=== PATIENT | male | born 1935 | race Caucasian/White ===

== ENCOUNTER 2017-04-09 21:26 | Inpatient (IN) | payer MEDICARE ==
[~2017-04-09] VITALS: Ht 185.4 cm; Wt 90.0 kg
--- NOTE | ~2017-04-09 | HEMODYNAMI ---
PATIENT:SALENA MCKEON MEDICAL RECORD: [id number] : 31 [facility] [id number] ADMISSION DATE: 04/09/17 Generatedon:04/10/201715:27 Patient name: SALENA MCKEON Patient #: [id number] : 1935 Date of study: 04/10/2017 Page: Of Hemodynamic Procedure Report Patient Data Patient Demographics Procedure consent was obtained First Name: SALENA Gender: Male Last Name: LINDA : 1935 [facility] Initial: TAMIR Age: 81 year(s) Patient #: [id number] Race: Unknown SSN: [id number] Additional ID: [id number] Contact details Address: [place] [address] State: [place] City: [place] Zip code: [address] Past Medical History Allergies: No known allergies Admission Admission Data Admission Date: 04/09/2017 Admission Time: 23:16 Arrival Date: 04/09/2017 Arrival Time: 23:16 Admit Source: Other Insurance Payor: Medicare Room #: D.2204 Height (in.): 72 BSA: 2.08 (m2) Height (cm.): 182.88 BMI: 25.63 (kg/m2) Weight (lbs.): 189 Weight (kg.): 85.73 Lab Results Lab Result Date: 04/10/2017 Lab Result Time: 0:00 Biochemistry Name Units Result Min Max BUN mg/dl 36 --(----)-* 7 18 Creatinine mg/dl 1.8 --(----)-* 0.6 1.3 CBC Name Units Result Min Max Hemoglobin g/dl 12.5 *-(----)-- 13.5 17.5 Procedure Procedure Types Cath Procedure Diagnostic Procedure LHC LHC w/Coronaries PCI Procedure Coronary Stent Initial Miscellaneous Procedures Moderate Sedation up to 30 minutes Procedure Description Procedure Date Procedure Date: 04/10/2017 Procedure Start Time: 14:59 Procedure End Time: 15:24 Procedure Staff Name Function Anuj Avalos MD Performing Physician Ally Hernandez RT Scrub Aury Watson RN Nurse Val Ram RT Monitor Procedure Data Cath Procedure Fluoroscopy Diagnostic fluoroscopy Total fluoroscopy Time: 3.6 time: 3.6 min min Diagnostic fluoroscopy Total fluoroscopy dose: 797 dose: 797 mGy mGy Contrast Material Contrast Material Type Amount (ml) Isovue 370 77 Entry Location Entry Primary Successful Side Size Upsize Upsize Entry Closure [place]dwell ccessful Closure Location (Fr) 1 (Fr) 2 (Fr) Remarks Device Remarks Radial Right 6 Fr Mechanical artery Short Compression Estimated blood loss: 5 ml Diagnostic catheters Device Type Used For End Catheter Placement TerumWami Optitorque 5Fr Multi-vessel [place] 4.5 catheter Angiography Procedure Complications No complications Procedure Medications Medication Administration Route Dosage Oxygen NC 2 l/min Lidocaine 2% added to field 20 Heparin Flush Bag added to field 2 bags (1000units/500ml NS) 0.9% NaCl I.V. 100 ml/hr Benadryl I.V. 50 mg Versed I.V. 1 mg Fentanyl I.V. 50 mcg Radial Cocktail I.A. 1 syringe (Verapomil 2mg/Nitro 400mcg/Heparin 1500units) Heparin Bolus I.V. 4000 units Integrilin (Bolus I.V. 7.9 ml 2mg/ml) Plavix P.O. 300 mg Versed I.V. 1 mg Fentanyl I.V. 50 mcg Aspirin P.O. 325 mg Hemodynamics Rest BSA: 2.08 (m2) HGB: 12.5 (g/dl) O2 Consumption: Estimated: 247.14 (ml/min) O2 Co nsumption indexed: Estimated:118.82 (ml/min/m) Heart Rate: 83 (bpm) Pressure Samples Time Site Value (mmHg) Purpose Heart Use Rate(bpm) 15:04 LV 108/8,9 Snapshot 96 Snapshots Pre Cath Intra NCS Post Cath Vital Signs Time Heart Resp SPO2 etCO2 OO5xerh NIBP (mmHg) Rhythm Pain Sedation Rate (ipm) (%) (mmHg) (mmHg) Status Level (bpm) 14:45:03 83 28 95 0 0 128/76(95) NSR 0 (11) 10(A) , No pain 14:49:15 81 16 96 0 0 120/75(97) NSR 0 (11) 10(A) , No pain 14:53:25 81 25 95 0 0 129/80(106) NSR 0 (11) 10(A) , No pain 14:58:24 80 15 95 0 0 129/83(109) NSR 0 (11) 10(A) , No pain 15:02:36 77 17 94 0 0 117/75(97) NSR 0 (11) 9(A) , No pain 15:06:46 82 18 95 0 0 96/62(80) NSR 0 (11) 9(A) , No pain 15:10:52 83 19 95 0 0 101/59(84) NSR 0 (11) 9(A) , No pain 15:14:57 81 19 94 0 0 103/64(82) NSR 0 (11) 9(A) , No pain 15:19:01 84 23 94 0 0 112/71(90) NSR 0 (11) 10(A) , No pain Medications Time Medication Route Dose Verified Delivered Reason Note s Effectiveness by by 14:53:28 Oxygen NC 2 l/min Anuj Buffie used for Robbie Watson RN procedure 14:53:36 Lidocaine 2% added 20ml Anuj Anuj for local to vial Robbie Avalos MD anesthetic field 14:53:45 Heparin Flush added 2 bags Anuj Anuj used for Bag to Robbie Avalos MD procedure (1000units/500ml field NS) 14:53:58 0.9% NaCl I.V. 100 Anujfariba Schneiderie used for ml/hr Robbie Watson strategic communications specialist 14:54:07 Benadryl I.V. 50 mg Anuj Buffie used for Robbie Watson RN procedure 15:00:32 Versed I.V. 1 mg Anuj Buffie for sedation Robbie Watson RN 15:00:38 Fentanyl I.V. 50 mcg Anuj Buffie for sedation Robbie Watson RN 15:02:51 Radial Cocktail I.A. 1 Anuj Anuj for (Verapomil syringe Robbie Avalos MD vasodilation 2mg/Nitro 400mcg/Heparin 1500units) 15:05:02 Versed I.V. 1 mg Anuj Schneiderie for sedation Robbie Watson RN 15:05:06 Fentanyl I.V. 50 mcg Anuj Jeffers for sedation Robbie Watson RN 15:10:48 Heparin Bolus I.V. 4000 Anuj Jeffers for veri fied units Robbie Watson RN anticoagulation with dr avalos 15:13:10 Integrilin I.V. 7.9 ml Anuj Jeffers for wast ed (Bolus 2mg/ml) Robbie Watson RN antiplatelet 2.1 ml therapy of vial 15:19:56 Plavix P.O. 300 mg Anuj Watson RN antiplatelet therapy 15:21:12 Aspirin P.O. 325 mg Anuj Jeffers for Robbie Watson RN antiplatelet therapy Procedure Log Time Note 14:37:18 Diagnostic Cath Status : Elective 14:37:47 Aury Watson RN sent for patient. Start room use. 14:37:48 Time tracking: Regular hours 14:37:55 Plan of Care:Hemodynamics will remain stable., Cardiac rhythm will remain stable., Comfort level will be maintained., Respiratory function will remain adequate., Patient/ family verbilizes understanding of procedure., Procedure tolerated without complication., Recovers from procedure without complications.. 14:38:08 Patient received from Med/Surg to CCL 1 Alert and oriented. Tansferred to table in Supine position. 14:40:10 Warm blankets applied, and miranda hugger turned on for patient comfort. 14:40:11 Correct patient and procedure confirmed by team. 14:40:13 Signed procedure consent form obtained from patient. 14:40:22 H&P Date Dictated: 04/09/2017 Within 30 days and on chart., H&P Addendum completed by physician on day of procedure. (MUST COMPLETE FOR ALL OUTPATIENTS). 14:40:23 Pre-procedure instructions explained to patient. 14:40:27 Family in waiting room. 14:40:29 Patient NPO since Midnight. 14:41:07 Patient allergic to No known allergies 14:41:15 Is the patient allergic to Iodine/contrast media? No. 14:42:07 Snore? Yes 14:42:28 Sleep apnea? No 14:42:31 Patient diabetic? Yes. 14:42:59 Airway obstruction? Yes Asthma 14:43:12 If diabetic: On Metformin? No 14:43:50 ECG and BP/O2 sat monitors applied to patient. 14:43:57 Vital chart was started 14:44:01 Baseline sample Acquired. 14:44:05 Rhythm: sinus rhythm 14:44:08 Full Disclosure recording started 14:44:28 Is patient on blood thinner?Yes 14:44:38 ACC The patient was administered the following blood thiners within the last 24 hours: ACCPlavix 14:44:43 Patient pain scale 0/10 ?. 14:44:55 IV patent on arrival in left forearm with 0.9% NaCl at [facility]. 14:45:03 Lab results completed and on chart. 14:45:08 Right Radial & Right Groin area was prepped with chlora-prep and draped in sterile fashion 14:45:09 Alarms reviewed by R. N. 14:45:10 Sharps counted by scrub and verified by R.N. 14:45:11 Physician paged 14:45:20 Use device set Radial Dx 14:45:22 Acist Syringe opened to sterile field. 14:45:22 Medline Cath Pack opened to sterile field. 14:45:23 Bag Decanter opened to sterile field. 14:45:23 Terumo 6Fr Slender Glidesheath opened to sterile field. 14:45:23 St Tino 260cm J .035 wire opened to sterile field. 14:45:24 Acist Hand Control opened to sterile field. 14:45:24 Acist Manifold opened to sterile field. 14:45:25 Tegaderm 4 x 4 opened to sterile field. 14:45:25 MBrace Wrist Support opened to sterile field. 14:51:30 Previous problem with sedation/anesthesia? No ? 14:51:33 Deviated septum? No 14:51:33 Opens mouth fully? Yes 14:51:34 Sticks out tongue? Yes 14:51:38 Dentures? No ? 14:53:28 Oxygen 2 l/min NC was administered by Aury Watson RN; used for procedure; 14:53:36 Lidocaine 2% 20ml vial added to field was administered by Anuj Avalos MD; for local anesthetic; 14:53:45 Heparin Flush Bag (1000units/500ml NS) 2 bags added to field was administered by Anuj Avalos MD; used for procedure; 14:53:58 0.9% NaCl 100 ml/hr I.V. was administered by Buffie Watson RN; used for procedure; 14:54:07 Benadryl 50 mg I.V. was administered by Aury Watson RN; used for procedure; 14:54:55 Pre procedure: right dorsailis pedis pulse 1+ Palpable, but thready & weak; easily obliterated 14:55:08 Physician arrived 14:55:09 --------ALL STOP TIME OUT------ 14:55:09 Final Timeout: patient, procedure, and site verified with staff and physician. All members of the team are in agreement. 14:55:13 Right Radial & Right Groin site verified by team. 14:55:18 Physical assessment completed. ASA score P 2 - A patient with mild systemic disease as per Anuj Avalos MD. 14:55:22 Sedation plan: IV Moderate Sedation Versed, Fentanyl 14:55:34 Use device set Radial Dx 14:55:35 Acist Syringe opened to sterile field. 14:55:35 Medline Cath Pack opened to sterile field. 14:55:36 Bag Decanter opened to sterile field. 14:55:36 Terumo 6Fr Slender Glidesheath opened to sterile field. 14:55:37 St Tino 260cm J .035 wire opened to sterile field. 14:55:38 Acist Hand Control opened to sterile field. 14:55:38 Acist Manifold opened to sterile field. 14:55:38 Tegaderm 4 x 4 opened to sterile field. 14:55:39 MBrace Wrist Support opened to sterile field. 14:59:46 Procedure started. 14:59:53 Local anesthetic to right radial artery with Lidocaine 2% by Anuj Avalos MD.INITIAL ACCESS ONLY 15:00:03 A 6 Fr Short sheath was inserted into the Right Radial artery 15:00:32 Versed 1 mg I.V. was administered by Aury Watson RN; for sedation; 15:00:38 Fentanyl 50 mcg I.V. was administered by Aury Watson RN; for sedation; 15:02:51 Radial Cocktail (Verapomil 2mg/Nitro 400mcg/Heparin 1500units) 1 syringe I.A. was administered by Anuj Avalos MD; for vasodilation; 15:02:54 A Terumo Optitorque 5Fr [place] 4.5 catheter was advanced over the wire and used for Multi-vessel Angiography. 15:04:05 LV hemodynamics recorded. 15:04:06 LV gram done using BAUM 15:04:15 EF : 55 % 15:05:02 Versed 1 mg I.V. was administered by Aury Watson RN; for sedation; 15:05:06 Fentanyl 50 mcg I.V. was administered by Aury Watson RN; for sedation; 15:06:00 RCA angiography performed. 15:06:03 Injector settings: Ml/sec: 3, Volume: 6, 15:06:06 Catheter removed. 15:06:31 Cordis 6FR XBLAD 3.5 guide catheter opened to sterile field. 15:08:36 LCA angiography performed. 15:08:39 Injector settings: Ml/sec: 3, Volume: 6, 15:10:48 Heparin Bolus 4000 units I.V. was administered by Aury Watson RN; for anticoagulation; verified with dr avalos 15:11:04 Catheter removed. 15:11:15 Proceeding to intervention. 15:11:40 Novogen BasixCompak Inflation Kit opened to sterile field. 15:11:41 Guillaume Whisper J 300cm 0.014 guide wire opened to sterile field. 15:12:14 Medtronic Launcher 6Fr AR 1.0 guide catheter opened to sterile field. 15:12:46 6 Fr ar 1 guide catheter was inserted over the wire 15:12:54 Achieve3000isper wire advanced. 15:13:10 Integrilin (Bolus 2mg/ml) 7.9 ml I.V. was administered by Aury Watson RN; for antiplatelet therapy; wasted 2.1 ml of vial 15:15:12 Inflation Number: 1 A Biofreedom 3.5 x 11 stent (No Cost Implant) was prepped and advanced across the Mid RCA. The stent was deployed at 11 LILA for 0:10 (min:sec). 15:16:36 Stent catheter was removed intact over wire. 15:16:36 Wire removed. 15:16:37 Guide catheter removed. 15:16:54 Terumo TR Band Standard opened to sterile field. 15:17:06 Sheath removed intact; hemostasis achieved with Mechanical Compression to the Right Radial artery. 15:17:08 Procedure ended.(Physican Out) 15:17:28 Fluoroscopy time 03.60 minutes. 15:17:37 Fluoroscopy dose: 797 mGy 15:17:37 Flurop Dose total: 797 15:17:48 Contrast amount:Isovue 370 77ml. 15:17:50 Sharps counted by scrub and verified by R.N. 15:17:51 Insertion/operative site no bleeding no hematoma. 15:17:55 Post right radial artery:stable 15:17:57 Post Procedure Pulses reassessed and unchanged 15:17:59 Post procedure rhythm: unchanged. 15:18:02 Estimated blood loss: 5 ml 15:18:03 Post procedure instruction explained to patient.Patient verbalizes understanding. 15:18:04 Patient needs reinforcement of post procedure teaching. 15:18:25 Procedure type changed to Cath procedure, Diagnostic procedure, LHC, LHC w/Coronaries, PCI procedure, Coronary Stent Initial, Miscellaneous Procedures, Moderate Sedation up to 30 minutes 15:18:26 Procedure and supply charges have been captured, reviewed, submitted and are correct. 15:18:31 Procedure Complication : No complications 15:18:34 Vital chart was stopped 15:18:34 See physician's report for complete and final results. 15:19:53 Patient Weight : 189 kg 15:19:55 Patient Height : 72 cm 15:19:56 Plavix 300 mg P.O. was administered by Aury Watson RN; for antiplatelet therapy; 15:19:56 Admit Source: Other 15:20:09 Arrival Date: 04/09/2017 11:16:00 PM 15:20:16 Insurance Payor : Medicare 15:21:12 Aspirin 325 mg P.O. was administered by Aury Watosn RN; for antiplatelet therapy; 15:23:38 Lab Result : Hemoglobin 12.5 g/dl 15:23:38 Lab Result : Creatinine 1.8 mg/dl 15:23:38 Lab Result : BUN 36 mg/dl 15:24:21 Patient transfered to [facility] with Stretcher. 15:24:23 Procedure ended. 15:24:23 Full Disclosure recording stopped 15:24:30 ACC-PCI Only Patient was given prescriptions, or instructed by Anuj Avalos MD to start/continue the following medications upon discharge: Plavix 15:24:32 End room use (Document Last) Intervention Summary Intervention Notes Time ActionType Lesion and Equipment Action# Pressure Duration Attributes Used 15:15:12 Place stent Mid RCA Biofreedom 1 11 00:10 3.5 x 11 stent (No Cost Implant) Device Usage Item Name Manufacture Quantity Catalog Hospital Part Current Minimal Lot# / Number Charge Number Stock Stock Serial# Code Acist Acist 2 06932 999934 125418 013192 20 Syringe Medical Systems Inc Medline Cardinal 2 [id number] 214226 30783 267657 5 Cath Pack Health Bag Microtek 2 2002S 579385 92584 355911 5 DecSpecialtyCare Medical Inc. Terumo 6Fr Terumo 2 [id number] 068239 220955 670290 [address] Tino St Tino 2 938038 559028 360701 779802 30 260cm J .035 wire Acist Hand Acist 2 54115 859844 493517 354369 5 Control Medical Systems Inc Acist Acist 2 16866 700972 525052 848141 5 Manifold Medical Systems Inc Tegaderm 4 3M 2 1626W 803439 072551 606906 5 x 4 MBrace Advanced 2 140-0250-00 422865 53662 674503 5 Wrist Vascular Support Dynamics Terumo Terumo 1 405012 711947 620304 386990 5 Optitorque 5Fr [place] 4.5 catheter Cordis 6FR Cardinal 1 [id number] 828605 253814 602598 10 XBLAD 3.5 Health guide catheter Merit Merit 1 [id number] 304991 186355 127000 15 BasixCompak Medical Inflation Kit Guillaume Guillaume 1 [id number] 272173 198685 270744 5 Whisper J Vascular 300cm 0.014 guide wire Medtronic Medtronic 1 [id number] 840169 80864 978002 1 Launcher 6Fr AR 1.0 guide catheter Biofreedom Biosensors 1 [facility]2-9397 430840 975498 5 [id number] 3.5 x 11 [place] SA stent (No Cost Implant) Terumo TR Terumo 1 [id number] 198649 874097 391881 40 Band Standard Signature Audit Early Stage Time Signature Unsigned Intra-Procedure 04/10/2017 Val Ram 3:27:10 PM RT(R) Signatures Monitor : Val Ram RT Signature : Date : Time : [place] [address] [place] [address]
[~2017-04-09 21:26] MED LIST: ADVAIR 250/501 DISK INH; CATAPRES0.1 MG PO; COMBIVENT RESPIM4 GM INH; COREG 3.1253.125 MG PO; ELIQUIS5 MG PO; FISH OIL 1,2001 CA1 PO; FLOMAX0.4 MG PO; GLUCOTROL XL 1010 MG PO; HEMOCYTE PLUS C1 CAP PO; HYDROCODONE-APA1 TAB PO; JANUMET 50-1,001 TAB PO; JANUVIA50 MG PO; LANOXIN125 MCG PO; LASIX20 MG PO; LEVAQUIN500 MG PO; LIPITOR20 MG PO; MUCINEX600 MG PO; PLAVIX75 MG PO; PRADAXA150 MG PO; PRAVACHOL20 MG PO; PROVENTIL/2.5 MG/3 M INH; PROVENTIL/2.5 MG/3 M NEB; RYTHMOL150 MG GT; SAW PALMETTO450 MG PO; SINGULAIR10 MG PO; SYNTHROID125 MCG PO; VITAMIN C1000 MG PO; VITAMIN D31000 UNIT PO; ZESTRIL10 MG PO
[2017-04-09 22:27] LABS: BASOPHILS 0.1 % (0-2); HEMATOCRIT 38.1 % (42.0-54.0); HEMOGLOBIN 12.4 g/dL (13.5-17.5); IMMATURE GRANULOCYTES 0.2 % (0-5); LYMPHOCYTES 4.4 % (15-50); MCH 30.5 pg (26.0-34.0); MCHC 32.5 g/dL (31.0-37.0); MCV 93.6 fL (80.0-100.0); MEAN PLATELET VOLUME 10.6 fL (7.4-10.4); MONOCYTES 8.1 % (2-11); NEUTROPHILS 86.2 % (40-80); PLATELET COUNT 164 10x3/uL (130-400); RBC 4.07 10x6/uL (4.20-6.10); RDW 15.3 % (11.5-14.5); WBC 10.3 10x3/uL (4.8-10.8)
[2017-04-09 22:32] LABS: ALBUMIN 3.6 g/dL (3.4-5.0); ANION GAP 13.3 mmol/L (8-16); BILIRUBIN - TOTAL 1.36 mg/dL (0.2-1.3); CALCIUM 9.5 mg/dL (8.5-10.1); CARBON DIOXIDE 27.3 mmol/L (21.0-32.0); CREATININE - SERUM 1.8 mg/dL (0.6-1.3); POTASSIUM - SERUM 4.6 mmol/L (3.5-5.1); PROTEIN - SERUM 7.9 g/dL (6.4-8.2)
[2017-04-09 22:53] LABS: TROPONIN-I 0.225 ng/mL (0.000-0.060)
--- NOTE | 2017-04-10 00:30 | NUR ---
PT ARRIVED TO FLOOR FROM ER VIA WHEELCHAIR ESCORTED BY HOSPITAL STAFF. PT UP AD HARVINDER. ALERT AND ORIENTED X4. ANSWERS QUESTIONS APPROPRIATELY. PT DENIES PAIN OR NEEDS AT THIS TIME. CALL LIGHT AND H2O IN PT REACH. BED IN LOW POSITION. SIDE RAILS UP X2.
[2017-04-10 00:31] VITALS: BP 106/67; BMI 24.9
[2017-04-10 04:00] VITALS: BP 121/68; BP 127/71
--- NOTE | 2017-04-10 07:15 | NUR ---
PATIENT RECEIVED IN LOW MOYA POSITION RESTING WITH EYES CLOSED. RESPIRATIONS EVEN AND UNLABORED. BED IN LOW POSITION. CALL LIGHT IN REACH.
[2017-04-10 07:51] VITALS: BP 125/74
--- NOTE | 2017-04-10 07:55 | NUR ---
PATIENT PLACED ON TELEMETRY PER ORDERS. ELECTRONICS PROCESSOR REPORTS 83 SINUS RHYTHM WITH 1ST DEGREE AV BLOCK. PATIENT REFUSES SCDS STATES HE WOULD RATHER JUST GET UP A WALK.
[2017-04-10 09:18] LABS: CKMB 1.9 U/L (0.0-3.6); CREATINE KINASE 52 UL (21-232)
[2017-04-10 10:28] LABS: BASOPHILS 0 % (0-2); EOSINOPHILS 0 % (0-7); HEMATOCRIT 38.8 % (42.0-54.0); HEMOGLOBIN 12.5 g/dL (13.5-17.5); IMMATURE GRANULOCYTES 0.2 % (0-5); LYMPHOCYTES 5.7 % (15-50); MCH 30.3 pg (26.0-34.0); MCHC 32.2 g/dL (31.0-37.0); MCV 93.9 fL (80.0-100.0); MEAN PLATELET VOLUME 10.6 fL (7.4-10.4); MONOCYTES 2.5 % (2-11); NEUTROPHILS 91.6 % (40-80); PLATELET COUNT 143 10x3/uL (130-400); RBC 4.13 10x6/uL (4.20-6.10); RDW 15.4 % (11.5-14.5)
[2017-04-10 10:29] LABS: WBC 5.6 10x3/uL (4.8-10.8)
[2017-04-10 10:52] VITALS: Ht 185.4 cm; Wt 90.0 kg
[2017-04-10 12:00] VITALS: BP 114/62
[2017-04-10] MEDS ORDERED: GLIMEPIRIDE2 MG PO (12:00)
--- NOTE | 2017-04-10 12:00 | NUR ---
SITTING UP IN CHAIR AT BEDSIDE. NO SIGNS OF DISTRESS NOTED. DENIES NEEDS. CALL LIGHT IN REACH.
[2017-04-10] MEDS ORDERED: FUROSEMIDE20 MG PO (12:01)
[2017-04-10] MEDS ORDERED: CELEXA10 MG PO (12:01)
--- NOTE | 2017-04-10 14:34 | NUR ---
PATIENT OFF FLOOR TO STUDIO DESIGNER VIA BED
--- NOTE | 2017-04-10 15:56 | NUR ---
RECIEVED FROM STOPPERER ASSEMBLER BY MATTHEW. BOOM WNL. RIGHT WRIST STABLE WITH TR BAND INTACT. WILL MONITOR.
[2017-04-10 19:00] VITALS: BP 125/70
--- NOTE | 2017-04-10 23:33 | NUR ---
INITIAL ROUNDS COMPELTED AT 1900 HRS. PT RESTING WITH EYES CLOSED. RESP EVEN AND REGULAR. REMOVED 5CC OF AIR FROM TR BAND AT 1910 HRS WITH BLEEDING NOTED. 5CC OF AIR REPLACED IN TR BAND. 5CC REMOVED FROM TR BAND AT 1950 HRS. NO BLEEDING NOTED. ASSESSMENT COMPLETED AT 2009 HRS. VSS. SR WITH FIRST DEGRESS AV BLOCK HR 70. O2 2LNC. LUNGS DIMINISHED IN BASES BILAT. AGUILAR. GOOD PALPABLE PEDAL PULSES. IV TO LFA WITH NS AT 100CC/HR. IV PATNENT. REMAINDER OF AIR REMOVED FROM TR BAND WITH SLIGHT OOZING NOTED. 5CC OF AIR REPLACED AND BLEEDING STOPPED. AT 2054 H RS TR BAND REMOVED AND PRESSURE APPLIED FOR 10 MINUTES. NO BLEEDING NOTED. SMALL BRUISE TO SITE NOTED. DRESSING APPLIED. INFORMED PT TO CALL ALYSE IF ANY BLEEDING OCCURS. GOOD RADIAL PULSE. RECHECKED SITE AT 2119 WITH NO BLEEDING NOTED. PM MEDS GIVEN. SITE RECHECKED A 2229 HRS WITH SITE CLEAN, DRY AND INTACT. GOOD R RADIAL PULSE. PT CURRENTLY RESTING WITH EYES CLOSED. RESP EVEN AND REGULAR. SR UP X2,CALL LIGHT WITHIN REACH.
[2017-04-11] VITALS: BP 123/81
--- NOTE | 2017-04-11 00:01 | NUR ---
NO CHANGES TO R WRIST NOTED. DRESSING CLEAN, DRYA ND INTACT. PALPABLE RADIAL PULSE. PT RESTING WITH EYES CLOSED. RESP EVEN AND REGULAR. SR UP X2, CALL LIGHT WITHIN REACH.
--- NOTE | 2017-04-11 02:33 | NUR ---
PT RESTING WITH EYES CLOSED. RESP EVEN AND REGULAR. SR UP X2,CALL LIGHT WITHIN REACH.
[2017-04-11 04:00] VITALS: BP 129/83
--- NOTE | 2017-04-11 04:13 | NUR ---
NO CHANGES TO R WRIST NOTED. GOOD PALPABLE RADIAL PULSE. R WRIST DRESSING CLEAN, DRY AND INTACT. WILL CONTINUE TO MONITOR.
--- NOTE | 2017-04-11 06:22 | NUR ---
VSS THROUGHOUT NIGHT. SR PER CM. PT DENIED ANY DISCOMFORT. NEEDS MET; WILL CONTINUE TO MONITOR.
--- NOTE | 2017-04-11 07:30 | NUR ---
RECEIVED PT IN BED EYES CLOSED RESP UNLABORED NAD NOTED
[2017-04-11 08:01] VITALS: BP 128/873
[2017-04-11 11:34] VITALS: BP 117/68
[2017-04-11 15:42] VITALS: BP 123/72
[2017-04-11 20:20] VITALS: BP 131/75
[2017-04-12] VITALS (7 sets, daily range): BP systolic 113–137; BP diastolic 71–84
[2017-04-12 05:09] LABS: BASOPHILS 0 % (0-2); EOSINOPHILS 0.2 % (0-7); HEMATOCRIT 37.3 % (42.0-54.0); HEMOGLOBIN 11.9 g/dL (13.5-17.5); IMMATURE GRANULOCYTES 0.3 % (0-5); MCH 29.8 pg (26.0-34.0); MCHC 31.9 g/dL (31.0-37.0); MCV 93.3 fL (80.0-100.0); MEAN PLATELET VOLUME 10.9 fL (7.4-10.4); MONOCYTES 8.1 % (2-11); NEUTROPHILS 87.4 % (40-80); PLATELET COUNT 149 10x3/uL (130-400); RDW 15.5 % (11.5-14.5); WBC 9.5 10x3/uL (4.8-10.8)
[2017-04-12 05:25] LABS: ANION GAP 14.9 mmol/L (8-16); CALCIUM 8.7 mg/dL (8.5-10.1); CARBON DIOXIDE 24.3 mmol/L (21.0-32.0); CREATININE - SERUM 1.7 mg/dL (0.6-1.3); POTASSIUM - SERUM 4.2 mmol/L (3.5-5.1)
[2017-04-13] VITALS: BP 133/86
[2017-04-13 04:00] VITALS: BP 126/79
[2017-04-13 06:06] LABS: CALCIUM 9.2 mg/dL (8.5-10.1); CARBON DIOXIDE 24.2 mmol/L (21.0-32.0); CREATININE - SERUM 1.5 mg/dL (0.6-1.3); POTASSIUM - SERUM 4.2 mmol/L (3.5-5.1)
--- NOTE | 2017-04-13 07:37 | NUR ---
ASSESSMENT DONE. DENIES NEEDS.
--- NOTE | 2017-04-13 07:54 | NUR ---
TO X-RAY BY W/C. WILL CONT. PLAN OF CARE.
--- NOTE | 2017-04-13 11:31 | NUR ---
* Is the patient Alert and Oriented? Yes 0 * How many steps to enter\exit or inside your home? 0 0 * PCP Dr. Myers 0 * Pharmacy [facility] 0 * Preadmission Environment Home Alone 0 * ADLs Independent 0 * Equipment Nebulizer 0 * List name and contact numbers for known caregivers / representatives who currently or will assist patient after discharge: Fara Najera [phone] 0 * Additional services required to return to the preadmission environment? Yes 0 * Can the patient safely return to the preadmission environment? Yes 0 * Has this patient been hospitalized within the prior 30 days at any hospital? No 04/13/2017 11:33 DCP: Discharge Planning Patient Name: SALENA MCKEON Admission Status: ER Accout number: [id number] Admission Date: 04-09-2017 : 1935 Admission Diagnosis:UNSPECIFIED BACTERIAL PNEUMONIA Attending: ALEX Current LOS: 4 Anticipated DC Date: 04-14-2017 Planned Disposition: Home Primary Insurance: [employer] MEDICARE PPO or HMO Discharge Planning Comments: CM met with patient to assess dc plans/needs. Patient states he lives alone & is independent with all ADL's & IADL's. 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 He reports he has a nebulizer at home. At dc, he will return home. He states he has good support from family & friends & does not want home health. Anticipate dc in next day or two. CM will follow. Prime Minister: Katy Stack
[2017-04-13 12:05] VITALS: BP 135/83
[2017-04-13 16:00] VITALS: BP 134/85
--- NOTE | 2017-04-13 18:13 | NUR ---
WITHOUT CHANGES OR DISTRESS NOTED AT THIS TIME. DENIES NEEDS
--- NOTE | 2017-04-13 19:00 | NUR ---
INITIAL ROUNDS MADE. PT AMBULATING HALLS, NO NEEDS OR C/O VOICED. WILL CONT TO MONITOR.
[2017-04-13 21:27] VITALS: BP 132/76
--- NOTE | 2017-04-14 00:38 | NUR ---
TERRITORY SALES MANAGER AT BEDSIDE FOR VS. NEEDS ADDRESSED AT THIS TIME. CALL LIGHT IN REACH. WILL CONT TO MONITOR.
[2017-04-14 01:46] VITALS: BP 124/68
--- NOTE | 2017-04-14 05:25 | NUR ---
RESTING WELL WITH EYES CLOSED, CONT TO MONITOR.
[2017-04-14 06:23] LABS: ANION GAP 15.5 mmol/L (8-16); CALCIUM 9.1 mg/dL (8.5-10.1); CARBON DIOXIDE 22.8 mmol/L (21.0-32.0); CREATININE - SERUM 1.3 mg/dL (0.6-1.3); POTASSIUM - SERUM 4.3 mmol/L (3.5-5.1)
[2017-04-14 06:24] VITALS: BP 137/80
--- NOTE | 2017-04-14 07:31 | NUR ---
ASSESSMENT DONE. DENIES NEEDS.
[2017-04-14 08:26] VITALS: BP 137/88
--- NOTE | 2017-04-14 09:30 | NUR ---
UP TO SHOWER WITH SPECIAL SERVICE REPRESENTATIVE ASSIST.
[2017-04-14 11:15] VITALS: BP 134/88
[2017-04-14 15:44] VITALS: BP 130/78
--- NOTE | 2017-04-14 16:55 | NUR ---
WITHOUT CHANGES OR DISTRESS NOTED AT THIS TIME.
[2017-04-14 17:18] LABS: BASOPHILS 0.1 % (0-2); HEMATOCRIT 39.7 % (42.0-54.0); HEMOGLOBIN 12.7 g/dL (13.5-17.5); IMMATURE GRANULOCYTES 0.6 % (0-5); LYMPHOCYTES 5.6 % (15-50); MCH 30.2 pg (26.0-34.0); MCV 94.5 fL (80.0-100.0); MEAN PLATELET VOLUME 10.1 fL (7.4-10.4); MONOCYTES 7.6 % (2-11); NEUTROPHILS 84.1 % (40-80); PLATELET COUNT 143 10x3/uL (130-400); RDW 15.5 % (11.5-14.5); WBC 8.4 10x3/uL (4.8-10.8)
[2017-04-14 17:33] LABS: APTT 35.2 SECONDS (22.8-39.4); INR 1.32 (0.85-1.17); PROTIME 16.2 SECONDS (11.6-15.0)
--- NOTE | 2017-04-14 18:07 | CN ---
PATIENT NAME:SALENA MCKEON MEDICAL RECORD: [id number] : 31 LOCATION:D. D.2121 ADMIT DATE: 04/09/17 ACCOUNT: [id number] CONSULTING PHYSICIAN: PEACE VALENZUELA MD REFERRING PHYSICIAN: OLY GALLEGOS DO DATE OF CONSULTATION: 04/10/2017 Cardiology Consultation DIAGNOSES: 1. Non-Q-wave myocardial infarction. 2. Coronary artery disease. 3. Previous percutaneous transluminal coronary angioplasty stent. 4. Paroxysmal atrial fibrillation. 5. Pneumonia. 6. Chronic obstructive pulmonary disease. 7. Past smoking history. 8. Hypertension. 9. Igd-ulcpgbb-hqcafzilw diabetes. HISTORY OF PRESENT ILLNESS: Mr. Mckeon presents with shortness of breath and chest tightness. He has been treated for pneumonia; however, troponin is positive for a non-Q-wave myocardial infarction. He does have history of coronary artery disease and cardiac intervention, but none for the past few years. His chest tightness has been worsening over the past 2 weeks, just like that of his previous angina. His EKG is with no acute ST-T abnormalities. He continues to have the episodes of chest tightness. PHYSICAL EXAMINATION: GENERAL APPEARANCE: Well-nourished, well-developed, appears stated age. Level of distress, comfortable. PSYCHIATRIC: Mental status, alert, normal affect. Orientation, oriented to time, place and person. EYES: Lids and conjunctiva, noninjected. No discharge, no pallor. ENT: Lips, teeth, gums, normal dentition. Oropharynx, no cyanosis, no pallor. NECK: Carotid arteries, bilateral normal upstroke, no bruits, no thrills. JUGULAR VEINS: No jugular venous pressure or distention. CERVICAL LYMPH NODES: Nontender, nonenlarged. THYROID: Not enlarged. Nontender. No nodules. LUNGS: Respiratory effort, unlabored. CHEST: Normal curvature. No thoracic deformity. No chest wall tenderness. Percussion, resonant. Auscultation, clear. No wheezes, no rales, no rhonchi. CARDIOVASCULAR: Precordial exam, nondisplaced. No heaves or pericardial thrills. Rate and rhythm, regular. Heart sounds, normal S1, normal S2. No S3, no gallop, no rub. Systolic murmur, not heard. Diastolic murmur, not heard. EXTREMITIES: No cyanosis, no edema. Peripheral pulses, full and equal in all extremities, except as noted. No bruits appreciated. ABDOMEN: Soft, nondistended. Normal aorta. No bruit. Nontender. No masses. Liver, nontender, no hepatomegaly. Spleen, nontender, no splenomegaly. MUSCULOSKELETAL: No joint tenderness. No joint swelling. No erythema. NEUROLOGICAL: Normal gait, normal strength, normal tone. SKIN: Warm and dry. REVIEW OF SYSTEMS: The patient reports easy bruising but reports no swollen glands. The patient reports no fever, no night sweats, no significant weight CONSULT REPORT [id number] SALENA MCKEON gain, no significant weight loss. No significant exercise tolerance. The patient reports no dry eyes, no irritation, no vision change. Patient reports no difficulty hearing and no ear pain. Patient reports no frequent nose bleeds or nose and sinus problems. Patient reports on arm pain on exertion. No shortness of breath while lying down. No history of heart murmur. Patient reports no cough, no wheezing or coughing up blood. Patient reports no abdominal pain, no vomiting. Normal appetite. No diarrhea and not vomiting blood. No nausea and no constipation. Patient reports no incontinence. No difficulty urinating. No hematuria. No increased frequency. Patient reports no muscle aches. No weakness, no arthralgias, no back pain. No swelling of the extremities. Patient reports no abnormal mole, no jaundice, no rashes. Reports no loss of consciousness. No weakness and no numbness. No seizures, dizziness, or headaches. The patient reports no depression, no sleep disturbance, feeling safe in a relationship and no alcohol abuse. Patient reports on fatigue. Reports no runny nose or sinus pressure. No itching, no hives, and no frequent sneezing. OVERALL IMPRESSION: Non-Q-wave myocardial infarction. At this time, we will load him with Plavix. Plan for cardiac catheterization. Further care depends upon the findings of the catheterization. TRANSINT:[id number] Voice Confirmation ID: [id number] DOCUMENT ID: [id number] PEACE VALENZUELA MD at 1807 CC: [id number] DICTATION DATE: 04/10/17 1003 LEAN SIX SIGMA SENIOR SPECIALIST: 04/10/17 1330 [place] [id number]
--- NOTE | 2017-04-14 18:08 | OP ---
PATIENT NAME: SALENA MCKEON MEDICAL RECORD: [id number] :31 LOCATION:D.M2 D.2121 ADMISSION DATE:04/09/17 SURGEON: PEACE VALENZUELA MD DATE OF OPERATION: 04/10/2017 PROCEDURES: 1. PTCA stent RCA. 2. Left heart catheterization. 3. Selective coronary angiography. 4. Left ventriculogram. INDICATION: Unstable angina, non-Q-wave myocardial infarction, coronary artery disease. PROCEDURE IN DETAIL: Informed consent was obtained and after detailed explanation of risks, benefits as well as alternative therapies, the patient elected to proceed with angiogram and angioplasty. The right radial area was prepped and draped in normal sterile fashion. The right radial artery was cannulated via modified Seldinger technique with placement of 6-Tamazight sheath. All catheters exchanged through this sheath. FINDINGS: Left ventriculogram was performed in the standard 30-degree BAUM view, reveals good cardiac wall motion throughout all segments. Overall ejection fraction estimated 60%. SELECTIVE CORONARY ANGIOGRAPHY: 1. Left main showed no significant angiographic disease. 2. Left anterior descending has foja-pd-ryvevwrf irregularities, but no flow-limiting stenosis. 3. Left circumflex with exik-jm-gxuqkjvk irregularities, but no flow-limiting stenosis. 4. The right coronary has previously placed stent. This is widely patent; however, just proximal to this, there is a greater than 70% stenosis throughout. PTCA STENT OF THE RIGHT CORONARY: The stent used were 3.5 x 11 mm BioFreedom. Result was 0% residual stenosis. There is CHRISTIANO 3 flow before and after this intervention. The lesion length was approximately 8 mm in a 3.5 vessel. OVERALL IMPRESSION: Successful percutaneous transluminal coronary angioplasty stent of the right coronary going from greater than 70% initial stenosis to 0% residual. TRANSINT:[id number] Voice Confirmation ID: [id number] DOCUMENT ID: [id number] PEACE VALENZUELA MD at 1808 CC: [id number] DICTATION DATE: 04/10/17 1525 SALES SPECIALIST: 04/10/17 2224 ADM [id number] [place] [address]
--- NOTE | 2017-04-14 19:00 | NUR ---
INITIAL ROUNDS MADE. PT SITTING UP IN BED WATCHING TV. NO NEEDS OR C/O AT THIS TIME. CALL LIGHT IN REACH. WILL CONT TO MONITOR.
[2017-04-14 20:19] VITALS: BP 144/100
[2017-04-15 00:41] VITALS: BP 137/96
[2017-04-15 04:23] VITALS: BP 131/88
--- NOTE | 2017-04-15 06:45 | NUR ---
SITTING UP ON SIDE OF BED. C/O SOB AND 'DIFF CATCHING BREATH' WHILE LYING DOWN.
[2017-04-15 08:00] VITALS: BP 154/95
[2017-04-15 15:52] VITALS: BP 122/73
[2017-04-15 16:34] VITALS: BP 127/78
--- NOTE | 2017-04-15 17:10 | NUR ---
THIS SHIFT: PT WENT FOR BRONCHOSCOPY. GINGER WELL. HAS BEEN VERY SLEEPY SINCE BUT IS AROUSABLE. CAN SWALLOW WELL. ENCOURAGED TO DEEP BREATHE. MONITOR SHOWS SR WITH 1 DEGREE BLOCK.@ 71. WILL CONTINUE TO MONITOR.
[2017-04-15 19:00] VITALS: BP 127/83
--- NOTE | 2017-04-15 21:45 | NUR ---
AWAITING CALL BACK FROM MICHELE GOMEZ, WANTING TO RESTART SOME OF HIS HOME MEDS. DIFFICULTY URINATING.
[2017-04-16 04:00] VITALS: BP 139/83
[2017-04-16 05:38] LABS: BASOPHILS 0.3 % (0-2); EOSINOPHILS 1.5 % (0-7); HEMATOCRIT 37.3 % (42.0-54.0); IMMATURE GRANULOCYTES 0.6 % (0-5); LYMPHOCYTES 6.3 % (15-50); MCH 30.3 pg (26.0-34.0); MCHC 32.2 g/dL (31.0-37.0); MCV 94.2 fL (80.0-100.0); MEAN PLATELET VOLUME 10.1 fL (7.4-10.4); MONOCYTES 8.9 % (2-11); NEUTROPHILS 82.4 % (40-80); RBC 3.96 10x6/uL (4.20-6.10); RDW 15.3 % (11.5-14.5); WBC 9.6 10x3/uL (4.8-10.8)
[2017-04-16 06:11] LABS: ANION GAP 14.8 mmol/L (8-16); CALCIUM 8.7 mg/dL (8.5-10.1); CARBON DIOXIDE 23.2 mmol/L (21.0-32.0); CREATININE - SERUM 1.5 mg/dL (0.6-1.3)
[2017-04-16 06:17] LABS: PLATELET COUNT 178 10x3/uL (130-400)
--- NOTE | 2017-04-16 07:30 | NUR ---
RECEIVED PT IN BED EYES CLOSED RESP UNLABORED NAD NOTED
[2017-04-16 08:41] VITALS: BP 132/85
[2017-04-16 12:54] VITALS: BP 132/87
[2017-04-16 16:20] VITALS: BP 119/78
[2017-04-16 19:00] VITALS: BP 139/87
[2017-04-16 19:12] LABS: ACID FAST SMEAR Negative (()); AFB SPECIMEN PROCESSING Concentration (())
--- NOTE | 2017-04-16 19:17 | NUR ---
PT RECEIVED SITTING UP IN BED READING BOOK AT THIS TIME. AAOX3. ASSESSMENT COMPLETED PER FLOWSHEET AT THIS TIME. SOLU-MEDROL GIVEN IVP PER ORDERS. PT REQUESTS CUP OF ICE AT THIS TIME. DENIES OTHER NEEDS. BED LOW. PHONE AND CALL LIGHT IN REACH. SRX2.
--- NOTE | 2017-04-16 20:44 | NUR ---
PM MEDS GIVEN AT THIS TIME. PT RECEIVING BREATHING TX. FLUSHED S/L. PATENT. PT DENIES NEEDS. BED LOW. PHONE AND CALL LIGHT IN REACH. SRX2.
--- NOTE | 2017-04-16 22:00 | NUR ---
ROCEPHIN IVPB INITIATED AT THIS TIME. PT DENIES NEEDS. BED LOW. PHONE AND CALL LIGHT IN REACH. SRX2.
[2017-04-17] VITALS: BP 140/92
--- NOTE | 2017-04-17 00:32 | NUR ---
PT SITTING UP IN BED READING AT THIS TIME. NO NEEDS NOTED.
--- NOTE | 2017-04-17 02:34 | NUR ---
PT UP TO USE RESTROOM AT THIS TIME. NO NEEDS NOTED.
--- NOTE | 2017-04-17 03:50 | NUR ---
PT SITTING UP ON SIDE OF BED READING BOOK AT THIS TIME. DENIES NEEDS. BED LOW. PHONE AND CALL LIGHT IN REACH. SRX2.
[2017-04-17 04:00] VITALS: BP 107/76
--- NOTE | 2017-04-17 05:37 | NUR ---
SOLU-MEDROL IVP AND PROTONIX PO GIVEN AT THIS TIME. PT DENIES NEEDS. BED LOW. PHONE AND CALL LIGHT IN REACH. SRX2.
--- NOTE | 2017-04-17 07:30 | NUR ---
RECEIVED PT IN BED EYES CLOSED RESP UNLABORED NAD NOTED
[2017-04-17 08:12] VITALS: BP 123/70
[2017-04-17 12:14] VITALS: BP 130/70
[2017-04-17 14:24] LABS: FUNGUS STAIN Final report (())
[2017-04-17 15:43] VITALS: BP 117/69
--- NOTE | 2017-04-17 15:55 | NUR ---
Nutrition Follow Up: Pt is eating 63% meal avg on an AHA diet. +BM 04/16/17. Wt stable. Labs reviewed - Glucose trending down. Meds noted including Solu-Medrol. Rec continue current diet. RD following.
[2017-04-17] MEDS ORDERED: Levaquin PO (16:39)
[2017-04-17] MEDS ORDERED: BENZONATATE200 MG PO (16:43)
[2017-04-17] MEDS ORDERED: FLORAJEN3 CAPS460 MG PO (16:44)
[2017-04-17] MEDS ORDERED: PREDNISONE10 MG PO (16:45)
--- NOTE | 2017-04-17 19:00 | NUR ---
RECIEVED REPORT FROM DAY SHIFT WITH DISCHARGE ORDERS IN PROGRESS. PATIENT INFORMED WITH FAMILY AT SIDE WAITING. 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 PIV REMOVED FROM LEFT ARM WITH DRESSING APPLIED. TELEMETRY REMOVED.
[2017-04-17] MEDS ORDERED: LEVAQUIN500 MG PO (19:05)
--- NOTE | 2017-04-17 20:04 | NUR ---
VERBAL AND WRITTEN DISCHARGE GONE OVER WITH PATIENT AND FAMILY BOTH VERBALIZED UNDERSTANDING. TRANSPORTED VIA TO PARKING FOR TRANSPORT HOME
== END 2017-04-17 20:05 | disposition home or self-care (01) | DRG 246 ==
LOC: D.ER 21:26 → D.MS 23:16 → D.M2 23:16
PROVIDERS: Emergency Medicine; Family Medicine; Internal Medicine Interventional Cardiology; Internal Medicine Pulmonary Disease; ADMIT Family Medicine
PROC: B2111ZZ Fluoroscopy of Multiple Coronary Arteries using Low Osmolar Contrast (ICD-10-PCS; 2017-04-10)
PROC: B2151ZZ Fluoroscopy of Left Heart using Low Osmolar Contrast (ICD-10-PCS; 2017-04-10)
PROC: 027034Z Dilation of Coronary Artery, One Artery with Drug-eluting Intraluminal Device, Percutaneous Approach (ICD-10-PCS; principal; 2017-04-10 15:00)
PROC: 4A023N7 Measurement of Cardiac Sampling and Pressure, Left Heart, Percutaneous Approach (ICD-10-PCS; 2017-04-10 15:00)
PROC: 0BB78ZX Excision of Left Main Bronchus, Via Natural or Artificial Opening Endoscopic, Diagnostic (ICD-10-PCS; 2017-04-15)
PROC: 0BB38ZX Excision of Right Main Bronchus, Via Natural or Artificial Opening Endoscopic, Diagnostic (ICD-10-PCS; 2017-04-15)
DX: I21.4 Non-ST elevation (NSTEMI) myocardial infarction (principal); J15.6 Pneumonia due to other Gram-negative bacteria; J13 Pneumonia due to Streptococcus pneumoniae; J98.11 Atelectasis; J44.0 Chronic obstructive pulmonary disease with (acute) lower respiratory infection; J44.1 Chronic obstructive pulmonary disease with (acute) exacerbation; E87.1 Hypo-osmolality and hyponatremia; I50.32 Chronic diastolic (congestive) heart failure; Z79.84 Long term (current) use of oral hypoglycemic drugs; Z00.6 Encounter for examination for normal comparison and control in clinical research program; E03.9 Hypothyroidism, unspecified; I25.10 Atherosclerotic heart disease of native coronary artery without angina pectoris; I48.0 Paroxysmal atrial fibrillation; N40.0 Benign prostatic hyperplasia without lower urinary tract symptoms; I11.0 Hypertensive heart disease with heart failure; E11.65 Type 2 diabetes mellitus with hyperglycemia; D64.9 Anemia, unspecified; Z95.5 Presence of coronary angioplasty implant and graft; Z87.891 Personal history of nicotine dependence

== ENCOUNTER 2017-05-11 20:06 | Inpatient (IN) | payer MEDICARE ==
[~2017-05-11] VITALS: Ht 185.4 cm; Wt 79.5 kg
--- NOTE | ~2017-05-11 | HEMODYNAMI ---
PATIENT:SALENA MCKEON MEDICAL RECORD: [id number] : 31 LOCATION:[facility] D.2308 ADMISSION DATE: 05/11/17 Generatedon:05/12/201712:38 Patient name: SALENA MCKEON Patient #: [id number] : 1935 Date of study: 05/12/2017 Page: Of Hemodynamic Procedure Report Patient Data Patient Demographics Procedure consent was obtained First Name: SALENA Gender: Male Last Name: LINDA : 1935 [facility] Initial: TAMIR Age: 81 year(s) Patient #: [id number] Race: Unknown SSN: [id number] Additional ID: [id number] Contact details Address: [place] [place] [address] State: [place] City: [place] Zip code: [address] Past Medical History Allergies: No known allergies Admission Admission Data Admission Date: 05/11/2017 Admission Time: 20:06 Room #: 1214 Procedure Procedure Types Cath Procedure Peripheral Cath Diagnostic Procedure Cath Peripheral Abd/Extremity Extremities Bilat Lower Extremity Procedure Description Procedure Date Procedure Date: 05/12/2017 Procedure Start Time: 11:16 Procedure Staff Name Function Wily Quinonez MD Performing Physician Deirdre Schultz RT Scrub June Lee RN Nurse Ev Guillen RT Monitor Ev Guillen RT Retaining Room Cutter Procedure Data Cath Procedure Fluoroscopy Diagnostic fluoroscopy Total fluoroscopy Time: 7.6 time: 7.6 min min Diagnostic fluoroscopy Total fluoroscopy dose: 72 dose: 72 mGy mGy Contrast Material Contrast Material Type Amount (ml) Isovue 300 40 Entry Location Entry Primary Successful Side Size Upsize Upsize Entry Closure Succes sful Closure Location (Fr) 1 (Fr) 2 (Fr) Remarks Device Remarks Femoral Right 5 Fr artery Diagnostic catheters Device Type Used For End Catheter Placement Merit ULTRA BOLUS FLUSH 5Fr 65CM catheter Procedure Medications Medication Administration Route Dosage Fentanyl I.V. 50 mcg TPA 2 mg Heparin Bolus 5000 units Hemodynamics Rest Heart Rate: 68 (bpm) Snapshots Pre Cath Intra NCS Post Cath Vital Signs Time Heart Resp SPO2 NIBP (mmHg) Rhythm Pain Sedation Rate (ipm) (%) Status Level (bpm) 11:03:17 62 24 98 95/50(76) NSR 0 (11) 10(A) , No pain 11:07:19 63 16 100 102/65(80) NSR 0 (11) 10(A) , No pain 11:11:25 58 15 100 103/60(80) NSR 0 (11) 10(A) , No pain 11:15:27 60 24 100 103/76(96) NSR 0 (11) 10(A) , No pain 11:19:37 70 15 100 98/55(72) NSR 0 (11) 10(A) , No pain 11:23:42 63 19 99 87/59(77) NSR 0 (11) 10(A) , No pain 11:27:40 67 14 98 104/66(81) NSR 0 (11) 10(A) , No pain 11:31:48 60 15 97 112/61(88) NSR 0 (11) 10(A) , No pain 11:36:00 73 15 95 113/55(108) NSR 0 (11) 10(A) , No pain 11:40:10 70 16 96 103/59(81) NSR 0 (11) 10(A) , No pain 11:44:17 68 17 97 101/61(83) NSR 0 (11) 10(A) , No pain 11:48:23 65 16 96 101/59(86) NSR 0 (11) 10(A) , No pain 11:52:31 64 20 96 107/56(80) NSR 0 (11) 10(A) , No pain 11:56:39 58 19 96 104/59(80) NSR 0 (11) 10(A) , No pain 12:00:47 60 21 97 102/59(83) NSR 0 (11) 10(A) , No pain 12:04:56 65 18 96 100/53(82) NSR 0 (11) 10(A) , No pain 12:09:04 61 14 97 105/57(86) NSR 0 (11) 10(A) , No pain 12:13:08 64 26 97 96/72(83) NSR 0 (11) 10(A) , No pain 12:17:10 75 17 98 110/66(83) NSR 0 (11) 10(A) , No pain 12:21:18 67 15 96 109/63(82) NSR 0 (11) 10(A) , No pain 12:25:23 55 18 97 113/67(94) NSR 0 (11) 10(A) , No pain 12:29:23 98 No Cuff NSR 0 (11) 10(A) , No pain 12:33:23 No Cuff NSR 0 (11) 10(A) , No pain 12:37:22 No Cuff NSR 0 (11) 10(A) , No pain Medications Time Medication Route Dose Verified Delivered Reason Notes Effectiven ess by by 11:25:04 Fentanyl I.V. 50 Juen June for mcg Rosa Lee sedation CAT SHELTON 11:38:52 TPA IA 2 mg June Wily Per Rosa Quinonez protocol; CAT BERRY added to field 11:45:34 Heparin ia 5000 June Wily Bolus units Rosa Quinonez RN, MD Procedure Log Time Note 10:49:47 Ev Guillen RT(R) sent for patient. Start room use. 10:49:49 Time tracking: Regular hours 10:49:55 Plan of Care:Hemodynamics will remain stable., Cardiac rhythm will remain stable., Comfort level will be maintained., Respiratory function will remain adequate., Patient/ family verbilizes understanding of procedure., Procedure tolerated without complication., Recovers from procedure without complications.. 10:58:16 Patient received from Other to IR Alert and oriented. Tansferred to table in Supine position. 10:58:19 Warm blankets applied, and miranda hugger turned on for patient comfort. 10:58:20 Correct patient and procedure confirmed by team. 10:58:23 Signed procedure consent form obtained from patient. 10:58:25 ECG and BP/O2 sat monitors applied to patient. 11:02:10 Vital chart was started 11:02:16 Baseline sample Acquired. 11:02:19 Full Disclosure recording started 11:02:19 - 11::27 H&P Date Dictated: 05/12/2017 Within 30 days and on chart.. 11:02:28 Pre-procedure instructions explained to patient. 11:02:29 Pre-op teaching completed and patient verbalized understanding. 11:02:31 Family unavailable. 11:02:35 Patient NPO since Midnight. 11:02:44 Is the patient allergic to Iodine/contrast media? No. 11:02:48 Is patient on blood thinner?Yes 11:03:01 Patient diabetic? Yes. 11:03:12 - 11:03:33 ----Pre-sedation anethsthesia assessment.---- 11:03:37 Previous problem with sedation/anesthesia? No ? 11:03:42 Snore? Yes 11:03:49 Sleep apnea? No 11:03:50 Deviated septum? No 11:03:52 Opens mouth fully? Yes 11:03:55 Sticks out tongue? Yes 11:04:09 Airway obstruction? Yes asthma,copd 11:04:15 Dentures? No ? 11:04:17 - 11:11:01 Use device set IR Diagnostic 11:11:03 Sterile Angiographic Pack opened to sterile field. 11:11:04 Bag Decanter opened to sterile field. 11:11:04 Acist Manifold opened to sterile field. 11:11:07 Acist Hand Control opened to sterile field. 11:11:08 Acist Syringe opened to sterile field. 11:11:25 Terumo 5Fr [place] Sheath opened to sterile field. 11:11:27 Cook DOC .035 guide wire opened to sterile field. 11:11:28 PERCUTANEOUS ENTRY 19GA needle opened to sterile field. 11:11:39 A [employer] ULTRA BOLUS FLUSH 5Fr 65CM catheter was advanced over the wire and used for . 11:12:39 IV patent on arrival in left forearm with 0.9% NaCl at [facility]. 11:13:00 Right groin area was prepped with chlora-prep and draped in sterile fashion 11:13:03 Left groin area was prepped with chlora-prep and draped in sterile fashion 11:13:09 Pre procedure: right dorsailis pedis pulse 0-Absent 11:13:13 Pre procedure: right posterior tibial pulse 0-Absent 11:13:20 Pre procedure: left dorsailis pedis pulse 1+ Palpable, but thready & weak; easily obliterated 11:13:32 Pre procedure: left posterior tibial pulse Doppler 11:13:40 Alarms reviewed by RThierry NThierry 11:13:41 Sharps counted by scrub and verified by R.N. 11:13:41 - 11:13:44 Physician arrived 11:14:04 Final Timeout: patient, procedure, and site verified with staff and physician. All members of the team are in agreement. 11:15:18 Sedation plan: IV Moderate Sedation Versed, Fentanyl 11:15:58 Physical assessment completed. ASA score P 3 - A patient with severe systemic disease as per Wily Quinonez MD. 11:16:11 Procedure started. 11:16:29 Local anesthetic to right femoral artery with Lidocaine 1% by Wily Quinonez MD.INITIAL ACCESS ONLY 11:20:39 Arterial access obtained using ultrasound guidance. 11::58 A 5 Fr sheath was inserted into the Right Femoral artery 11:25:04 Fentanyl 50 mcg I.V. was administered by June Lee RN; for sedation; 11:31:27 Terumo ANGLE 180L glide wire opened to sterile field. 11:31:28 Terumo 4FR Straight 65CM glide catheter opened to sterile field. 11:31:29 Terumo 4FR Straight 65CM glide catheter opened to sterile field. 11:31:30 Micropuncture VSI 4FR kit opened to sterile field. 11:31:43 TUBING, CONTRAST INJCTN HI PRES opened to sterile field. 11:31:44 Terumo TORQUE DEVICE PLASTIC .038 opened to sterile field. 11:38:52 TPA 2 mg IA was administered by Wily Quinonez MD; Per protocol; added to field; 11:44:12 VIPER .014 335 CM guide wire opened to sterile field. 11:44:24 [place] Sci TRANSEND STEERABLE guide wire opened to sterile field. 11:45:34 Heparin Bolus 5000 units ia was administered by Wily Quinonez MD; ; 11:46:28 CRAGG-AVELINO 10cm infusion catheter opened to sterile field. 11:55:54 Cook SALMERON 260 guide wire opened to sterile field. 12:14:13 Procedure ended.(Physican Out) 12:14:28 Fluoroscopy time 07.60 minutes. 12:14:51 Fluoroscopy dose: 72 mGy 12:14:51 Flurop Dose total: 72 12:14:56 Contrast amount:Isovue 300 40ml. 12:14:58 Sharps counted by scrub and verified by R.N. 12:14:59 Procedure and supply charges have been captured, reviewed, submitted an d are correct. 12:38:17 Vital chart was stopped Device Usage Item Name Manufacture Quantity Catalog Number Hospital Part Current Minimal Lot# / Charge Number Stock Stock Serial# Code Sterile Cardinal 1 [id number] 5 Angiographic Health Pack Bag Decanter Microtek 1 [id number] 70435 212623 5 Medical Inc. Acist Manifold Acist Medical 1 84857 671849 431925 848228 5 Systems Inc Acist Hand Acist Medical 1 63023 284572 155630 582967 5 Control Systems Inc Acist Syringe Acist Medical 1 76786 941505 170492 330988 20 Systems Inc Terumo 5Fr Terumo 1 QEQ518 335168 346729 077296 40 [place] Sheath Cook DOC .035 Cook Medical 1 O85254 360608 773593 5 [id number] guide wire PERCUTANEOUS Cook Medical 1 B09048 512292 991138 5 ENTRY 19GA needle Merit ULTRA [facility] Medical 1 [id number] 186546 226156 5 BOLUS FLUSH 5Fr 65CM catheter Terumo ANGLE Terumo 1 [id number] 622618 849033 645878 5 180L glide wire Terumo 4FR Terumo 2 CG412 432461 682387 5 Straight 65CM glide catheter Micropuncture VSI VASCULAR 1 7266V 283644 949916 5 VSI 4FR kit SOLUTIONS TUBING, [facility] Medical 1 [id number] 201416 634460 639084 5 CONTRAST INJCTN HI PRES Terumo TORQUE [place] 1 TD01 103344 387379 567878 5 DEVICE PLASTIC Scientific .038 VIPER .014 335 Cardiovascular 1 [facility]--FT14 776518 174965 5 CM guide wire systems [place] [employer] [place] 1 [id number] 533246 542967 5 TRANSCima [employer] STEERABLE guide wire REYANLDOGG-AVELINO Ev3 1 22148-36 800495 771799 5 10cm infusion catheter Cook SALMERON 260 [facility] 1 [id number] 901372 156698 5 [id number] guide wire Signature Audit [place] Stage Time Signature Unsigned Intra-Procedure 05/12/2017 Ev Guillen 12:38:14 PM RT(R) Signatures Monitor : Ev Guillen RT Signature : Date : Time : [facility] [address] [place] [address]
--- NOTE | ~2017-05-11 | HEMODYNAMI ---
PATIENT:SALENA MCKEON MEDICAL RECORD: [id number] : 31 LOCATION:[facility] D.2308 ADMISSION DATE: 05/11/17 Generatedon:05/13/201716:34 Patient name: SALENA MCKEON Patient #: [id number] : 1935 Date of study: 05/13/2017 Page: Of Hemodynamic Procedure Report Patient Data Patient Demographics Procedure consent was obtained First Name: SALENA Gender: Male Last Name: LINDA : 1935 [facility] Initial: TAMIR Age: 81 year(s) Patient #: [id number] Race: Unknown SSN: [id number] Additional ID: [id number] Contact details Address: [address] [address] State: [place] City: [place] Zip code: [address] Past Medical History Allergies: No known allergies Admission Admission Data Admission Date: 05/11/2017 Admission Time: 20:06 Room #: D.2308 Weight (lbs.): 166 Weight (kg.): 75.3 Procedure Procedure Types Cath Procedure Peripheral Cath Diagnostic Procedure Cath Peripheral Abd/Extremity Extremities Right Lower Ext Arterio Procedure Description Procedure Date Procedure Date: 05/13/2017 Procedure Start Time: 15:29 Procedure Staff Name Function Edil Carreno MD Performing Physician Deirdre Schultz RT Scrub June Lee RN Nurse Ev Guillen RT Hot Press Operator Ev Guillen RT Monitor Procedure Data Cath Procedure Fluoroscopy Diagnostic fluoroscopy Total fluoroscopy Time: 3.6 time: 3.6 min min Diagnostic fluoroscopy Total fluoroscopy dose: 134 dose: 134 mGy mGy Contrast Material Contrast Material Type Amount (ml) Isovue 300 40 Procedure Medications Medication Administration Route Dosage Fentanyl I.V. 50 mcg Versed I.V. 1 mg TPA 12.5 mg Heparin Drip 500 units/hr ([id number]/250 D5W) Hemodynamics Rest Heart Rate: 0 (bpm) Snapshots Pre Cath Intra NCS Post Cath Vital Signs Time Heart Resp SPO2 NIBP (mmHg) Rhythm Pain Sedation Rate (ipm) (%) Status Level (bpm) 15:09:22 66 22 97 129/80(116) NSR 0 (11) 10(A) , No pain 15:13:37 70 26 96 130/71(107) NSR 0 (11) 10(A) , No pain 15:17:45 66 35 96 143/96(114) NSR 0 (11) 10(A) , No pain 15:22:01 72 28 96 131/81(110) NSR 0 (11) 10(A) , No pain 15:27:00 64 25 97 Measuring NSR 0 (11) 10(A) , No pain 15:27:13 66 25 96 138/83(132) NSR 0 (11) 10(A) , No pain 15:31:24 76 20 96 140/92(109) NSR 0 (11) 10(A) , No pain 15:35:38 61 23 90 143/86(120) NSR 0 (11) 10(A) , No pain 15:39:52 69 19 94 138/95(120) NSR 0 (11) 10(A) , No pain 15:44:06 73 16 82 116/84(99) NSR 0 (11) 10(A) , No pain 15:48:16 81 21 94 111/73(103) NSR 0 (11) 10(A) , No pain 15:52:22 78 22 95 119/77(108) NSR 0 (11) 10(A) , No pain 15:56:30 83 35 95 121/77(103) NSR 0 (11) 10(A) , No pain 16:00:40 85 25 96 114/73(95) NSR 0 (11) 10(A) , No pain 16:04:48 78 27 96 122/75(105) NSR 0 (11) 10(A) , No pain 16:09:00 75 22 94 120/73(105) NSR 0 (11) 10(A) , No pain 16:13:05 79 29 94 120/85(106) NSR 0 (11) 10(A) , No pain 16:17:09 77 18 94 122/92(107) NSR 0 (11) 10(A) , No pain 16:21:17 82 17 94 131/83(126) NSR 0 (11) 10(A) , No pain 16:25:29 87 20 94 145/82(110) NSR 0 (11) 10(A) , No pain 16:29:43 93 21 90 135/88(104) NSR 0 (11) 10(A) , No pain 16:33:53 87 21 95 138/91(124) NSR 0 (11) 10(A) , No pain Medications Time Medication Route Dose Verified Delivered Reason Notes Ef fectiveness by by 15:30:03 Fentanyl I.V. 50 mcg June June for Rosa Rosa sedation RN RN 15:30:17 Versed I.V. 1 mg June June for Rosa Rosa sedation RN RN 16:32:11 TPA IA 12.5 mg June Edil infusion Rosa Carreno MD catheter RN 16:33:30 Heparin Drip IA 500 June Edil (16472mowmr/250 sheath units/hr Rosa Carreno MD D5W) professor of religious studies Log Time Note 15:07:18 Patient Weight : 166 kg 15:07:46 Time tracking: Regular hours 15:07:53 Plan of Care:Hemodynamics will remain stable., Cardiac rhythm will remain stable., Comfort level will be maintained., Respiratory function will remain adequate., Patient/ family verbilizes understanding of procedure., Procedure tolerated without complication., Recovers from procedure without complications.. 15:08:09 Patient received from ICU to IR Alert and oriented. Tansferred to table in Supine position. 15:08:12 Correct patient and procedure confirmed by team. 15:08:14 Signed procedure consent form obtained from patient. 15:08:15 ECG and BP/O2 sat monitors applied to patient. 15:08:16 Vital chart was started 15:08:18 Baseline sample Acquired. 15:08:19 Full Disclosure recording started 15:08:20 - 15:08:25 H&P Date Dictated: 05/13/2017 Within 30 days and on chart.. 15:08:27 Pre-procedure instructions explained to patient. 15:08:30 Family in waiting room. 15:08:32 Patient NPO since Midnight. 15:08:37 Is the patient allergic to Iodine/contrast media? No. 15:08:41 Is patient on blood thinner?Yes 15:08:48 ----Pre-sedation anethsthesia assessment.---- 15:08:51 Previous problem with sedation/anesthesia? No ? 15:08:56 Snore? No 15:08:58 Sleep apnea? No 15:09:00 Deviated septum? No 15:09:02 Opens mouth fully? Yes 15:09:04 Sticks out tongue? Yes 15:09:10 Airway obstruction? Yes asthma 15:09:16 Dentures? No ? 15:09:19 - 15:09:47 Pre procedure: left dorsailis pedis pulse Doppler 15:09:51 Pre procedure: right posterior tibial pulse Doppler 15:09:56 Pre procedure: left posterior tibial pulse Doppler 15:10:11 IV patent on arrival in left forearm with 0.9% NaCl at KVO. 15:10:19 Right groin area was prepped with betadine and draped in sterile aminatahio n 15:10:22 Alarms reviewed by Rohit Leos 15:10:23 Sharps counted by scrub and verified by Angela 15:10:23 - 15:12:25 Use device set IR Diagnostic 15:12:27 Sterile Angiographic Pack opened to sterile field. 15:12:28 Bag Decanter opened to sterile field. 15:16:11 Pre procedure: right dorsailis pedis pulse 2+ Palpable, but thready & weak; easily obliterated 15:17:18 Pre procedure: right posterior tibial pulse 2+ Normal; easily identifiable; not easily obliterated 15::25 Physician arrived :: --------ALL STOP TIME OUT------ 15::48 Final Timeout: patient, procedure, and site verified with staff and physician. All members of the team are in agreement. 15:: Physical assessment completed. ASA score P 3 - A patient with severe systemic disease as per Edil Carreno MD. 15:: Sedation plan: IV Moderate Sedation Versed, Fentanyl 15:29:03 Procedure started. 15::07 Local anesthetic to right femoral artery with Lidocaine 1% by Edil Carreno MD.INITIAL ACCESS ONLY 15:30:03 Fentanyl 50 mcg I.V. was administered by June Lee RN; for sedation; 15::17 Versed 1 mg I.V. was administered by June Lee RN; for sedation; 15:37:30 Cook SALMERON 260 guide wire opened to sterile field. 15:38:37 BasixTOUCH Inflation Syringe opened to sterile field. 15:42:09 Inflation number: 1 A Cordis Powerflex Pro 4.0 x 40 x 135cm balloon was prepped and advanced across the Undefined1, then inflated to 18 LILA for 0:12 (min:sec). 15::47 Inflation number: 2 A IN.PACT Admiral 5.0 x 80 x 135 DCB Balloon was prepped and advanced across the Undefined1, then inflated to 12 LILA for 2:57 (min:sec). 15:57:10 Terumo 5FR ANGLED 65CM glide catheter opened to sterile field. 16:19:28 CRAGG-AVELINO 30cm infusion catheter opened to sterile field. 16:19:38 Terumo ANGLE 260cm glide wire opened to sterile field. 16:26:22 Procedure ended.(Physican Out) ::57 Fluoroscopy time 03.60 minutes. 16:27:06 Fluoroscopy dose: 134 mGy 16:27:06 Flurop Dose total: 134 16:27:25 Contrast amount:Isovue 300 40ml. 16:27:30 Procedure and supply charges have been captured, reviewed, submitted an d are correct. 16:32:11 TPA 12.5 mg IA infusion catheter was administered by Edil Carreno MD; ; 16:33:30 Heparin Drip ([id number]/250 D5W) 500 units/hr IA sheath was administered by Edil Carreno MD; ; 16:34:21 Vital chart was stopped Intervention Summary Intervention Notes Time ActionType Lesion and Equipment Action# Pressure Duration Attributes Used 15:42:09 Inflate Undefined1 Cordis 1 18 00:12 balloon Powerflex Pro 4.0 x 40 x 135cm balloon 15:52:47 Inflate Undefined1 IN.PACT 2 12 02:57 balloon Admiral 5.0 x 80 x 135 DCB Balloon Device Usage Item Name Manufacture Quantity Catalog Hospital Part Current Min imal Lot# / Number Charge Number Stock Stock Serial# Code Sterile Cardinal 1 [id number] [id number] 5 Angiographic Health Pack Bag Decanter Microtek 1 [id number] 46169 117216 5 Medical Inc. Cook SALMERON 260 [place] [employer] 1 [id number] 905493 923612 5 [id number] guide wire Cordis Cardinal 1 [id number] 592785 095410 5 Powerflex Pro Health 4.0 x 40 x 135cm balloon IN.PACT Medtronic 1 [id number] 383994 106391 5 [id number] Admiral 5.0 x 80 x 135 DCB Balloon Terumo 5FR Terumo 1 [id number] 724590 845940 5 ANGLED 65CM glide catheter [facility] 1 [id number] 280643 634772 366854 5 Inflation Medical Syringe PARAMJIT-AVELINO Ev3 1 66938-54 367862 714190 5 30cm infusion catheter Terumo ANGLE Terumo 1 [id number] 859686 532855 568827 5 260cm glide wire Signature Audit [place] Stage Time Signature Unsigned Intra-Procedure 05/13/2017 Ev Guillen 4:34:19 PM RT(R) Signatures Monitor : Ev Guillen RT Signature : Date : Time : [facility] [address] [facility] [place] [address]
--- NOTE | ~2017-05-11 | HEMODYNAMI ---
PATIENT:SALENA MCKEON MEDICAL RECORD: [id number] : 31 LOCATION:[facility] D.2308 ADMISSION DATE: 05/11/17 Generatedon:05/14/201713:42 Patient name: SALENA MCKEON Patient #: [id number] : 1935 Date of study: 05/14/2017 Page: Of Hemodynamic Procedure Report Patient Data Patient Demographics Procedure consent was obtained First Name: SALENA Gender: Male Last Name: LINDA : 1935 [facility] Initial: TAMIR Age: 81 year(s) Patient #: [id number] Race: Unknown SSN: [id number] Additional ID: [id number] Contact details Address: [place] [address] [address] State: [place] City: [place] Zip code: [address] Past Medical History Allergies: No known allergies Admission Admission Data Admission Date: 05/11/2017 Admission Time: 20:06 Room #: D.2308 Weight (lbs.): 174 Weight (kg.): 78.93 Procedure Procedure Types Cath Procedure Peripheral Cath Diagnostic Procedure Cath Peripheral Abd/Extremity Extremities Right Lower Ext Arterio Procedure Description Procedure Date Procedure Date: 05/14/2017 Procedure Start Time: 13:20 Procedure Staff Name Function Pankaj Beltre MD Performing Physician Deirdre Schultz RT Scrub June Lee RN Nurse Ev Guillen RT Application Support Manager Ev Guillen RT Monitor Procedure Data Cath Procedure Entry Location Entry Primary Successful Side Size Upsize Upsize Entry Closure Succes sful Closure Location (Fr) 1 (Fr) 2 (Fr) Remarks Device Remarks Femoral Right Exoseal artery Hemodynamics Rest Heart Rate: 69 (bpm) Snapshots Pre Cath Intra NCS Post Cath Vital Signs Time Heart Resp SPO2 NIBP (mmHg) Rhythm Pain Sedation Rate (ipm) (%) Status Level (bpm) 13:03:18 74 21 96 121/76(97) NSR 0 (11) 10(A) , No pain 13:07:33 74 30 97 130/76(110) NSR 0 (11) 10(A) , No pain 13:11:52 74 19 97 116/74(102) NSR 0 (11) 10(A) , No pain 13:16:08 82 21 97 123/67(108) NSR 0 (11) 10(A) , No pain 13:20:26 76 26 94 124/67(96) NSR 0 (11) 10(A) , No pain 13:24:34 73 19 97 121/88(100) NSR 0 (11) 10(A) , No pain 13:28:41 69 23 96 117/76(94) NSR 0 (11) 10(A) , No pain 13:32:55 72 22 97 123/64(104) NSR 0 (11) 10(A) , No pain 13:37:11 68 24 96 118/68(99) NSR 0 (11) 10(A) , No pain 13:41:19 68 24 97 112/72(94) NSR 0 (11) 10(A) , No pain Procedure Log Time Note 12:20:35 Patient Weight : 174 kg 13:01:41 Time tracking: Regular hours 13:01:53 Plan of Care:Hemodynamics will remain stable., Cardiac rhythm will remain stable., Comfort level will be maintained., Respiratory function will remain adequate., Patient/ family verbilizes understanding of procedure., Procedure tolerated without complication., Recovers from procedure without complications.. 13:02:00 Patient received from ICU to IR Alert and oriented. Tansferred to table in Supine position. 13:02:02 Correct patient and procedure confirmed by team. 13:02:05 Signed procedure consent form obtained from patient. 13:02:06 ECG and BP/O2 sat monitors applied to patient. 13:02:07 Vital chart was started 13:02:09 Baseline sample Acquired. 13:02:10 Full Disclosure recording started 13:02:11 - 13:02:18 H&P Date Dictated: 05/14/2017 Within 30 days and on chart.. 13:02:20 Pre-procedure instructions explained to patient. 13:02:21 Pre-op teaching completed and patient verbalized understanding. 13:02:23 Family in waiting room. 13:02:27 Patient NPO since Midnight. 13:02:40 Is the patient allergic to Iodine/contrast media? No. 13:02:43 Is the patient allergic to Iodine/contrast media? No. 13:02:46 Is patient on blood thinner?Yes 13:02:49 Patient diabetic? No. 13:02:52 - 13:02:53 ----Pre-sedation anethsthesia assessment.---- 13:02:57 Previous problem with sedation/anesthesia? No ? 13:03:01 Snore? Yes 13:03:03 Sleep apnea? No 13:03:05 Deviated septum? No 13:03:08 Opens mouth fully? Yes 13:03:10 Sticks out tongue? Yes 13:03:16 Airway obstruction? Yes asthma 13:03:20 Dentures? No ? 13:03:22 - 13:03:54 Pre procedure: right dorsailis pedis pulse 1+ Palpable, but thready & weak; easily obliterated 13:04:00 Pre procedure: right posterior tibial pulse 2+ Normal; easily identifiable; not easily obliterated 13:04:12 IV patent on arrival in left forearm with 0.9% NaCl at O. 13:04:20 Right groin area was prepped with betadine and draped in sterile brina n 13:04:21 Alarms reviewed by Rohit Leos 13:04:22 Sharps counted by scrub and verified by Angela 13:04:23 - 13:04:32 Use device set IR Diagnostic 13:04:33 Sterile Angiographic Pack opened to sterile field. 13:04:35 Bag Decanter opened to sterile field. 13:18:45 Physician arrived 13:19:25 --------ALL STOP TIME OUT------ 13:19:26 Final Timeout: patient, procedure, and site verified with staff and physician. All members of the team are in agreement. 13:19:54 Physical assessment completed. ASA score P 3 - A patient with severe systemic disease as per Pankaj Beltre MD. 13:20:52 Procedure started. 13:24:38 Cook Bentson 260cm 0.035 guide wire opened to sterile field. 13:26:05 Angiography was performed. 13:36:37 St Tino 6Fr sheath opened to sterile field. 13:36:38 Cordis 6Fr Exoseal opened to sterile field. 13:38:50 A sheath was inserted into the Right Femoral artery 13:38:50 Sheath removed intact; hemostasis achieved with Exoseal to the Right Femoral artery. 13:38:56 Procedure and supply charges have been captured, reviewed, submitted an d are correct. 13:40:55 Procedure ended.(Physican Out) 13:42:56 Vital chart was stopped Device Usage Item Name Manufacture Quantity Catalog Hospital Part Current Minimal Lot# / Number Charge Number Stock Stock Serial# Code Sterile Cardinal 1 [id number] [id number] 5 Angiographic Health Pack Bag Decanter Microtek 1 [id number] 12999 995554 5 In[employer] Inc. Cook Bliipsson etechies.in Medical 1 [id number] 776073 [id number] 4 [id number] 260cm 0.[address] Tino [address] St Tino 1 [id number] 253611 587249 5 [id number] sheath Cordis 6Fr Cardinal 1 [id number] [id number] 093655 10 Exoseal Health Signature Audit [place] Stage Time Signature Unsigned Intra-Procedure 05/14/2017 vE Guillen 1:42:53 PM RT(R) Signatures Monitor : Ev Guillen RT Signature : Date : Time : [address] [address] [place] [address]
[~2017-05-11 20:06] MED LIST changes: +BENZONATATE200 MG PO; +CELEXA10 MG PO; +FLORAJEN3 CAPS460 MG PO; +FUROSEMIDE20 MG PO; +GLIMEPIRIDE2 MG PO; +Levaquin PO; +PREDNISONE10 MG PO
--- NOTE | 2017-05-11 20:30 | NUR ---
RECEIVED PT VIA FROM ADMISSIONS, PT TO ROOM 1219, PT TRANSFERS SELF TO BED WITH NO DIFFICULTY, FAMILY IN ROOM TO HELP PT CHANGE INTO OWN PAJAMAS, PT ORIENTED TO ROOM, BED IN LOW POSITION, SIDE RAILS X 2, CALL LIGHT IN REACH
--- NOTE | 2017-05-11 20:41 | NUR ---
ADMITTIONS HISTORY AND ASSESSMENT STARTED
[2017-05-11] MEDS ORDERED: VITAMIN D3400 UNI1 PO (20:51)
[2017-05-11 21:04] VITALS: BP 116/64; BMI 23.1
--- NOTE | 2017-05-11 21:30 | NUR ---
ADMISSION HISTORY AND ASSESSMENT COMPLETED, IV STARTED IN LEFT WRIST, FIRST ATTEMPT, FLUSHED WITH 10 MLS OF NS WITH NO DIFFICULTY, SALINE LOCKED, PT INFORMED THAT X-RAY WILL BE DOWN TO TAKE PT UP TO RADIOLOGY, PT VERBALIZES UNDERSTANDING
--- NOTE | 2017-05-11 21:45 | NUR ---
LAB TO ROOM FOR BLOOD DRAW
--- NOTE | 2017-05-11 21:49 | NUR ---
PT TO RADIOLOGY FOR CTA VIA WC
[2017-05-11 22:01] LABS: BASOPHILS 0.1 % (0-2); EOSINOPHILS 1.3 % (0-7); HEMATOCRIT 40.7 % (42.0-54.0); HEMOGLOBIN 13.4 g/dL (13.5-17.5); IMMATURE GRANULOCYTES 0.2 % (0-5); LYMPHOCYTES 7.5 % (15-50); MCH 30.8 pg (26.0-34.0); MCHC 32.9 g/dL (31.0-37.0); MCV 93.6 fL (80.0-100.0); MEAN PLATELET VOLUME 11.4 fL (7.4-10.4); MONOCYTES 7.2 % (2-11); NEUTROPHILS 83.7 % (40-80); RBC 4.35 10x6/uL (4.20-6.10); RDW 15.1 % (11.5-14.5); WBC 9.2 10x3/uL (4.8-10.8)
[2017-05-11 22:02] LABS: PLATELET COUNT 135 10x3/uL (130-400)
[2017-05-11 22:15] LABS: ALBUMIN 3.1 g/dL (3.4-5.0); BILIRUBIN - TOTAL 0.71 mg/dL (0.2-1.3); CALCIUM 9.2 mg/dL (8.5-10.1); CARBON DIOXIDE 25.4 mmol/L (21.0-32.0); CREATININE - SERUM 1.3 mg/dL (0.6-1.3); POTASSIUM - SERUM 4.4 mmol/L (3.5-5.1)
--- NOTE | 2017-05-11 22:15 | NUR ---
PT BACK TO ROOM PER RADIOLOGY
[2017-05-11 22:17] LABS: DIGOXIN 0.95 ng/mL (0.90-2.00)
--- NOTE | 2017-05-11 22:18 | NUR ---
PT SITTING ON SIDE OF BED, REQUESTED AND SERVED SANDWICH TRAY AND 2% MILK, DENIES FURTHER NEEDS
--- NOTE | 2017-05-11 22:38 | NUR ---
SALINE LOCK CONVERTED TO IV, ROSENDO YA INFUSING VIA PUMP AT 100 ML/HR, KYAW GRACE RN, THERMAL CUTTING TRACER MACHINE OPERATOR, WILL COME TO UNIT TO ASSIST WITH HEPARIN DRIP
[2017-05-12] VITALS (24 sets, daily range): BP systolic 89–142; BP diastolic 7–93; Ht 185.4 cm; Wt 79.5 kg
--- NOTE | 2017-05-12 00:02 | NUR ---
THIS RN AND KYAW GRACE, TIMEKEEPER INITIATED HEPARIN BOLUS AND HEPARIN DRIP, SEE EMAR, VS OBTAINED, PT INST ON NPO AND USING URINAL FOR URINE COLLECTION FOR LAB, PT VERBALIZES UNDERSTANDING, DENIES NEEDS OR QUESTIONS AT THIS TIME
--- NOTE | 2017-05-12 02:23 | NUR ---
PT RESTING WITH EYES CLOSED, RESP QUIET, NO DISTRESS NOTED, LEFT UNDISTURBED AT THIS TIME
--- NOTE | 2017-05-12 04:50 | NUR ---
PT RESTING WITH EYES CLOSED, AROUSES TO SOFT VERBAL STIMULATION, VS OBTAINED, I&O'S COLLECTED, PT REPORTS VOIDING 2 MORE TIMES AND HAVING ANOTHER BM, PT REPORTS USING URINAL ABOUT 2-3 HOURS AGO, INST PT TO CALL WHEN VOIDS AT THAT TIME, PT VERBALIZES UNDERSTANDING, RIGHT PEDAL AND POPLITEAL PULSE NOTED TO BE WEAK, PT REQUESTED AND PROVIDED BLUE SKID SOCKS, PT DENIES FURTHER NEEDS
--- NOTE | 2017-05-12 05:59 | NUR ---
ORDER FAXED TO IR PER REQUEST
--- NOTE | 2017-05-12 06:25 | NUR ---
PT RESTING WITH EYES CLOSED, RESP QUIET, NO DISTRESS NOTED, LEFT UNDISTURBED AT THIS TIME
--- NOTE | 2017-05-12 07:15 | NUR ---
SHIFT REPORT TO HEMAL YANES RN
[2017-05-12 07:23] LABS: ANION GAP 11.2 mmol/L (8-16); CALCIUM 8.6 mg/dL (8.5-10.1); CARBON DIOXIDE 27.2 mmol/L (21.0-32.0); CREATININE - SERUM 1.4 mg/dL (0.6-1.3); POTASSIUM - SERUM 4.4 mmol/L (3.5-5.1)
--- NOTE | 2017-05-12 08:30 | HP ---
PATIENT: SALENA ERVIN MEDICAL RECORD: [id number] ACCOUNT: [id number] [facility] [birth year] ADMISSION DATE: 05/11/17 HISTORY AND PHYSICAL EXAMINATION HISTORY OF PRESENT ILLNESS: Mr. Ervin is a pleasant 81-year-old white male that presents to the office today with a cold foot, has been going on for a couple of days. No pain at rest, but he has pain any time he walks. The pain is localized to the lower calf. He has got some mottling of the foot. He has nonpalpable DP and posterior tibial pulses in the right leg. He does have palpable pulses on the left. He has a known history of vascular disease, had a stent a few weeks ago by the manager zone. He does have some chronic renal insufficiency, as he discussed earlier today with Dr. Carreno. He is being admitted. We will get a CTA and start him on a heparin drip. PAST MEDICAL HISTORY: Significant for atrial fibrillation, DVT, hyperlipidemia, hypertension, chronic bronchitis with chronic right pleural effusion, type 2 diabetes, hypothyroidism, migraines, lupus, chronic renal insufficiency. PREVIOUS SURGERIES: Include appendectomy, right hip replacement, skin cancer removal, PTCA most recent 2016, knee surgery, SITS rotator cuff, EVIE in March 2013 with subsequent ablation. ALLERGIES OR INTOLERANCES: INCLUDE AMIODARONE, VYTORIN ____. HOME MEDICATIONS: At this time, include glimepiride 2 mg q. daily, Flomax 0.4 q. daily, day, citalopram 10 mg a day, DuoNeb updrafts, levothyroxine 0.125 q. daily, Januvia 50 mg a day, furosemide 20 mg p.r.n., digoxin 1.25 mcg daily, Advair Diskus 250/50 one puff b.i.d. FAMILY HISTORY: Noncontributory. 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 His last year. He does not smoke. He does not drink. REVIEW OF SYSTEMS: He has had some slow gradual weight loss with some illnesses, recently has not gained much back. He has had some recent chest pain. He has chronic shortness of breath, which has been stable. He denies any abdominal symptoms at this time, complains of right cold foot with pain with ambulation. No pain at rest. PHYSICAL EXAMINATION: GENERAL: He is in no distress at this time, well kept. HEENT: Sclerae nonicteric. Mucous membranes are moist. HEART: Regular. LUNGS: Clear. ABDOMEN: Soft. EXTREMITIES: Right foot is mottled, unable to palpate DP or posterior tib pulses. Left foot color is better, both are cool, but cooler on the right. He does have palpable pulses on the left. IMPRESSION: 1. Cool right foot with nonpalpable pulses and color changes, rather abrupt onset. 2. Vascular disease with known coronary artery disease with recent PTCA, HISTORY AND PHYSICAL [id number] SALENA ERVIN intermittent atrial fibrillation, diabetes, chronic renal insufficiency stage III, chronic bronchitis, benign prostatic hypertrophy, history of deep venous thrombosis, hypertension, hyperlipidemia, hypothyroidism. PLAN: Admit, start IV fluids with hydration, get a CTA tonight, recheck BMP in a.m. Discussed with Dr. Carreno. Start heparin drip. We will need a sliding scale to manage sugars. See orders for rest of plan. TRANSINT:[id number] Voice Confirmation ID: [id number] DOCUMENT ID: [id number] OLY GALLEGOS DO at 0830 CC: [id number] DICTATION DATE: 05/11/171916 CASH GRAIN GROWER: 05/11/172112 ADM IN [facility] [address] [place] [address]
[2017-05-12 08:43] LABS: INR 1.13 (0.85-1.17); PROTIME 14.3 SECONDS (11.6-15.0)
--- NOTE | 2017-05-12 10:55 | NUR ---
PATIENT OFF THE UNIT WITH X-RAY SPECIALS. HE WENT IN HIS BED WITH IV MEDICATIONS/PUMP.
[2017-05-12 12:26] LABS: APPEARANCE CLEAR (CLEAR); BILIRUBIN NEGATIVE (NEGATIVE); COLOR YELLOW (YELLOW); GLUCOSE NEGATIVE (NEGATIVE); KETONE NEGATIVE (NEGATIVE); LEUKOCYTE ESTERASE NEGATIVE (NEGATIVE); NITRITE NEGATIVE (NEGATIVE); PROTEIN NEGATIVE (NEGATIVE); UROBILINOGEN NORMAL (NORMAL)
--- NOTE | 2017-05-12 12:45 | NUR ---
ID NURSE MAGGI HARE RN HERE TO ASSESS THE PATIENT'S RASH. SHE CONFIRMS THAT THE BLISTERS ARE DRY. SHE DELIVERED A SHINGLES ISOLATION FLOWSHEET THAT CONFIRMS THE NURSE NEEDS TO USE SANDARD PRECAUTIONS WHEN PROVIDING HIS CARE. REMOVED THE AIRBORNE ISOLATION PRECAUTION
--- NOTE | 2017-05-12 12:51 | NUR ---
PT ARRIVED TO UNIT ALERT AND ORIENTED, RESPIRAITONS EVEN AND UJNLABORED, PIV TO LEFT ARM, DRESSING TO RIGHT GROIN INTACT, HEPARIN AND TPA INFUSING TO RIGHT GROIN, NO SIGNS OF BLEEDING, FLAT IN BED, RIGHT PEDAL PULSE FOUND WITH DOPPLER, DENIES PAIN, WILL CONTIUE TO MONITOR
[2017-05-12 13:51] LABS: BASOPHILS 0.1 % (0-2); EOSINOPHILS 1.4 % (0-7); HEMATOCRIT 37.6 % (42.0-54.0); HEMOGLOBIN 12.4 g/dL (13.5-17.5); IMMATURE GRANULOCYTES 0.4 % (0-5); LYMPHOCYTES 8.8 % (15-50); MCH 30.8 pg (26.0-34.0); MCV 93.3 fL (80.0-100.0); MEAN PLATELET VOLUME 10.8 fL (7.4-10.4); NEUTROPHILS 82.3 % (40-80); PLATELET COUNT 117 10x3/uL (130-400); RBC 4.03 10x6/uL (4.20-6.10); RDW 15.4 % (11.5-14.5); WBC 7.1 10x3/uL (4.8-10.8)
--- NOTE | 2017-05-12 15:00 | NUR ---
PT DENIES PAIN, LEGS REMAIN STRAIGHT AND FLAT, DRESSING TO RIGHT FEMORAL CDI, VSS, WILL CONTINUE TO MONITOR
[2017-05-12 15:31] LABS: INR 1.19 (0.85-1.17)
[2017-05-12 15:32] LABS: APTT 106.9 SECONDS (22.8-39.4)
--- NOTE | 2017-05-12 17:02 | NUR ---
PT ALERT, RESPIRATIONS EVEN AND UNLABORED, DRESSING TO RIGHT FEMEROL CDI, DENIES PAIN, NO SIGNS OF BLEEDING, VSS, WILL CONTIUE TO MONITOR
[2017-05-12 18:28] LABS: BASOPHILS 0.3 % (0-2); EOSINOPHILS 1.1 % (0-7); HEMATOCRIT 40.5 % (42.0-54.0); HEMOGLOBIN 13.2 g/dL (13.5-17.5); IMMATURE GRANULOCYTES 0.3 % (0-5); LYMPHOCYTES 10.2 % (15-50); MCH 30.8 pg (26.0-34.0); MCHC 32.6 g/dL (31.0-37.0); MCV 94.6 fL (80.0-100.0); MEAN PLATELET VOLUME 11.5 fL (7.4-10.4); NEUTROPHILS 81.1 % (40-80); PLATELET COUNT 126 10x3/uL (130-400); RBC 4.28 10x6/uL (4.20-6.10); RDW 15.6 % (11.5-14.5); WBC 6.2 10x3/uL (4.8-10.8)
--- NOTE | 2017-05-12 19:30 | NUR ---
ASSESSMENT COMPLETE. S1S2. RR UNLABORED. WHEEZE ON NOTED BILATERALLY IN UPPER LOBES; DIMINISHED BILATERALLY IN LOWER LOBES. SHEATH TO RT FEMORAL. CONTROLLED AFIB SHOWING ON MONITOR. ON ROOM AIR. URINAL AT BEDSIDE. BLOODY DRESSING TO RT WRIST. SCABS/SORES TO CHEST. AAO. PERRLA.
[2017-05-12 19:34] LABS: INR 1.08 (0.85-1.17); PROTIME 13.9 SECONDS (11.6-15.0)
[2017-05-12 19:36] LABS: APTT 48.5 SECONDS (22.8-39.4)
--- NOTE | 2017-05-12 20:30 | NUR ---
ASSISTED PT TO BEDPAN; NO BM; JUST FLATULANCE.
--- NOTE | 2017-05-12 21:00 | NUR ---
NO FAMILY DURING VISITATION.
--- NOTE | 2017-05-12 22:12 | NUR ---
PT WRIST ABRASION BLEEDING; DRESSING REINFORCED.
--- NOTE | 2017-05-12 23:00 | NUR ---
REASSESSMENT COMPLETE. NO CHANGES FROM PREVIOUS ASSESSMENT. WILL CONTINUE TO MONITOR. DENIES ANY NEEDS AT THIS TIME.
[2017-05-13] VITALS (22 sets, daily range): BP systolic 98–149; BP diastolic 56–107
[2017-05-13 00:36] LABS: HEMATOCRIT 36.3 % (42.0-54.0); HEMOGLOBIN 11.9 g/dL (13.5-17.5); LYMPHOCYTES 10.9 % (15-50); MCHC 32.8 g/dL (31.0-37.0); MEAN PLATELET VOLUME 10.2 fL (7.4-10.4); NEUTROPHILS 84.2 % (40-80); PLATELET COUNT 114 10x3/uL (130-400); RBC 3.97 10x6/uL (4.20-6.10); RDW 15.8 % (11.5-14.5); WBC 6.6 10x3/uL (4.8-10.8)
[2017-05-13 00:37] LABS: MCV 91.4 fL (80.0-100.0)
[2017-05-13 00:52] LABS: INR 1.09 (0.85-1.17)
[2017-05-13 00:55] LABS: APTT 37.6 SECONDS (22.8-39.4)
--- NOTE | 2017-05-13 01:25 | NUR ---
PT REPOSITIONED FOR COMFORT. DENIES ANY FURTHER NEEDS AT THIS TIME.
--- NOTE | 2017-05-13 03:15 | NUR ---
REASSESSMENT COMPLETE. NO CHANGES FROM PREVIOUS ASSESSMENT. VSS. NO DISTRESS NOTED. DENIES ANY FURTHER NEEDS AT THIS TIME. REPOSITIONED FOR COMFORT.
--- NOTE | 2017-05-13 04:00 | NUR ---
I/O COLLECTED. IV PUMPS CLEARED. URINAL EMPTIED.
[2017-05-13 06:45] LABS: BASOPHILS 0.2 % (0-2); HEMATOCRIT 39.2 % (42.0-54.0); HEMOGLOBIN 12.8 g/dL (13.5-17.5); IMMATURE GRANULOCYTES 0.3 % (0-5); LYMPHOCYTES 10.4 % (15-50); MCH 30.7 pg (26.0-34.0); MCHC 32.7 g/dL (31.0-37.0); MEAN PLATELET VOLUME 10.6 fL (7.4-10.4); NEUTROPHILS 82.1 % (40-80); PLATELET COUNT 120 10x3/uL (130-400); RBC 4.17 10x6/uL (4.20-6.10); RDW 15.7 % (11.5-14.5); WBC 6.2 10x3/uL (4.8-10.8)
[2017-05-13 06:53] LABS: APTT 35.2 SECONDS (22.8-39.4); INR 1.11 (0.85-1.17); PROTIME 14.2 SECONDS (11.6-15.0)
[2017-05-13 07:05] LABS: ANION GAP 12.3 mmol/L (8-16); CALCIUM 8.4 mg/dL (8.5-10.1); CARBON DIOXIDE 25.2 mmol/L (21.0-32.0); CREATININE - SERUM 1.3 mg/dL (0.6-1.3); POTASSIUM - SERUM 4.5 mmol/L (3.5-5.1)
--- NOTE | 2017-05-13 07:15 | NUR ---
REPORT RECIEVED FROM EPIC ANALYST NURSE. PT RESTING IN BED QUIETLY. NO S/SX OF ACUTE DISTRESS NOTED AT THIS TIME. FULL ASSESSMENT COMPLETE PER FLOWSHEET. SHEATH TO R GROIN. DRESSING INTACT. DOPPLERABLE PULSES FOUND EASILY. CALL LIGHT IN REACH. BED IN LOW POSITION. WILL CONT TO ASSESS FOR CHANGES.
--- NOTE | 2017-05-13 08:15 | NUR ---
ASSISTED ON BED GARCIA. HAD SMALL FORMED BM. PARTIAL LINEN CHANGE COMPLETE.
--- NOTE | 2017-05-13 09:00 | NUR ---
FAMILY AT BEDSIDE. UPDATE PROVIDED.
--- NOTE | 2017-05-13 09:50 | NUR ---
NUTRITION MONITORING & EVAL CHART REVIEWED. PT CURRENTLY NPO. WILL PROVIDE DIET WHEN RESUMED, MONITOR PO INTAKE. RD FOLLOWING
--- NOTE | 2017-05-13 11:00 | NUR ---
PT ALERT, DENIES ALL NEEDS, REPOSITIONED, WILL CONTINUE TO MONITOR
[2017-05-13 12:36] LABS: BASOPHILS 0.2 % (0-2); EOSINOPHILS 0.6 % (0-7); HEMATOCRIT 37.7 % (42.0-54.0); HEMOGLOBIN 12.2 g/dL (13.5-17.5); IMMATURE GRANULOCYTES 0.3 % (0-5); LYMPHOCYTES 6.8 % (15-50); MCH 30.4 pg (26.0-34.0); MCHC 32.4 g/dL (31.0-37.0); MEAN PLATELET VOLUME 10.5 fL (7.4-10.4); MONOCYTES 6.2 % (2-11); NEUTROPHILS 85.9 % (40-80); PLATELET COUNT 118 10x3/uL (130-400); RBC 4.01 10x6/uL (4.20-6.10); RDW 15.7 % (11.5-14.5); WBC 6.5 10x3/uL (4.8-10.8)
[2017-05-13 12:46] LABS: INR 1.19 (0.85-1.17)
[2017-05-13 12:47] LABS: APTT 36.1 SECONDS (22.8-39.4)
--- NOTE | 2017-05-13 13:04 | NUR ---
PT ALERT, VSS, REPOSITIONED, DENIES ALL NEED WILL CONTINUE TO MONITOR
--- NOTE | 2017-05-13 14:31 | NUR ---
PT GOING TO IR AT THIS TIME, FAMILY AWARE AND IN WAITING ROOM
--- NOTE | 2017-05-13 17:00 | NUR ---
PT RETURNED FROM IR AT THIS TIME ALTEPLASE AND HEPARIN INFUSING TO RIGHT FEMORAL SHEATH, DRESSING CDI, PIV TO LEFT FOREARM OOZING SMALL AMOUNT OF BLOOD, KERLEX APPLIED, LINEN CHANGED, PULSES PALPABLE, FAINT TO RLE, RLE STRAIGHT AND PT FLAT IN BED, DENIES PAIN AT THIS TIME, FAMILY AT BEDSIDE VSS WILL CONTINNUE TO MONITOR
[2017-05-13 18:10] LABS: BASOPHILS 0.1 % (0-2); EOSINOPHILS 0.6 % (0-7); HEMATOCRIT 38.5 % (42.0-54.0); HEMOGLOBIN 12.4 g/dL (13.5-17.5); IMMATURE GRANULOCYTES 0.7 % (0-5); LYMPHOCYTES 8.2 % (15-50); MCH 30.7 pg (26.0-34.0); MCHC 32.2 g/dL (31.0-37.0); MCV 95.3 fL (80.0-100.0); MEAN PLATELET VOLUME 10.7 fL (7.4-10.4); MONOCYTES 6.2 % (2-11); NEUTROPHILS 84.2 % (40-80); PLATELET COUNT 121 10x3/uL (130-400); RBC 4.04 10x6/uL (4.20-6.10); RDW 15.9 % (11.5-14.5); WBC 6.7 10x3/uL (4.8-10.8)
[2017-05-13 18:37] LABS: INR 1.23 (0.85-1.17); PROTIME 15.4 SECONDS (11.6-15.0)
--- NOTE | 2017-05-13 19:30 | NUR ---
ASSESSMENT COMPLETE. S1S2. CONTROLLED AFIB SHOWING ON THE MONITOR. RR SHALLOW. WHEEZE NOTED BILATERALLY ON ; DIMINISHED BILATERALLY IN LOWER LOBES. NOSE BLEED; DRAINING WITH BLOODY MUCOUS MEMBRANES. AAO. RADIAL PULSES PALPATED; LT PEDAL PULSE PALPATED; RT PEDAL PULSE AUDIBLE BY DOPPLER. SHEATH TO RIGHT GROIN; DRESSING CDI. PIV TO LEFT WRIST; PATENT; SLIGHT DRAINAGE; DRESSING SECURE. SORE TO RIGHT WRIST; BLEEDING; DRESSING SECURE AND INTACT.
--- NOTE | 2017-05-13 21:00 | NUR ---
NO FAMILY DURING VISITATION.
--- NOTE | 2017-05-13 23:20 | NUR ---
REASSESSMENT COMPLETE. NO CHANGES FROM PREVIOUS ASSESSMENT. VSS. NO DISTRESS NOTED. NOSE BLEEDING STILL REMAINS; DRAINING INTO THROAT. SUCTION AT BEDSIDE. WILL CONTINUE TO MONITOR.
[2017-05-14] VITALS (31 sets, daily range): BP systolic 102–152; BP diastolic 63–83
[2017-05-14 00:28] LABS: HEMATOCRIT 39.3 % (42.0-54.0); HEMOGLOBIN 12.6 g/dL (13.5-17.5); LYMPHOCYTES 4.3 % (15-50); MCH 29.8 pg (26.0-34.0); MCHC 32.1 g/dL (31.0-37.0); MEAN PLATELET VOLUME 9.9 fL (7.4-10.4); NEUTROPHILS 90.1 % (40-80); PLATELET COUNT 125 10x3/uL (130-400); RBC 4.23 10x6/uL (4.20-6.10); RDW 15.5 % (11.5-14.5)
[2017-05-14 00:32] LABS: MCV 92.9 fL (80.0-100.0); WBC 9.5 10x3/uL (4.8-10.8)
[2017-05-14 00:38] LABS: INR 1.13 (0.85-1.17); PROTIME 14.4 SECONDS (11.6-15.0)
[2017-05-14 00:39] LABS: APTT 34.8 SECONDS (22.8-39.4)
--- NOTE | 2017-05-14 01:15 | NUR ---
PT NOSE CONTINUES TO BLEED. COUGHING UP BLOOD DRAINAGE INTO THROAT. DRESSING APPLIED UNDER NOSE TO CAPTURE THE BLOOD. MONITORING CLOSELY.
--- NOTE | 2017-05-14 03:10 | NUR ---
REASSESSMENT COMPLETE. NO ACUTE CHANGES FROM PREVIOUS ASSESSMENT. MONITORING THE BLEEDING CLOSELY.
[2017-05-14 04:58] LABS: BASOPHILS 0.1 % (0-2); EOSINOPHILS 0.1 % (0-7); HEMATOCRIT 37.8 % (42.0-54.0); HEMOGLOBIN 12.3 g/dL (13.5-17.5); IMMATURE GRANULOCYTES 0.2 % (0-5); LYMPHOCYTES 4.7 % (15-50); MCH 30.9 pg (26.0-34.0); MCHC 32.5 g/dL (31.0-37.0); MEAN PLATELET VOLUME 11.3 fL (7.4-10.4); MONOCYTES 6.7 % (2-11); NEUTROPHILS 88.2 % (40-80); PLATELET COUNT 142 10x3/uL (130-400); RBC 3.98 10x6/uL (4.20-6.10); RDW 15.8 % (11.5-14.5); WBC 10.7 10x3/uL (4.8-10.8)
[2017-05-14 05:08] LABS: HEMOGLOBIN A1C 9.9 % (4.8-6.0)
[2017-05-14 05:27] LABS: APTT 37.1 SECONDS (22.8-39.4); INR 1.18 (0.85-1.17); PROTIME 14.9 SECONDS (11.6-15.0)
[2017-05-14 05:44] LABS: ALBUMIN 2.6 g/dL (3.4-5.0); ANION GAP 15.6 mmol/L (8-16); BILIRUBIN - TOTAL 1.1 mg/dL (0.2-1.3); CALCIUM 8.6 mg/dL (8.5-10.1); CREATININE - SERUM 1.3 mg/dL (0.6-1.3); DIGOXIN 0.66 ng/mL (0.90-2.00); POTASSIUM - SERUM 4.6 mmol/L (3.5-5.1); PROTEIN - SERUM 6.2 g/dL (6.4-8.2); THYROID STIMULATING HORMONE 1.06 uIU/mL (0.36-3.74)
--- NOTE | 2017-05-14 06:00 | NUR ---
NO FAMILY DURING VISITATION.
--- NOTE | 2017-05-14 07:30 | NUR ---
PT IN BED. ALERT AND ORIENTED X4. O2 AT 4L VIA NC. DRIED BLOOD NOTED TO NARSE. SHEATH TO RIGHT GROIN PATENT INFUSING HEPARIN AND ALTEPASE. RIGHT GROIN SOFT ON PALPATION. DRESSING C/D/I. NO BLEEDING OR DRAINAGE NOTED. PIV TO L ARM PATENT INFUSING NS AND DILAUDID PATENT. DRESSING C/D/I. DORSALIS PEDIS PULSES PALPABLE. BLE WARM TO TOUCH NORMAL SKIN COLOR. BED BATH GIVEN, GOWN AND BED LINENS CHANGED. REMINDED TO KEEP RIGHT LEG STRAIGHT. VERBALIZED UNDERSTANDING. NO DISTRESS/DISCOMFORT NOTED. CALL LIGHT IN REACH. WILL CONT PLAN OF CARE
--- NOTE | 2017-05-14 10:00 | NUR ---
RESTING IN BED WITH NO DISTRESS/DISCOMFORT NOTED. 0 NEEDS AT THIS TIME. CALL LIGHT IN REACH.
--- NOTE | 2017-05-14 10:18 | NUR ---
NUTRITION MONITORING & EVAL CHART REVIEWED. PT REMAINS IN ICU. CLEAR LIQUID DIET. CONSULT RECEIVED FOR DM DIET EDU. WILL WAIT UNTIL PT OUT TO FLOOR. RD FOLLOWING
[2017-05-14 10:22] LABS: BASOPHILS 0.1 % (0-2); EOSINOPHILS 0.1 % (0-7); HEMATOCRIT 38.5 % (42.0-54.0); HEMOGLOBIN 12.3 g/dL (13.5-17.5); IMMATURE GRANULOCYTES 0.4 % (0-5); LYMPHOCYTES 4.7 % (15-50); MCH 30.5 pg (26.0-34.0); MCHC 31.9 g/dL (31.0-37.0); MCV 95.5 fL (80.0-100.0); MEAN PLATELET VOLUME 10.8 fL (7.4-10.4); MONOCYTES 7.2 % (2-11); NEUTROPHILS 87.5 % (40-80); PLATELET COUNT 129 10x3/uL (130-400); RBC 4.03 10x6/uL (4.20-6.10); RDW 15.8 % (11.5-14.5); WBC 8.5 10x3/uL (4.8-10.8)
[2017-05-14 11:03] LABS: APTT 37.2 SECONDS (22.8-39.4); INR 1.19 (0.85-1.17)
--- NOTE | 2017-05-14 11:16 | NUR ---
* Is the patient Alert and Oriented? Yes 0 * How many steps to enter\exit or inside your home? 0 0 * PCP Dr. Myers 0 * Pharmacy [facility] 0 * Preadmission Environment Home Alone 0 * ADLs Independent 0 * Equipment Cane 0 * List name and contact numbers for known caregivers / representatives who currently or will assist patient after discharge: Daughter - Nicci Overton [phone] 0 * Additional services required to return to the preadmission environment? Yes 0 * Can the patient safely return to the preadmission environment? Yes 0 * Has this patient been hospitalized within the prior 30 days at any hospital? Yes 05/14/2017 11:16 DCP: Discharge Planning Patient Name: SALENA MCKEON Admission Status: Elective Accout number: [id number] Admission Date: 05-11-2017 : 1935 Admission Diagnosis:UNSPECIFIED DISORDER OF CIRCULATORY SYSTEM Attending: ZULEMA Current LOS: 3 Anticipated DC Date: 05-16-2017 Planned Disposition: Home with Home Health Primary Insurance: T MEDICARE PPO or HMO Discharge Planning Comments: CM met with patient to assess dc plans/needs. Daughter at bedside. Patient states he lives alone & is independent with all ADL's. He states he has been using a cane some since his hospital discharge in March. He denies having home health services. At discharge, he plans to return home. Daughter, Nicci, lives in [place], [place] & will be staying with patient at discharge while he recovers. Discussed home health services with them. They are agreeable to referral. Reviewed list of home health agencies with them. YARELY signed for [facility]. Initial referral faxed to Sangita with [facility]. CM will follow. Grain Inspector: Katy Stack
--- NOTE | 2017-05-14 11:25 | NUR ---
FAMILY AT BED SIDE. PT WATCHING TV WITH 0 DISTRESS/DISCOMFORT NOTED. NEUROCHECKS WNL'S. DORSALIS PEDIS PULSES PALPABLE. RLE WEAK BUT PALPABLE. RLE PALPABLE.
--- NOTE | 2017-05-14 19:30 | NUR ---
ASSESSMENT COMPLETE. S1S2; IRREGULAR. CONTROLLED AFIB SHOWING ON MONITOR. RR SHALLOW SLIGHT WHEEZE BILATERALLY IN UPPER LOBES; DIMINISHED BILATERALLY IN LOWER LOBES. 95% O2 SAT ON 2L VIA NC. AAO. PERRLA. RT GROIN PREVIOUS SHEATH SITE; DRESSING CDI. DECREASE IN NASAL BLEEDING PER YESTERDAY. SKIN PINK. RT PEDAL PULSE PALPABLE; WEAK. RADIAL PULSES +2. LT PEDAL PULSE +2.
--- NOTE | 2017-05-14 21:00 | NUR ---
NO FAMILY DURING VISITATION. REPOSITIONED FOR COMFORT. DENIES PAIN. VSS. WILL CONTINUE TO MONITOR
--- NOTE | 2017-05-14 23:10 | NUR ---
REASSESSMENT COMPLETE. NO ACUTE CHANGES FROM PREVIOUS ASSESSMENT. WILL CONTINUE TO MONITOR.
--- NOTE | 2017-05-14 23:40 | NUR ---
PT ASSISTED TO BEDPAN. SMALL LOOSE BROWN BM; URINATED 250 ML.
[2017-05-15] VITALS (10 sets, daily range): BP systolic 101–134; BP diastolic 61–82
--- NOTE | 2017-05-15 01:30 | NUR ---
PT RESTING; EYES CLOSED. VSS. NO DISTRESS NOTED. CALL LIGHT IN REACH WILL CONTINUE TO MONITOR.
--- NOTE | 2017-05-15 03:05 | NUR ---
REASSESSMENT COMPLETE. NO ACUTE CHANGES. VSS. NO DISTRESS NOTED. WILL CONTINUE TO MONITOR.
[2017-05-15 04:09] LABS: BASOPHILS 0.2 % (0-2); EOSINOPHILS 1.6 % (0-7); HEMATOCRIT 34.9 % (42.0-54.0); HEMOGLOBIN 11.2 g/dL (13.5-17.5); IMMATURE GRANULOCYTES 0.2 % (0-5); LYMPHOCYTES 11.5 % (15-50); MCH 30.4 pg (26.0-34.0); MCHC 32.1 g/dL (31.0-37.0); MCV 94.6 fL (80.0-100.0); MEAN PLATELET VOLUME 10.9 fL (7.4-10.4); MONOCYTES 9.7 % (2-11); NEUTROPHILS 76.8 % (40-80); PLATELET COUNT 123 10x3/uL (130-400); RBC 3.69 10x6/uL (4.20-6.10); RDW 15.8 % (11.5-14.5)
[2017-05-15 04:12] LABS: WBC 5.8 10x3/uL (4.8-10.8)
[2017-05-15 04:21] LABS: ANION GAP 10.4 mmol/L (8-16); CALCIUM 8.3 mg/dL (8.5-10.1); CARBON DIOXIDE 24.8 mmol/L (21.0-32.0); CREATININE - SERUM 1.4 mg/dL (0.6-1.3); POTASSIUM - SERUM 4.2 mmol/L (3.5-5.1)
--- NOTE | 2017-05-15 07:00 | NUR ---
ASSESSMENT COMPLETE PER FLOWSHEET. NO CO AT TIME.
--- NOTE | 2017-05-15 09:30 | NUR ---
RX GIVEN FOR ELIQUIS AND SOTOLOL TO DAUGHTER.
--- NOTE | 2017-05-15 10:00 | NUR ---
IV DCD PRESSURE HELD.
[2017-05-15] MEDS ORDERED: ELIQUIS5 MG PO (11:29)
[2017-05-15] MEDS ORDERED: LANOXIN125 MCG PO (11:29)
[2017-05-15] MEDS ORDERED: BETAPACE 80 MG80 MG PO (11:29)
[2017-05-15] MEDS ORDERED: ASPIRIN81 MG PO (11:30)
[2017-05-15] MEDS ORDERED: NORCO 7.5/325 T1 TA1 PO (11:31)
[2017-05-15] MEDS ORDERED: PROTONIX40 MG PO (11:31)
--- NOTE | 2017-05-15 11:45 | NUR ---
DC INSTRUCTIONS GIVEN. VOICES NO CO AT TIME. LEFT WITH DAUGHTER AND SONIN LAW.
--- NOTE | 2017-05-15 13:42 | NUR ---
05/15/2017 13:41 DCP: Discharge Planning Patient Name: SALENA MCKEON Encounter No: [id number] : 1935 Primary Insurance: [employer] MEDICARE PPO or HMO Anticipated DC Date: 05-16-2017 Planned Disposition: Home with Home Health External Planned Provider: [facility] DCP follow-up note: DC order rec'd. Patient and family in agreement with discharge plan. No changes to plan. DC Med Rec & instructions faxed to Sangita with [facility]. Katy Stack
== END 2017-05-15 16:36 | disposition home health service (06) | DRG 254 ==
LOC: D.ICU 20:06 → D.WS 20:06 → D.ICU 05-12 12:34
PROVIDERS: Family Medicine; General Practice; Radiology Diagnostic Radiology; Specialist; ADMIT Family Medicine
PROC: 3E05317 Introduction of Other Thrombolytic into Peripheral Artery, Percutaneous Approach (ICD-10-PCS; 2017-05-12)
PROC: B41F1ZZ Fluoroscopy of Right Lower Extremity Arteries using Low Osmolar Contrast (ICD-10-PCS; principal; 2017-05-12 10:00)
PROC: 047M3Z1 Dilation of Right Popliteal Artery using Drug-Coated Balloon, Percutaneous Approach (ICD-10-PCS; 2017-05-13)
PROC: 3E05317 Introduction of Other Thrombolytic into Peripheral Artery, Percutaneous Approach (ICD-10-PCS; 2017-05-14)
DX: I70.211 Atherosclerosis of native arteries of extremities with intermittent claudication, right leg (principal); I48.91 Unspecified atrial fibrillation; Z86.718 Personal history of other venous thrombosis and embolism; E78.5 Hyperlipidemia, unspecified; I10 Essential (primary) hypertension; E11.65 Type 2 diabetes mellitus with hyperglycemia; E03.9 Hypothyroidism, unspecified; I25.10 Atherosclerotic heart disease of native coronary artery without angina pectoris

== ENCOUNTER 2017-07-01 08:04 | Outpatient (CLI) | payer MEDICARE ==
[~2017-07-01] VITALS: Ht 185.4 cm; Wt 85.5 kg
--- NOTE | ~2017-07-01 | HEMODYNAMI ---
PATIENT:SALENA MCKEON MEDICAL RECORD: [id number] : [birth year] LOCATION:D.CAT ADMISSION DATE: 07/01/17 Generatedon:07/01/201711:32 Patient name: SALENA MCKEON Patient #: [id number] SSN: [id number] : 1935 Date of study: 07/01/2017 Page: Of Hemodynamic Procedure Report Patient Data Patient Demographics Procedure consent was obtained First Name: SALENA Gender: Male Last Name: LINDA : 1935 Middle Initial: TAMIR Age: 81 year(s) Patient #: [id number] Race: Unknown SSN: [id number] Additional ID: [id number] Contact details Address: [place] [address] State: [place] City: [place] Zip code: [address] Past Medical History Allergies: No known allergies Admission Admission Data Admission Date: 07/01/2017 Admission Time: 8:04 Procedure Procedure Types Cath Procedure Diagnostic Procedure Cardioversion Procedure Description Procedure Date Procedure Date: 07/01/2017 Procedure Start Time: 11:20 Procedure Staff Name Function Anuj Avalos MD Performing Physician Ulises Aguilar RT Monitor Salvador Meade RN Nurse Bhavesh Bauman MD Additional personnel Hemodynamics Rest Heart Rate: 85 (bpm) Snapshots Pre Cath Intra NCS Post Cath Vital Signs Time Heart Resp SPO2 NIBP (mmHg) Rhythm Pain Sedation Rate (ipm) (%) Status Level (bpm) 11:13:54 98 18 98 133/94(120) NSR 0 (11) 10(A) , No pain 11:18:02 87 33 97 131/90(121) NSR 0 (11) 10(A) , No pain 11:22:10 87 15 99 125/88(111) NSR 0 (11) 10(A) , No pain 11:26:22 77 22 97 113/70(89) NSR 0 (11) 10(A) , No pain 11:30:28 74 17 98 99/71(84) NSR 0 (11) 10(A) , No pain Procedure Log Time Note 10:59:06 Salvador Meade RN sent for patient. Start room use. 11::29 Time tracking: Regular hours 11:08:35 Plan of Care:Hemodynamics will remain stable., Cardiac rhythm will remain stable., Comfort level will be maintained., Respiratory function will remain adequate., Patient/ family verbilizes understanding of procedure., Procedure tolerated without complication., Recovers from procedure without complications.. 11:08:55 Patient arrived from Pre/Post Procedure Room to [facility] 3. Patient remains on bed/stretcher for procedure. 11:08:57 Correct patient and procedure confirmed by team. 11::59 Signed procedure consent form obtained from patient. 11:09:00 ECG and BP/O2 sat monitors applied to patient. 11:09:02 Full Disclosure recording started 11:09:03 - 11::07 H&P Date Dictated: 07/01/2017 H&P Addendum completed by physician on day of procedure. (MUST COMPLETE FOR ALL OUTPATIENTS). 11:09:08 - 11:09:28 SEE ANESTHESIA NOTE FOR PRE PROCEDURE TIVA 11::29 - 11:11:25 Quick Combo opened to sterile field. 11:12:58 Vital chart was started 11:12:59 Baseline sample Acquired. 11:13:04 Rhythm: atrial fibrillation 11:13:09 Baseline sample Acquired. 11:13:32 Baseline sample Acquired. 11:16:49 present and monitoring patient for TIVA. 11:20:07 Physician arrived 11:20:08 --------ALL STOP TIME OUT------ 11:20:09 Final Timeout: patient, procedure, and site verified with staff and physician. All members of the team are in agreement. 11:20:37 Physical assessment completed. ASA score P 2 - A patient with mild systemic disease as per Bhavesh Bauman MD. 11:20:48 Sedation plan: TIVA Propofol 11:20:58 Procedure started. 11:21:05 ------Cardioversion------ 11:21:05 Quick combo pads placed on patients chest and back. 11:22:21 Defibrillator synced and charged to 200 Joules. 11:22:34 Shock delivered. 11:23:47 Patient cardioverted to 1st degree heart block. 11:23:55 Procedure ended.(Physican Out) 11:24:43 SEE ANESTHESIA NOTE FOR POST PROCEDURE TIVA 11:25:51 QUICK COMBO PADS REMOVED 11:32:12 Report given to Pre/Post Procedure Room. 11:32:16 Patient transfered to Pre/Post Procedure Room with Stretcher. 11:32:51 Vital chart was stopped Device Usage Item Manufacture Quantity Catalog Hospital Part Current Minimal Lot# / Name Number Charge Number Joel Mahoney ne# Code FriendsEAT 1 [id number] Combo Signature Audit [place] Stage Time Signature Unsigned Intra-Procedure 07/01/2017 Ulises 11:32:48 AM Jeff RT (R) (CV) Signatures Monitor : Ulises Signature : Jeff RT Date : Time : [place] [address]
--- NOTE | ~2017-07-01 | OP ---
PATIENT NAME: SALENA MCKEON MEDICAL RECORD: [id number] :[birth year] LOCATION:D.CAT ADMISSION DATE: SURGEON: PEACE VALENZUELA MD DATE OF OPERATION: 07/01/2017 PROCEDURE: DC cardioversion. INDICATION: Atrial fibrillation. PROCEDURE IN DETAIL: IV conscious sedation was performed per anesthesia. Continuous heart rate, O2 saturation, blood pressure monitoring all undertaken, all of which remains stable. He received 1 shock at 200 joules restoring sinus rhythm. OVERALL IMPRESSION: Successful DC cardioversion from atrial fibrillation to sinus rhythm. TRANSINT:[id number] Voice Confirmation ID: [id number] DOCUMENT ID: [id number] PEACE VALENZUELA MD CC: [id number] DICTATION DATE: 07/01/17 1125 SCAGLIOLA MECHANIC: 07/01/171935 [facility] CLI 07/01/17 [place] [id number]
[~2017-07-01 08:04] MED LIST changes: +ASPIRIN81 MG PO; +BETAPACE 80 MG80 MG PO; +NORCO 7.5/325 T1 TA1 PO; +PROTONIX40 MG PO; +VITAMIN D3400 UNI1 PO
[2017-07-01] MEDS ORDERED: LEVOTHYROXINE125 MCG PO (08:40)
[2017-07-01] MEDS ORDERED: CORDARONE200 MG PO (08:40)
[2017-07-01] MEDS ORDERED: FUROSEMIDE20 MG PO (08:41)
[2017-07-01 08:52] VITALS: BP 127/86; Ht 185.4 cm; Wt 85.5 kg
[2017-07-01 08:55] LABS: BASOPHILS 0.3 % (0-2); EOSINOPHILS 1.7 % (0-7); HEMATOCRIT 38.9 % (42.0-54.0); HEMOGLOBIN 12.7 g/dL (13.5-17.5); IMMATURE GRANULOCYTES 0.2 % (0-5); LYMPHOCYTES 11.1 % (15-50); MCH 30.3 pg (26.0-34.0); MCHC 32.6 g/dL (31.0-37.0); MCV 92.8 fL (80.0-100.0); MEAN PLATELET VOLUME 10.2 fL (7.4-10.4); MONOCYTES 8.4 % (2-11); NEUTROPHILS 78.3 % (40-80); RBC 4.19 10x6/uL (4.20-6.10); RDW 14.9 % (11.5-14.5); WBC 6.6 10x3/uL (4.8-10.8)
[2017-07-01 08:56] LABS: PLATELET COUNT 211 10x3/uL (130-400)
[2017-07-01 09:11] LABS: ANION GAP 14.2 mmol/L (8-16); CALCIUM 9.3 mg/dL (8.5-10.1); CARBON DIOXIDE 28.6 mmol/L (21.0-32.0); CREATININE - SERUM 1.7 mg/dL (0.6-1.3); POTASSIUM - SERUM 3.8 mmol/L (3.5-5.1)
[2017-07-01 09:25] LABS: INR 1.83 (0.85-1.17); PROTIME 21.1 SECONDS (11.6-15.0)
--- NOTE | 2017-07-01 11:55 | NUR ---
2L NC, NO RESP DISTRESS NOTED. VSS. NSR @ 77 ON MONITOR. NO C/O NAUSEA AT THIS TIME. CALL LIGHT WITHIN REACH.
--- NOTE | 2017-07-01 12:15 | NUR ---
WATER GIVEN, NO N/V NOTED. VSS.
--- NOTE | 2017-07-01 12:31 | NUR ---
LEFT HAND PIV D/C'D WITH CATHETER INTACT, BAND AID TO SITE. UP TO BEDSIDE TO GET DRESSED.
--- NOTE | 2017-07-01 12:40 | NUR ---
DISCHARGE INSTRUCTIONS GIVEN, VERBALIZED UNDERSTANDING.
--- NOTE | 2017-07-01 12:45 | NUR ---
TAKEN OUT VIA WHEELCHAIR BY CATH FOLDER [employer]. LEFT FACILITY WITH FAMILY MEMBER AND ALL PERSONAL BELONGINGS.
== END 2017-07-01 12:45 | disposition home or self-care (01) ==
LOC: D.CATH 08:04
PROVIDERS: Internal Medicine Interventional Cardiology
DX: I48.91 Unspecified atrial fibrillation (principal); Z01.812 Encounter for preprocedural laboratory examination

== ENCOUNTER 2017-07-07 22:26 | Observation (INO) | payer MEDICARE ==
[~2017-07-07] VITALS: Ht 185.4 cm; Wt 86.6 kg
[~2017-07-07 22:26] MED LIST changes: +CORDARONE200 MG PO; +LEVOTHYROXINE125 MCG PO
[2017-07-07 23:10] LABS: BASOPHILS 0.4 % (0-2); EOSINOPHILS 1.2 % (0-7); HEMATOCRIT 38.4 % (42.0-54.0); HEMOGLOBIN 12.7 g/dL (13.5-17.5); IMMATURE GRANULOCYTES 0.1 % (0-5); LYMPHOCYTES 8.7 % (15-50); MCH 30.1 pg (26.0-34.0); MCHC 33.1 g/dL (31.0-37.0); MEAN PLATELET VOLUME 10.5 fL (7.4-10.4); NEUTROPHILS 80.6 % (40-80); PLATELET COUNT 201 10x3/uL (130-400); RBC 4.22 10x6/uL (4.20-6.10); RDW 14.7 % (11.5-14.5); WBC 7.5 10x3/uL (4.8-10.8)
[2017-07-07 23:28] LABS: ALBUMIN 3.4 g/dL (3.4-5.0); ANION GAP 12.7 mmol/L (8-16); BILIRUBIN - TOTAL 0.87 mg/dL (0.2-1.3); CALCIUM 8.9 mg/dL (8.5-10.1); CARBON DIOXIDE 27.3 mmol/L (21.0-32.0); CREATININE - SERUM 1.8 mg/dL (0.6-1.3); PROTEIN - SERUM 7.3 g/dL (6.4-8.2)
[2017-07-07 23:45] LABS: TROPONIN-I 0.127 ng/mL (0.000-0.060)
[2017-07-08 05:33] VITALS: BP 136/81; Ht 185.4 cm; Wt 86.6 kg
--- NOTE | 2017-07-08 07:39 | NUR ---
PT LAYING TO LEFT SIDE SLEEPING RR EVEN AND UNLABORED NO S/S DISTRESS NOTED WILL CONT TO MONITOR. ORDER TO RECONCILE HOME MEDS AND RESTART. PT IS SLEEPING, WILL GO OVER WITH PT WHEN HE IS AWAKE AND RESTART MEDS ORDERED.
[2017-07-08 08:00] VITALS: BP 105/62
--- NOTE | 2017-07-08 09:25 | NUR ---
RESTARTED HOME MEDS ORDER STATED. WILL GIVE ONCE VERIFIED FROM PHARM
[2017-07-08 11:46] VITALS: BP 108/64
--- NOTE | 2017-07-08 14:22 | NUR ---
PT SITTING UP IN BED WATCHING TV DENIES ANY NEEDS AT THIS TIME
[2017-07-08 15:23] VITALS: BP 96/60
--- NOTE | 2017-07-08 17:30 | NUR ---
RECEIVED REPORT, WILL ASSUME CARE OF PT, PT DENIES ANY NEEDS, BED IS LOW, SRX2, CALL LIGHT IN REACH, WILL CONTINUE PLAN OF CARE
[2017-07-08 20:02] VITALS: BP 111/65
[2017-07-09 00:35] VITALS: BP 111/70
--- NOTE | 2017-07-09 04:30 | NUR ---
LOAN REVIEW OFFICER AT BEDSIDE TO OBTAIN VITALS, CALL LIGHT IN REACH. WILL CONTINUE TO MONITOR.
--- NOTE | 2017-07-09 04:53 | NUR ---
ASSESSMENT COMPLETE, SEE FLOWSHEET, BED IS LOW, SRX2, CALL LIGHT IN REACH, WILL CONTINUE TO MONITOR
[2017-07-09 05:38] VITALS: BP 106/67
--- NOTE | 2017-07-09 07:19 | NUR ---
PT SITTING UP IN BED WATCHING TV DENIES NEEDS WILL CONT TO MONITOR
[2017-07-09 08:23] VITALS: BP 101/68
[2017-07-09] MEDS ORDERED: BUMEX2 MG PO (10:50)
--- NOTE | 2017-07-09 10:57 | NUR ---
WRITTEN SCRIPT FOR BUMEX 2 MG #60 WITH 6 REFILLS IS GIVEN TO PATIENT.
[2017-07-09 11:36] VITALS: BP 101/62
--- NOTE | 2017-07-09 11:46 | NUR ---
WENT OVER DC INSTRUCTIONS WITH PT PT VERBALIZES UNDERSTANDING. DC PIV WITH CATH TIP INTACT DC TELE RETURNED TO MOLDED [employer] CUTTER. PT LEFT VIA WHEELCHAIR WITH FRIEND
--- NOTE | 2017-07-10 09:41 | DS ---
PATIENT:SALENA MCKEON :[birth year] MEDICAL RECORD: [id number] DISCHARGE SUMMARY ADMISSION DATE: 07/08/17 DISCHARGE DATE: 07/09/17 DIAGNOSES: 1. Congestive heart failure. 2. Chronic systolic dysfunction. 3. Atrial fibrillation. 4. Coronary artery disease. 5. Hypertension. HOSPITAL COURSE: Mr. Mckeon presents with lower extremity edema, congestive heart failure from chronic systolic dysfunction, underwent diuresis, was discharged home with the addition of Bumex and placed a Lasix to his medical regimen. We will follow up with [facility] in 2 weeks. TRANSINT:[id number] Voice Confirmation ID: [id number] DOCUMENT ID: [id number] PEACE VALENZUELA MD at 0941 CC: [id number] DICTATION DATE: 07/09/17 1041 SLIP PRESSER: 07/09/17 2340 DIS IN 07/09/17 [facility] [address] [place] [address]
--- NOTE | 2017-07-10 09:41 | HP ---
PATIENT: SALENA MCKEON MEDICAL RECORD: [id number] ACCOUNT: [id number] LOCATION:D.[facility].2120 : [birth year] ADMISSION DATE: 07/08/17 HISTORY AND PHYSICAL EXAMINATION DATE OF SERVICE: 07/08/2017 DIAGNOSES: 1. Fluid overload. 2. Shortness of breath. 3. Lower extremity edema. 4. Congestive heart failure, chronic systolic dysfunction. 5. Cardiomyopathy. 6. Atrial fibrillation. 7. Coronary artery disease. 8. Hypertension. HISTORY OF PRESENT ILLNESS: This is a gentleman who is well known to us with a past history of cardiomyopathy, coronary artery disease and atrial fibrillation. He does not tolerate atrial fibrillation with symptomatology of heart failure. He underwent DC cardioversion here and at [facility], has reverted back to atrial fibrillation each time. He was seen by Dr. Byrnes approximately 4 years ago, had atrial fibrillation ablation. He has been treated with multiple medications including sotalol and Cordarone, still reversed back to atrial fibrillation, presents with fluid overload state. Last ejection fraction is in the 35% range. PHYSICAL EXAMINATION: GENERAL APPEARANCE: Well-nourished, well-developed, appears stated age. Level of distress, comfortable. PSYCHIATRIC: Mental status, alert, normal affect. Orientation, oriented to time, place and person. EYES: Lids and conjunctiva, noninjected. No discharge, no pallor. ENT: Lips, teeth, gums, normal dentition. Oropharynx, no cyanosis, no pallor. NECK: Carotid arteries, bilateral normal upstroke, no bruits, no thrills. JUGULAR VEINS: No jugular venous pressure or distention. CERVICAL LYMPH NODES: Nontender, nonenlarged. THYROID: Not enlarged. Nontender. No nodules. LUNGS: Respiratory effort, unlabored. CHEST: Normal curvature. No thoracic deformity. No chest wall tenderness. Percussion, resonant. Auscultation, clear. No wheezes, no rales, no rhonchi. CARDIOVASCULAR: Irregularly irregular with atrial fibrillation. EXTREMITIES: No cyanosis, no edema. Peripheral pulses, full and equal in all extremities, except as noted. No bruits appreciated. ABDOMEN: Soft, nondistended. Normal aorta. No bruit. Nontender. No masses. Liver, nontender, no hepatomegaly. Spleen, nontender, no splenomegaly. MUSCULOSKELETAL: No joint tenderness. No joint swelling. No erythema. NEUROLOGICAL: Normal gait, normal strength, normal tone. SKIN: Warm and dry. REVIEW OF SYSTEMS: The patient reports easy bruising but reports no swollen glands. The patient reports no fever, no night sweats, no significant weight gain, no significant weight loss. No significant exercise tolerance. The patient reports no dry eyes, no irritation, no vision change. Patient reports no difficulty hearing and no ear pain. Patient reports no frequent nose bleeds HISTORY AND PHYSICAL [id number] SALENA MCKEON or nose and sinus problems. Patient reports on arm pain on exertion. No shortness of breath while lying down. No history of heart murmur. Patient reports no cough, no wheezing or coughing up blood. Patient reports no abdominal pain, no vomiting. Normal appetite. No diarrhea and not vomiting blood. No nausea and no constipation. Patient reports no incontinence. No difficulty urinating. No hematuria. No increased frequency. Patient reports no muscle aches. No weakness, no arthralgias, no back pain. No swelling of the extremities. Patient reports no abnormal mole, no jaundice, no rashes. Reports no loss of consciousness. No weakness and no numbness. No seizures, dizziness, or headaches. The patient reports no depression, no sleep disturbance, feeling safe in a relationship and no alcohol abuse. Patient reports on fatigue. Reports no runny nose or sinus pressure. No itching, no hives, and no frequent sneezing. OVERALL IMPRESSION: Intolerance of atrial fibrillation secondary to congestive heart failure and fluid overload. We will perform IV diuresis. Continue the Cordarone and Eliquis that he is on. Sent him back to Dr. Byrnes to see if a second atrial fibrillation ablation would be of benefit. TRANSINT:[id number] Voice Confirmation ID: [id number] DOCUMENT ID: [id number] PEACE VALENZUELA MD at 0941 CC: [id number] DICTATION DATE: 07/08/17 1053 SOFTBALL CORE MOLDER: 07/08/17 1131 DIS IN 07/09/17 [facility] [address] [place] [address]
== END 2017-07-09 11:48 | disposition home or self-care (01) ==
LOC: D.ER 22:26 → OBSVTIME 07-08 01:09 → D.M2 07-08 01:09
PROVIDERS: Family Medicine; ADMIT Internal Medicine Interventional Cardiology
DX: I11.0 Hypertensive heart disease with heart failure (principal); I50.22 Chronic systolic (congestive) heart failure; I25.10 Atherosclerotic heart disease of native coronary artery without angina pectoris; I48.91 Unspecified atrial fibrillation; I42.9 Cardiomyopathy, unspecified

== ENCOUNTER → 2017-08-17 10:33 | Outpatient (CLI) | payer MEDICARE ==
[2017-07-08 05:33] VITALS: BMI 25.9
[~2017-08-17 10:33] MED LIST changes: +BUMEX2 MG PO
== END | disposition home or self-care (01) ==
LOC: D.RT 10:33
DX: J44.9 Chronic obstructive pulmonary disease, unspecified (principal)

== ENCOUNTER → 2017-09-18 09:16 | Outpatient (CLI) | payer MEDICARE ==
[~2017-09-18 09:16] MED LIST changes: +ALDACTONE25 MG PO; +BUMEX 1 MG TAB1 MG PO; +ELIQUIS2.5 MG PO; +FUROSEMIDE40 MG PO; +LASIX80 MG PO; +METOLAZONE2.5 MG PO; +POTASSIUM CHLO10 ME1 PO; +PROSCAR5 MG PO
[2017-09-18 09:45] VITALS: BP 128/78; BMI 26.6
[2017-09-18 10:17] LABS: ANION GAP 13.7 mmol/L (8-16); CALCIUM 9.5 mg/dL (8.5-10.1); CREATININE - SERUM 2.1 mg/dL (0.6-1.3); POTASSIUM - SERUM 3.7 mmol/L (3.5-5.1)
--- NOTE | 2017-09-18 10:40 | NUR ---
BUMEX AND DOBUTAMINE GTTS STARTED PER ORDERS. WILL MONITOR.
--- NOTE | 2017-09-18 12:40 | NUR ---
LUNCH TRAY SERVED. GTTS INFUSING PER ORDERS. VITAL SIGNS STABLE. NO NEEDS VOICED AT THIS TIME. CALL LIGHT WITHIN REACH.
--- NOTE | 2017-09-18 14:30 | NUR ---
RESTING QUIETLY WITH EYES CLOSED. VSS. NO C/O AT THIS TIME. WILL CONTINUE TO MONITOR.
--- NOTE | 2017-09-18 16:30 | NUR ---
RESTING QUIETLY. VSS. NO NEEDS VOICED AT THIS TIME. AT BEDSIDE, CALL LIGHT WITHIN REACH.
--- NOTE | 2017-09-18 17:54 | NUR ---
NO DISTRESS NOTED. VSS WITH DRIP INFUSING ORDERED
--- NOTE | 2017-09-18 18:11 | NUR ---
TOTAL OUTPUT OF 2850 CC URINE WITH WEIGHT OF 187.4 NO DISTRESS NOTED. PIV REMOVED WITH PATIENT UP TO GET DRESSED FOR DISCHARGE HOME.VSS AND PAIN DENIED
== END | disposition home or self-care (01) ==
LOC: D.CATH 08:00
PROVIDERS: Internal Medicine Cardiovascular Disease
DX: I50.9 Heart failure, unspecified (principal); I42.9 Cardiomyopathy, unspecified

== ENCOUNTER 2017-09-28 18:45 | Inpatient (IN) | payer MEDICARE ==
[~2017-09-28] VITALS: Ht 182.9 cm; Wt 86.5 kg
[~2017-09-28 18:45] MED LIST changes: -ALDACTONE25 MG PO; -BUMEX 1 MG TAB1 MG PO; -ELIQUIS2.5 MG PO; -LASIX80 MG PO; -METOLAZONE2.5 MG PO; -POTASSIUM CHLO10 ME1 PO; -PROSCAR5 MG PO
[2017-09-28] MEDS ORDERED: GLIMEPIRIDE2 MG PO (18:57)
[2017-09-28] MEDS ORDERED: FUROSEMIDE20 MG PO (18:57)
--- NOTE | 2017-09-28 19:30 | NUR ---
RECIEVED TO ROOM [address] GALLEGOS, PT A&O. RESPERATIONS EVEN ON RA. PT DENIES PAIN OR NEEDS, BED LOW, CL IN REACH, DAUGHTER AT BED SIDE.
--- NOTE | 2017-09-28 20:08 | NUR ---
IV SITED TO LEFT FOREARM, 22 GAUGE, FIRST ATTEMPT BY Cm ANDREWS LPN. PT TOLERTED WELL.
[2017-09-28 20:49] LABS: ALBUMIN 3.1 g/dL (3.4-5.0); ALKALINE PHOSPHATASE 163 U/L (46-116); ALT (SGPT) 35 U/L (10-68); BILIRUBIN - TOTAL 0.88 mg/dL (0.2-1.3); CARBON DIOXIDE 27.9 mmol/L (21.0-32.0); CHLORIDE - SERUM 97 mmol/L (98-107); CREATINE KINASE 90 UL (21-232); LDH 208 U/L (85-227); POTASSIUM - SERUM 3.4 mmol/L (3.5-5.1); PRO BNP 6170 pg/mL (0-450); SODIUM 136 mmol/L (136-145); THYROID STIMULATING HORMONE 3.94 uIU/mL (0.36-3.74); UREA NITROGEN 62 mg/dL (7-18); eGFR NON AFRICAN AMERICAN 34 mL/min (90-120)
[2017-09-28 20:54] LABS: CALC OSMOLALITY 293 mosm/kg (275-300); GLUCOSE 178 mg/dL (74-106)
[2017-09-28 20:55] LABS: TROPONIN-I 0.181 ng/mL (0.000-0.060)
--- NOTE | 2017-09-28 21:05 | NUR ---
HS MEDS GIVEN WITH FRESH ICE WATER. BUEMEX DRIP AT 10 CC/HR AND DOBUTAMINE DRIP AT 13.4 CC/HR (5MCK/KILO WITH WT A STANDING WT OF 89 KG) INFUSING TO LEFT FOREARM IV. URINAL GIVEN AND ASKED PT TO USE IT SO WE CAN OBTIAN ACCURATE OUT PUT. PT STATED UNDERSTANDING. OFFERED PT LUBA MACE HOWEVER PT DECLINED STATING THAT HE HAD EATEN DINNER BEFORE HE CAME IN. NO OTHER NEEDS VOICED AT THIS TIME.
[2017-09-28 22:18] VITALS: BP 126/73
[2017-09-29] VITALS (8 sets, daily range): BP systolic 101–126; BP diastolic 65–73; Ht 182.9 cm; Wt 86.5 kg
--- NOTE | 2017-09-29 03:36 | NUR ---
RESTING WITH EYES CLOSED, RESPERATIONS EVEN, NO S/S DISTRESS NOTED.
[2017-09-29 05:35] LABS: CALCIUM 8.7 mg/dL (8.5-10.1); CREATININE - SERUM 1.6 mg/dL (0.6-1.3)
[2017-09-29 05:54] LABS: ANION GAP 15.4 mmol/L (8-16); CARBON DIOXIDE 25.6 mmol/L (21.0-32.0)
--- NOTE | 2017-09-29 07:51 | NUR ---
AM ROUNDS - PT IS IN BED AND AWAKE AT THIS TIME. PT REFUSES NON SKID SOCKS, STATES HE HAS SLIPPERS AND CANT PUR HIS SLIPPERS ON IF HE HAS SOCKS ON. MONITOR SHOWING CAF, HR 72. IV TO LEFT FA, BUMEX AT 10CC/HR AND DOBUTAMINE AT 13.4CC/HR. BED AT LOWEST POSITION. CALL RAMOS IN USE/REACH. SIDE RAILS UP X2. NO NEEDS AT THIS TIME. WILL CONTINUE TO MONITOR
--- NOTE | 2017-09-29 10:44 | NUR ---
Wound care: Noted open wound to right medial ankle measuring 0.5cm x 1cm surrounded by bright redness (blanches very slowly). Leg is edematous. Pt states this wound opened up a few weeks ago after his legs swelled up. Recommended triple antibiotic ointment and a non-adherent gauze - using paper tape (patient states he uses paper tape at home). Wound care will follow as needed.
--- NOTE | 2017-09-29 17:48 | NUR ---
PT IN BED AT THIS TIME. NO NEEDS. WILL CONTINUE OT MONITOR
[2017-09-29 19:05] LABS: APPEARANCE CLEAR (CLEAR); BILIRUBIN NEGATIVE (NEGATIVE); COLOR YELLOW (YELLOW); GLUCOSE NEGATIVE (NEGATIVE); KETONE NEGATIVE (NEGATIVE); NITRITE NEGATIVE (NEGATIVE); PROTEIN NEGATIVE (NEGATIVE); SPECIFIC GRAVITY 1.015 (1.005-1.020); UROBILINOGEN NORMAL (NORMAL)
[2017-09-30 04:00] VITALS: BP 122/56
--- NOTE | 2017-09-30 05:25 | NUR ---
PT LYING ON HIS BACK, RESTING COMFORTABLY. CONTINUE TO MONITOR CLOSELY.
[2017-09-30 06:30] LABS: ANION GAP 12.3 mmol/L (8-16); CALCIUM 8.9 mg/dL (8.5-10.1); CARBON DIOXIDE 30.1 mmol/L (21.0-32.0); CREATININE - SERUM 1.7 mg/dL (0.6-1.3); POTASSIUM - SERUM 3.4 mmol/L (3.5-5.1)
[2017-09-30 08:00] VITALS: BP 110/65
--- NOTE | 2017-09-30 08:15 | NUR ---
AM ROUNDS - PT IS IN BED AND AWAKE AT THIS TIME. PERSONAL SLIPPERS ON, REFUSES NON SKID SOCKS. IV TO LEFT FA, BUMEX AT 10CC/HR, DOBUTAMINE AT 13.4CC/HR. MONITOR SHOWING CAF, HR 72. PT IS UP AD HARVINDER. A&O. BED AT LOWEST POSITION. CALL RAMOS IN USE/REACH. SIDE RAILS UP X2. BED AT LOWEST POSITION. NO NEEDS AT THIS TIME. WILL CONTINUE TO MONITOR
[2017-09-30 11:51] VITALS: BP 115/64
[2017-09-30 17:26] VITALS: BP 117/76
[2017-09-30 22:49] VITALS: BP 140/74
--- NOTE | 2017-09-30 23:30 | NUR ---
PATIENT IS ALERT, WATCHING TV. DRESSING CHANGE DONE TO RIGHT ANKLE. CALL LIGHT IN REACH.
[2017-10-01] VITALS: BP 104/53
--- NOTE | 2017-10-01 00:16 | NUR ---
CAN WORKER AT BEDSIDE, CALL LIGHT IN REACH. WILL CONTINUE WITH PLAN OF CARE. 72 CAF ON TELEMETRY
[2017-10-01 06:55] LABS: ANION GAP 14.9 mmol/L (8-16); CALCIUM 9.3 mg/dL (8.5-10.1); CARBON DIOXIDE 26.6 mmol/L (21.0-32.0); CREATININE - SERUM 1.8 mg/dL (0.6-1.3); POTASSIUM - SERUM 3.5 mmol/L (3.5-5.1)
[2017-10-01 08:00] VITALS: BP 97/55
--- NOTE | 2017-10-01 09:00 | NUR ---
MORNING MEDICATIONS GIVEN ORDERED. PT C/O NOT HAVING A BM IN A COUPLE DAYS AND STATES HE NORMALLY GOES TWICE A DAY, ABDOMEN SOFT AND NONDISTENDED WITH NORMAL BOWEL SOUNDS, WILL ASK PRIMARY FOR STOOL STOFTNER OR LAXATIVE. PT VOICED THANKS. PT IS A DAILY WEIGHT HOWEVER HAS NOT BEEN RECORDED IN TWO DAYS. STAND UP WEIGHT COMPLETED AND PT IS CURRENTLY 196POUNDS. ADJUSTED PTS DOBUTAMIN DRIP IT IS BASED OFF OF WEIGHT, NOW INFUSING VIA L.WRIST PIV @13.4ML/HR AND BUMEX GOING AT ORDERED RATE OF 10ML/HR, DRSG CDI AND SWAB CAPS IN USE. ENCOURAGED PT TO ELEVATE BILAT FEET WHILE LYING IN BED TO HELP REDUCE SWELLING PT DEMONSTRATED PROPER ELEVATON AND IS RESTING QUIETLY IN BED AT THIS TIME. CHANGED PTS R.ANKLE DRSG AND APPLIED NEOSPORIN ORDERED, PT HAS SMALL OPEN SCAB NO FURTHER NEEDS AT THIS TIME. CL IN REACH, BED IN LOWEST, SIDE RAILS X2, WILL CPOC.
[2017-10-01 12:00] VITALS: BP 110/64
[2017-10-01 13:03] LABS: BASOPHILS 0.1 % (0-2); EOSINOPHILS 1.1 % (0-7); HEMATOCRIT 37.3 % (42.0-54.0); HEMOGLOBIN 12.2 g/dL (13.5-17.5); IMMATURE GRANULOCYTES 0.4 % (0-5); LYMPHOCYTES 7.9 % (15-50); MCH 28.2 pg (26.0-34.0); MCHC 32.7 g/dL (31.0-37.0); MCV 86.1 fL (80.0-100.0); MEAN PLATELET VOLUME 10.1 fL (7.4-10.4); MONOCYTES 7.3 % (2-11); NEUTROPHILS 83.2 % (40-80); PLATELET COUNT 184 10x3/uL (130-400); RBC 4.33 10x6/uL (4.20-6.10); RDW 17.3 % (11.5-14.5); WBC 7.9 10x3/uL (4.8-10.8)
[2017-10-01 16:00] VITALS: BP 132/76
[2017-10-01 21:24] VITALS: BP 120/68
[2017-10-02 01:40] VITALS: BP 118/73
[2017-10-02 04:00] VITALS: BP 144/66
--- NOTE | 2017-10-02 05:16 | NUR ---
PT C/O CONSTIPATION. STATES HE HAS NOT HAD A BM IN 4 DAYS AND HIS REGULAR IS 1-2 TIMES PER DAY. STATES IT FEELS LIKE HE CAN GO BUT IT WONT COME OUT. REPORTED TO NURSE IN CHARGE OF PT. PT DENIES ANY OTHER NEEDS. NO S/S OF DISTRESS. WILL CPOC
[2017-10-02 07:11] LABS: ANION GAP 13.6 mmol/L (8-16); CREATININE - SERUM 1.9 mg/dL (0.6-1.3); POTASSIUM - SERUM 3.6 mmol/L (3.5-5.1)
[2017-10-02 08:00] VITALS: BP 107/62
--- NOTE | 2017-10-02 10:30 | NUR ---
TELEMETRY ST. IV PATENT. UP SOB WITH CALL LIGHT IN REACH. WILL CONT. PLAN OF CARE.
[2017-10-02 12:00] VITALS: BP 116/75
--- NOTE | 2017-10-02 13:01 | NUR ---
Nutrition follow-up: Diet: Low sodium PO intake 100% of most meals Labs reviewed Wt: 199# pt c/o constipation; nursing aware RDN following.
[2017-10-02 14:27] LABS: BASOPHILS 0.3 % (0-2); EOSINOPHILS 0.9 % (0-7); HEMATOCRIT 36.8 % (42.0-54.0); HEMOGLOBIN 11.9 g/dL (13.5-17.5); IMMATURE GRANULOCYTES 0.1 % (0-5); LYMPHOCYTES 6.9 % (15-50); MCH 28.1 pg (26.0-34.0); MCHC 32.3 g/dL (31.0-37.0); MCV 86.8 fL (80.0-100.0); MEAN PLATELET VOLUME 10.2 fL (7.4-10.4); MONOCYTES 7.4 % (2-11); NEUTROPHILS 84.4 % (40-80); PLATELET COUNT 201 10x3/uL (130-400); RBC 4.24 10x6/uL (4.20-6.10); RDW 17.6 % (11.5-14.5); WBC 7.4 10x3/uL (4.8-10.8)
[2017-10-02 16:00] VITALS: BP 125/68
[2017-10-02 22:16] VITALS: BP 123/75
--- NOTE | 2017-10-03 00:15 | NUR ---
SECOND IV SITED TO RIGHT FOREARM TO INFUSE ANTIBIOTICS, DUE TO ROCEPHINE NOT BEING Y SITE COMPATABLE WITH THE DOBUTAMINE DRIP. 22 ANA, FIRST ATTEMPT, PT TOLERATED WELL.
[2017-10-03 01:17] VITALS: BP 113/63
--- NOTE | 2017-10-03 04:08 | NUR ---
RESTING WITH EYES CLOSED, RESPERATIONS EVEN, NO S/S DISTRESS NOTED
[2017-10-03 05:09] LABS: BASOPHILS 0.3 % (0-2); EOSINOPHILS 0.8 % (0-7); HEMATOCRIT 36.4 % (42.0-54.0); IMMATURE GRANULOCYTES 0.4 % (0-5); LYMPHOCYTES 7.5 % (15-50); MCH 28.2 pg (26.0-34.0); MCV 85.4 fL (80.0-100.0); MEAN PLATELET VOLUME 10.1 fL (7.4-10.4); MONOCYTES 7.2 % (2-11); NEUTROPHILS 83.8 % (40-80); PLATELET COUNT 202 10x3/uL (130-400); RBC 4.26 10x6/uL (4.20-6.10); RDW 17.3 % (11.5-14.5); WBC 7.1 10x3/uL (4.8-10.8)
[2017-10-03 05:24] LABS: ANION GAP 14.6 mmol/L (8-16); CALCIUM 9.5 mg/dL (8.5-10.1); CREATININE - SERUM 1.9 mg/dL (0.6-1.3); POTASSIUM - SERUM 3.6 mmol/L (3.5-5.1)
[2017-10-03 05:28] VITALS: BP 113/69
--- NOTE | 2017-10-03 06:01 | NUR ---
RN NOTE: PT IS ALERT AND ORIENTED X 3, SITTING AT THE EDGE OF THE OF BED. PT HAS BUMEX DRIP AND DOBUTAMINE DRIP RUNNING. PT WITH STABLE VS AND NO COMPLAINTS. WILL CONT TO MONITOR.
--- NOTE | 2017-10-03 07:19 | NUR ---
AM ROUNDS- IV GOING OFF, DOBUTAMINE BAG EMPTY, WILL GET ANOTHER BAG OF DOBUTAMINE, EMPTIED PT'S URINAL, PT IN BED, RESP EVEN AND UNLABORED, RT HAND INFUSING BUMEX AT 10 AND DOBUTAMINE AT 13.4. LT FA IV SL. DRESSING NOTED TO RT ANKLE. PT DENIES ANY NEEDS AT THIS TIME. BED LOW AND WHEELS LOCKED, BEDSIDE RAILS X2, CALL LIGHT IN REACH, NAD NOTED, WILL CONTINUE PLAN OF CARE.
[2017-10-03 08:02] VITALS: BP 109/78
--- NOTE | 2017-10-03 09:02 | NUR ---
AM MEDS GIVEN ANTIBIOTIC OINTMENT APPLIED TO RT ANKLE AND COVERED WITH DRESSING. PT IN BED, DENIES ANY NEEDS AT THIS TIME. CALL LIGHT IN REACH, NAD NOTED, WILL CONTINUE PLAN OF CARE.
[2017-10-03 12:33] VITALS: BP 100/56
[2017-10-03 16:26] VITALS: BP 109/63
[2017-10-03 20:16] VITALS: BP 103/68
[2017-10-04 00:02] VITALS: BP 107/62
--- NOTE | 2017-10-04 01:15 | NUR ---
PT SITTING ON SIDE OF BED. READING BOOK. PT HAS NO COMPLAINTS AT THIS TIME. CL IN REACH.
--- NOTE | 2017-10-04 02:43 | NUR ---
PT LYING IN BED WITH HOB UP FOR COMFORT. EYES CLOSED. CHEST RISING AND FALLING. BED IN LOWEST POSITION AND CALL LIGHT WITHIN REACH.
[2017-10-04 04:50] VITALS: BP 113/73
[2017-10-04 06:43] LABS: BASOPHILS 0.1 % (0-2); EOSINOPHILS 1.1 % (0-7); HEMATOCRIT 34.4 % (42.0-54.0); HEMOGLOBIN 11.4 g/dL (13.5-17.5); IMMATURE GRANULOCYTES 0.3 % (0-5); LYMPHOCYTES 8.6 % (15-50); MCH 28.1 pg (26.0-34.0); MCHC 33.1 g/dL (31.0-37.0); MCV 84.9 fL (80.0-100.0); MONOCYTES 7.5 % (2-11); NEUTROPHILS 82.4 % (40-80); PLATELET COUNT 191 10x3/uL (130-400); RBC 4.05 10x6/uL (4.20-6.10); RDW 17.3 % (11.5-14.5); WBC 7.6 10x3/uL (4.8-10.8)
[2017-10-04 06:59] LABS: CALCIUM 9.2 mg/dL (8.5-10.1); CARBON DIOXIDE 24.4 mmol/L (21.0-32.0); POTASSIUM - SERUM 3.4 mmol/L (3.5-5.1)
--- NOTE | 2017-10-04 07:15 | NUR ---
RECEIVED REPORT. ASSUMED CARE OF PATIENT. CALL LIGHT WITHIN REACH. RESTING IN BED WITH EYES OPEN. DOBUTAMINE INFUSING AT 13.4 AND BUMEX DRIP INFUSING AT 10. DENIES PAIN. DENIES NEEDS AT THIS TIME. NO DISTRESS.
[2017-10-04 08:47] VITALS: BP 108/51
--- NOTE | 2017-10-04 11:29 | NUR ---
AT BEDSIDE FOR ROUNDS. NO DISTRESS.
[2017-10-04 12:03] VITALS: BP 116/69
--- NOTE | 2017-10-04 13:00 | NUR ---
BUMEX AND DOBUTAMINE DRIP STOPPED PER NEW ORDERS RECEIVED FROM .
--- NOTE | 2017-10-04 14:30 | NUR ---
PATIENT AMBULATED ONE COMPLETE TOHONO [place] OF UNIT = 250 FT.
[2017-10-04 16:23] VITALS: BP 98/69
[2017-10-04 20:43] VITALS: BP 112/78
--- NOTE | 2017-10-04 21:10 | NUR ---
REST IN BED, AND READ BOOK.
[2017-10-05 00:06] VITALS: BP 109/73
--- NOTE | 2017-10-05 02:51 | NUR ---
REST IN BED, EYE CLOSE, CALL LIGHT IN REACH.
--- NOTE | 2017-10-05 04:06 | NUR ---
REST IN BED, EYE CLOSE, CALL LIGHT IN REACH.
[2017-10-05 05:00] VITALS: BP 100/66
[2017-10-05 06:06] LABS: BASOPHILS 0.1 % (0-2); EOSINOPHILS 1.2 % (0-7); HEMATOCRIT 36.1 % (42.0-54.0); HEMOGLOBIN 11.9 g/dL (13.5-17.5); IMMATURE GRANULOCYTES 0.5 % (0-5); LYMPHOCYTES 5.9 % (15-50); MCH 28.3 pg (26.0-34.0); MEAN PLATELET VOLUME 10.2 fL (7.4-10.4); MONOCYTES 9.9 % (2-11); NEUTROPHILS 82.4 % (40-80); PLATELET COUNT 204 10x3/uL (130-400); RDW 17.5 % (11.5-14.5)
[2017-10-05 06:21] LABS: ANION GAP 17.4 mmol/L (8-16); CALCIUM 9.1 mg/dL (8.5-10.1); CREATININE - SERUM 2.3 mg/dL (0.6-1.3); POTASSIUM - SERUM 4.4 mmol/L (3.5-5.1)
--- NOTE | 2017-10-05 07:15 | NUR ---
REPORT RECEIVED. PT RESTING QUIETLY, RR EVEN AND UNLABORED. PT DENIES NEEDS AT THIS TIME. WILL CTM.
[2017-10-05 08:00] VITALS: BP 103/55
--- NOTE | 2017-10-05 09:32 | NUR ---
CHANGED DRESSING TO RIGHT ANKLE. APPLIED OINTMENT PER ORDERS, COVERED WITH 4X4 AND TEGADERM.
[2017-10-05 12:00] VITALS: BP 119/77
--- NOTE | 2017-10-05 13:30 | EC ---
PATIENT:SALENA MCKEON DATE OF SERVICE: 09/28/17 SEX: M MEDICAL RECORD: [id number] DATE OF : [birth year] LOCATION:D.M2 D.213 AGE OF PATIENT: 82 ADMISSION DATE: 09/28/17 REFERRING PHYSICIAN: INTERPRETING PHYSICIAN: BASHIR MCCOY MD ECHOCARDIOGRAM REPORT ECHO CHARGES 4 ECHO COMPLETE CLINICAL DIAGNOSIS: CHF HX CAD/STENT ECHOCARDIOGRAPHIC MEASUREMENTS (adult normal given) AC root (d.<3.7cm) 3.4 cm LV Septum d (<1.2 cm> 1.9 cm Valve Excursion 1.2 cm LV Septum (systole) 2.3 cm Left Atria (s.<4.0cm> 4.3 cm LVPW d(<1.2cm) 1.8 cm RV (d.<2.3cm) 3.9 cm LVPW (sytole) 2.5 cm LV diastole(<5.6CM) 4.0 cm MV E-F(>70mm/sec) cm LV systole 2.0 cm LVOT Diameter 1.2 cm MV exc.(>10mm) 1.8 cm Est.ejection fraction (50-75%) % Pericardial Effusion N DOPPLER: LVIT cm/sec A 48.0 cm/sec E 163 cm/sec LA cm/sec RVSP 40 mmHg LVOT 75 cm/sec AOP1/2T m/s Asc. Ao 256 cm/sec RVOT 62 cm/sec RA cm/sec PA 150 cm/sec AV Gradient Peak 26.23mmHg AV Mean 15.25mmHg AV Area 1.1 cm MV Gradient Peak 12.29mmHg MV Mean 4.82 mmHg MV Area cm COMMENTS: Industrial Tractor Driver: 2 LUCIANO VELAZQUEZ Batch Plant Operator: 3 Dr. Brewster TAPE# PACS DATE OF SERVICE: 09/29/2017 Adequate 2D echo, color flow and spectral Doppler, and M-Mode. LVH is present. LV internal dimension is mildly globally hypo with EF at lower limits of normal, mildly reduced at 45% to 50%. Aortic valve sclerosis without stenosis by Doppler interrogation. Left atrium is dilated at 4.3 cm. Mitral valve shows no prolapse. Moderate MR. Right-sided chamber is grossly normal. Mild TR. TRANSINT:[id number] Voice Confirmation ID: [id number] DOCUMENT ID: [id number] ECHOCARDIOGRAM REPORT [id number] SALENA MCKEON GREGORY A MD at 1330 CC: [id number] DICTATION DATE: 09/29/17 1529 SUBCONTRACT MANAGER: 09/29/17 1654 ADM IN [id number] [place] [address]
[2017-10-05 17:21] VITALS: BP 114/78
--- NOTE | 2017-10-05 18:44 | NUR ---
PT RESTING QUIETLY, RR EVEN AND UNLABORED, PT EATING DINNER. PT DENIES NEEDS AT THIS TIME. WILL GIVE REPORT ON PT CONDTION FOR THE DAY.
[2017-10-05 21:30] VITALS: BP 108/73
--- NOTE | 2017-10-06 01:52 | NUR ---
PT IN BED WITH HOB UP FOR COMFORT. EYES CLOSED. CHEST RISING AND FALLING. ALERT & ORIENTED. TELEMETRY. ELECTROLYTE PROTOCOL. NO O2. LEFT FA SL. RIGHT FA SL. USES CANE TO AMBULATE. BED IN LOWEST POSIITON AND CALL LIGHT WITHIN REACH.
[2017-10-06 02:05] VITALS: BP 110/73
[2017-10-06 05:47] LABS: BASOPHILS 0.1 % (0-2); EOSINOPHILS 1.6 % (0-7); HEMATOCRIT 36.2 % (42.0-54.0); IMMATURE GRANULOCYTES 0.4 % (0-5); LYMPHOCYTES 9.9 % (15-50); MCH 28.2 pg (26.0-34.0); MCHC 33.1 g/dL (31.0-37.0); MCV 85.2 fL (80.0-100.0); MEAN PLATELET VOLUME 10.2 fL (7.4-10.4); MONOCYTES 7.8 % (2-11); NEUTROPHILS 80.2 % (40-80); PLATELET COUNT 202 10x3/uL (130-400); RBC 4.25 10x6/uL (4.20-6.10); RDW 17.8 % (11.5-14.5); WBC 8.1 10x3/uL (4.8-10.8)
[2017-10-06 06:10] LABS: ANION GAP 16.3 mmol/L (8-16); CALCIUM 9.7 mg/dL (8.5-10.1); CARBON DIOXIDE 25.2 mmol/L (21.0-32.0); CREATININE - SERUM 2.4 mg/dL (0.6-1.3); POTASSIUM - SERUM 4.5 mmol/L (3.5-5.1)
--- NOTE | 2017-10-06 07:32 | NUR ---
AM ROUNDS - PT IS AWAKE AND SITTING ON THE SIDE OF THE BED AT THIS TIME. MONITOR SHOWING SR, HR 80. PT IS ON ROOM AIR. IV TO LEFT FA, SL AND RIGHT FA, SL. PT IS UP AD HARVINDER WITH A CANE. A&O. EP, K+ 4.5. BED AT LOWEST POSITION. CALL RAMOS IN USE/REACH. SIDE RAILS UP X2. NO NEEDS AT THIS TIME. WILL CONTINUE TO MONITOR
[2017-10-06 08:00] VITALS: BP 103/74
[2017-10-06 12:00] VITALS: BP 116/63
--- NOTE | 2017-10-06 13:42 | NUR ---
Patient Name: SALENA MCKEON Admission Status: Elective Accout number: [id number] Admission Date: 09-28-2017 : 1935 Admission Diagnosis:GENERALIZED EDEMA Attending: ANGE PEREZ Current LOS: 8 Anticipated DC Date: 10-06-2017 Planned Disposition: Home Primary Insurance: [employer] MEDICARE PPO or HMO Discharge Planning Comments: * Is the patient Alert and Oriented? Yes 0 * How many steps to enter\exit or inside your home? NONE 0 * PCP DR. GALLEGOS 0 * Pharmacy [facility] [address] * Preadmission Environment Home Alone 0 * ADLs Independent 0 * Equipment Cane 0 * Other Equipment NO MEDICAL EQUIPMENT PROVIDER PREFERENCE 0 * List name and contact numbers for known caregivers / representatives who currently or will assist patient after discharge: WAYLON STUBBS, DTR, 0 * Community resources currently utilized None 0 * Please name any agencies selected above. NONE 0 * Additional services required to return to the preadmission environment? No 0 * Can the patient safely return to the preadmission environment? Yes 0 * Has this patient been hospitalized within the prior 30 days at any hospital? No 0 CM MET WITH PT AND DAUGHTER, WAYLON, IN ROOM TO DISCUSS DISCHARGE PLANNING AND NEEDS. PT REPORTS LIVING AT HOME INDEPENDENTLY AND ALONE. PT HAS A CANE WITH NO MEDICAL EQUIPMENT PROVIDER PREFERENCE. PT HAS NO OUTSIDE SERVICES ASSISTING IN THE HOME. CM DISCUSSED AVAILABILITY OF HOME HEALTH, REHAB SERVICES AND MEDICAL EQUIPMENT. PT DENIES DISCHARGE NEEDS, REPORTS HE HAS HAD HOME HEALTH IN THE PAST AND IS NOT THINKING HE NEEDS THEM AT THIS TIME. PT'S DAUGHTER REPORTS IF PT CHANGES HIS MIND, THEY WILL CALL DR. GALLEGOS IN THE OFFICE. PT REPORTS PLAN TO GO HOME TO [place] WITH HIS DAUGHTER FOR RECOVERY AFTER DISHCHARGE, HIS DAUGHTER WILL PICK HIM UP FOR DISCHARGE HOME. IMPORTANT MESSAGE FROM MEDICARE PROVIDED AND EXPLAINED. CM TO FOLLOW AND ASSIST IF NEEDED. PT DENIES DISCHARGE NEEDS, IS CONSIDERING GOING HOME WITH HIS DAUGHTER TO [place] FOR RECOVERY AFTER HOSPITAL DISCHARGE. Health Therapist: Irwin Degroot
--- NOTE | 2017-10-06 16:46 | NUR ---
PT IS IN BED WITH NO NEEDS AT THIS TIME. PT JUST FINNISED WALKING THE FLOOR WITH HIS . WILL CONTINUE TO MONITOR
[2017-10-06 17:10] VITALS: BP 119/79
--- NOTE | 2017-10-07 00:02 | NUR ---
FINANCE TEACHER AT BED SIDE TO OBTAIN VITALS, WILL CONT TO MONITOR.
[2017-10-07 04:39] VITALS: BP 104/66
[2017-10-07 05:55] LABS: BASOPHILS 0.1 % (0-2); EOSINOPHILS 1.4 % (0-7); HEMATOCRIT 35.5 % (42.0-54.0); HEMOGLOBIN 11.9 g/dL (13.5-17.5); IMMATURE GRANULOCYTES 0.5 % (0-5); LYMPHOCYTES 6.3 % (15-50); MCH 28.7 pg (26.0-34.0); MCHC 33.5 g/dL (31.0-37.0); MCV 85.7 fL (80.0-100.0); MEAN PLATELET VOLUME 10.4 fL (7.4-10.4); NEUTROPHILS 82.7 % (40-80); PLATELET COUNT 208 10x3/uL (130-400); RBC 4.14 10x6/uL (4.20-6.10); RDW 17.6 % (11.5-14.5); WBC 7.9 10x3/uL (4.8-10.8)
[2017-10-07 06:22] LABS: ANION GAP 17.7 mmol/L (8-16); CALCIUM 9.3 mg/dL (8.5-10.1); CARBON DIOXIDE 24.8 mmol/L (21.0-32.0); CREATININE - SERUM 2.4 mg/dL (0.6-1.3); POTASSIUM - SERUM 4.5 mmol/L (3.5-5.1)
--- NOTE | 2017-10-07 06:42 | NUR ---
URINE WAS COLLECTED ORDERED AND SENT TO THE LAB.
[2017-10-07 06:50] LABS: APPEARANCE CLEAR (CLEAR); BILIRUBIN NEGATIVE (NEGATIVE); COLOR YELLOW (YELLOW); GLUCOSE NEGATIVE (NEGATIVE); KETONE NEGATIVE (NEGATIVE); NITRITE NEGATIVE (NEGATIVE); PROTEIN NEGATIVE (NEGATIVE); UROBILINOGEN NORMAL (NORMAL)
[2017-10-07 08:17] LABS: ERYTHROCYTE SEDIMENTATION RATE 14 mm/hr (0-20)
[2017-10-07 08:24] VITALS: BP 101/52
--- NOTE | 2017-10-07 08:25 | NUR ---
AM ROUNDS - PT IS SITTING ON THE SIDE OF THE BED EATING BREAKFAST. PT IS ON ROOM AIR. MONITOR SHOWING SR, HR 75. IV TO LEFT AND RIGHT FA, BOTH SL. PT IS A&O. UP AD HARVINDER. BED AT LOWEST POSITION. CALL RAMOS IN USE/REACH. SIDE RAILS UP X2. NO NEEDS AT THIS TIME. WILL CONTINEUT O MONITOR
--- NOTE | 2017-10-07 10:42 | NUR ---
BLADDER SCAN COMPLETE. SHOWED 553CC/HR. WILL PLACE OAKES
--- NOTE | 2017-10-07 11:33 | NUR ---
PLACED OAKES USING STERILE TECHNIQUE. FLOEY IS DRAINING CLEAR YELLOW AT THIS TIME. STAT LOCK APPLIED TO RIGHT LEG. WILL CONTINEU TO MONITOR
[2017-10-07 11:55] VITALS: BP 114/72
--- NOTE | 2017-10-07 14:01 | NUR ---
Nutrition Follow Up: Chart reviewed. Pt is eating 93% meal avg on an AHA diet. Wt gain noted. +BM 10/06/17. Labs reviewed. Meds noted including Bumex. Rec continue current diet. RD following.
[2017-10-07 15:27] VITALS: BP 115/70
--- NOTE | 2017-10-07 17:27 | NUR ---
PT IN BED AND APPEARS TO BE SLEEPING AT THIS TIME WITH EQUAL AND NON LABORED BREATHING. WILL CONTINEU TO MONITOR
[2017-10-07 20:00] VITALS: BP 110/67
[2017-10-08] VITALS: BP 107/72
[2017-10-08 04:00] VITALS: BP 90/53
--- NOTE | 2017-10-08 05:32 | NUR ---
DAIRY EQUIPMENT MECHANIC AT BEDSIDE TO OBTAIN VITALS, WILL CONTINUE WITH PLAN OF CARE. CALL LIGHT IN REACH.
[2017-10-08 06:20] LABS: ANION GAP 16.2 mmol/L (8-16); CALCIUM 9.2 mg/dL (8.5-10.1); CARBON DIOXIDE 25.1 mmol/L (21.0-32.0); CREATININE - SERUM 2.5 mg/dL (0.6-1.3); POTASSIUM - SERUM 4.3 mmol/L (3.5-5.1)
[2017-10-08 08:54] VITALS: BP 95/63
[2017-10-08 12:55] VITALS: BP 99/62
[2017-10-08 14:40] LABS: BASOPHILS 0.1 % (0-2); EOSINOPHILS 0.7 % (0-7); HEMATOCRIT 36.1 % (42.0-54.0); HEMOGLOBIN 11.8 g/dL (13.5-17.5); IMMATURE GRANULOCYTES 0.6 % (0-5); LYMPHOCYTES 4.3 % (15-50); MCH 28.4 pg (26.0-34.0); MCHC 32.7 g/dL (31.0-37.0); MCV 86.8 fL (80.0-100.0); MEAN PLATELET VOLUME 10.2 fL (7.4-10.4); MONOCYTES 8.4 % (2-11); NEUTROPHILS 85.9 % (40-80); PLATELET COUNT 207 10x3/uL (130-400); RBC 4.16 10x6/uL (4.20-6.10); RDW 17.9 % (11.5-14.5); WBC 8.4 10x3/uL (4.8-10.8)
[2017-10-08 16:01] VITALS: BP 108/63
--- NOTE | 2017-10-08 18:05 | NUR ---
ALERT AND ORIENTED X4. RESTING IN BED. FAMILY AT BEDSIDE. DENIES PAIN OR SOB. CONTINUE PLAN OF CARE AND SAFETY PRECAUTIONS. NO CHANGE.
[2017-10-08 21:58] VITALS: BP 111/69
--- NOTE | 2017-10-09 02:08 | NUR ---
CALL LIGHT IN REACH, WILL CONTINUE WITH PLAN OF CARE. 69 CAF ON TELEMETRY
[2017-10-09 02:20] VITALS: BP 125/69
[2017-10-09 05:18] VITALS: BP 96/61
[2017-10-09 07:07] LABS: ALBUMIN 2.8 g/dL (3.4-5.0); ANION GAP 15.1 mmol/L (8-16); BILIRUBIN - TOTAL 0.9 mg/dL (0.2-1.3); CALCIUM 9.3 mg/dL (8.5-10.1); CARBON DIOXIDE 25.1 mmol/L (21.0-32.0); CREATININE - SERUM 2.3 mg/dL (0.6-1.3); POTASSIUM - SERUM 4.2 mmol/L (3.5-5.1); PROTEIN - SERUM 6.9 g/dL (6.4-8.2)
[2017-10-09 07:11] LABS: BASOPHILS 0.1 % (0-2); EOSINOPHILS 1.2 % (0-7); HEMATOCRIT 35.8 % (42.0-54.0); HEMOGLOBIN 11.8 g/dL (13.5-17.5); IMMATURE GRANULOCYTES 0.4 % (0-5); LYMPHOCYTES 7.6 % (15-50); MCH 28.5 pg (26.0-34.0); MCV 86.5 fL (80.0-100.0); MEAN PLATELET VOLUME 10.6 fL (7.4-10.4); MONOCYTES 10.2 % (2-11); NEUTROPHILS 80.5 % (40-80); PLATELET COUNT 207 10x3/uL (130-400); RBC 4.14 10x6/uL (4.20-6.10); RDW 17.9 % (11.5-14.5); WBC 7.5 10x3/uL (4.8-10.8)
[2017-10-09 08:38] VITALS: BP 106/62
--- NOTE | 2017-10-09 08:54 | NUR ---
PT AWAKE, ALERT, ORIENTED, SITTING ON SIDE OF BED, STATES HE IS HAVING A DIFFICULT TIME BREATHING WHEN HE LAYS DOWN. PT IS ALSO ASKING FOR A SUPPOSITORY FOR CONSTIPATION, STATES HE HAS NOT HAD A BM X 3 DAYS. PT STATES HE DOES NOT FEEL HE IS MAKING GOOD PROGRESS AT THIS TIME. NO NEEDS AT THIS TIME. CONTINUE TO MONITOR CLOSELY. BED LOW, CALL LIGHT IN REACH, SIDE RAILS X 2, HOB 25-30 DEGREES. PT STATES ALSO THAT HIS STOMACH IS "RAW" FROM ALL THE MEDICATION AND IS ASKING FOR MILK.
[2017-10-09 12:00] VITALS: BP 99/68
[2017-10-09] MEDS ORDERED: JANUVIA50 MG PO (12:05)
[2017-10-09] MEDS ORDERED: BUMEX 1 MG TAB1 MG PO (12:09)
[2017-10-09] MEDS ORDERED: ALDACTONE25 MG PO (12:11)
--- NOTE | 2017-10-09 13:24 | NUR ---
Nutrition Follow Up: Pt is eating 75% meal avg on an AHA diet. Wt stable. +BM 10/06/17. Labs reviewed. Meds noted including Bumex. Rec continue current diet. RD following.
--- NOTE | 2017-10-09 20:00 | NUR ---
WHEN GIVING PT RECTAL SUPPOSITORY, I NOTICED THAT I COULD FEEL STOOL AND PT COULD NOT GET IT OUT. DR. FINNEGAN WAS ON THE FLOOR AND I ASKED HIM HIS OPINION. HE STATED I COULD DIGITALLY REMOVE SOME IF THE PT WAS OK WITH IT. PT STATED THAT HE WAS AND I GOT OUT A MODERATE AMOUNT OF HARD LIGHT BROWN STOOL.
--- NOTE | 2017-10-09 20:09 | NUR ---
PT IN BED RESTING QUIETLY. BREATHING EVEN AND UNLABORED. BED IN LOW POSITION, CALL LIGHT WITHIN REACH.
[2017-10-09 22:40] VITALS: BP 107/71
[2017-10-10 02:08] VITALS: BP 100/66
[2017-10-10 06:37] VITALS: BP 84/86
[2017-10-10 06:49] LABS: BASOPHILS 0.1 % (0-2); EOSINOPHILS 0.9 % (0-7); HEMATOCRIT 36.9 % (42.0-54.0); HEMOGLOBIN 12.4 g/dL (13.5-17.5); IMMATURE GRANULOCYTES 0.6 % (0-5); LYMPHOCYTES 9.4 % (15-50); MCHC 33.6 g/dL (31.0-37.0); MCV 86.4 fL (80.0-100.0); MEAN PLATELET VOLUME 10.2 fL (7.4-10.4); MONOCYTES 9.8 % (2-11); NEUTROPHILS 79.2 % (40-80); PLATELET COUNT 231 10x3/uL (130-400); RBC 4.27 10x6/uL (4.20-6.10); RDW 18.1 % (11.5-14.5); WBC 8.7 10x3/uL (4.8-10.8)
[2017-10-10 07:05] LABS: ANION GAP 17.1 mmol/L (8-16); BILIRUBIN - TOTAL 0.99 mg/dL (0.2-1.3); CALCIUM 9.1 mg/dL (8.5-10.1); CARBON DIOXIDE 24.3 mmol/L (21.0-32.0); CREATININE - SERUM 2.3 mg/dL (0.6-1.3); POTASSIUM - SERUM 4.4 mmol/L (3.5-5.1); PROTEIN - SERUM 7.4 g/dL (6.4-8.2)
--- NOTE | 2017-10-10 07:46 | NUR ---
PATIENT ALERT/ORIENT X4. RIGHT FOREARM SALINE LOCK. OAKES CATH HAS PINK TINGE UNRINE IN BAG. TELEMETRY INTACK. PATIENT HAS A PACEMAKER.
[2017-10-10 08:00] VITALS: BP 124/61
[2017-10-10 12:00] VITALS: BP 98/53
--- NOTE | 2017-10-10 12:57 | NUR ---
IN ROOM WITH PTIENT. HELPING PATIENT WITH A BED BATH
--- NOTE | 2017-10-10 13:10 | NUR ---
DR RENEE INTO SEE PATIENT. NEW ORDERS RECEIVED
--- NOTE | 2017-10-10 14:18 | NUR ---
PATIENT HAS MULTIPLE FAMILY MEMBERS VISITING IN ROOM. VOICES NO NEEDS. CALL LIGHT WITHIN REACH
[2017-10-10 16:00] VITALS: BP 142/85
--- NOTE | 2017-10-10 18:23 | NUR ---
OAKES CATH EMPTIED. 560CC OF PINK TINGED URINE IN BAG
--- NOTE | 2017-10-10 20:00 | NUR ---
PT RESTING IN BED WITH NO DISTRESS. ALERT/ORIENTED. NONLABORED RESPIRATIONS ON ROOM AIR. OAKES PATENT TO BEDSIDE DRAIN BAG. SALINE LOCK TO RFA. NO NEEDS AT THIS TIME. CPOC.
[2017-10-10 21:07] VITALS: BP 107/61
--- NOTE | 2017-10-10 21:52 | NUR ---
BEDTIME MEDS GIVEN.
[2017-10-11 00:42] VITALS: BP 130/70
[2017-10-11 04:46] VITALS: BP 105/69
[2017-10-11 06:23] LABS: BASOPHILS 0.1 % (0-2); EOSINOPHILS 1.3 % (0-7); HEMATOCRIT 36.7 % (42.0-54.0); HEMOGLOBIN 11.7 g/dL (13.5-17.5); IMMATURE GRANULOCYTES 0.4 % (0-5); LYMPHOCYTES 6.4 % (15-50); MCH 28.2 pg (26.0-34.0); MCHC 31.9 g/dL (31.0-37.0); MEAN PLATELET VOLUME 10.3 fL (7.4-10.4); MONOCYTES 10.6 % (2-11); NEUTROPHILS 81.2 % (40-80); PLATELET COUNT 215 10x3/uL (130-400); RBC 4.15 10x6/uL (4.20-6.10); RDW 18.3 % (11.5-14.5); WBC 6.7 10x3/uL (4.8-10.8)
[2017-10-11 06:28] LABS: MCV 88.4 fL (80.0-100.0)
[2017-10-11 06:45] LABS: ALBUMIN 2.8 g/dL (3.4-5.0); ANION GAP 12.9 mmol/L (8-16); BILIRUBIN - TOTAL 0.7 mg/dL (0.2-1.3); CALCIUM 9.2 mg/dL (8.5-10.1); CARBON DIOXIDE 28.1 mmol/L (21.0-32.0); CREATININE - SERUM 2.4 mg/dL (0.6-1.3); PROTEIN - SERUM 6.9 g/dL (6.4-8.2)
[2017-10-11 06:47] LABS: ALBUMIN 2.9 g/dL (3.4-5.0); ANION GAP 13.6 mmol/L (8-16); CARBON DIOXIDE 28.5 mmol/L (21.0-32.0); CREATININE - SERUM 2.5 mg/dL (0.6-1.3); PHOSPHOROUS 5.4 mg/dL (2.5-4.9); POTASSIUM - SERUM 4.1 mmol/L (3.5-5.1)
--- NOTE | 2017-10-11 07:30 | NUR ---
REPORT RECEIVED. PT RESTING QUIETLY, RR EVEN AND UNLABORED. OAKES CATHETER DRAINING PINK TINGED URINE. PT DENIES NEEDS AT THIS TIME, WILL CTM.
[2017-10-11 08:00] VITALS: BP 119/77
--- NOTE | 2017-10-11 08:50 | NUR ---
DRESSING CHANGED ON RIGHT ANKLE. 2 SMALL SORES NOTED ON MEDIAL ASPECT OF ANKLE. OINTMENT APPLIED AND COVERED WITH 2X2S AND TEGADERM.
--- NOTE | 2017-10-11 08:50 | NUR ---
SPOKE TO DR. RENEE REGARDING IV FLUIDS. GAVE TELEPHONE ORDER TO CONTINUE FLUIDS SINCE THE ORDER WAS FOR A ONE TIME DOSE. WILL CALL PHARMACY REGARDING FLUIDS AND HANG WHEN AVIALABLE.
[2017-10-11 12:00] VITALS: BP 104/62
--- NOTE | 2017-10-11 13:38 | NUR ---
PT IN BED RESTING WITH EYES CLOSED. IV TO RIGHT FA SALINE LOCKED. OAKES INTACT WITH PINK TINGED URINE. HEART MONITOR INTACT WITH FLUTTER. NO DISTRESS NOTED WILL CONT TO MONITOR.
[2017-10-11 16:00] VITALS: BP 109/67
[2017-10-11 19:21] LABS: CARBON DIOXIDE 26.3 mmol/L (21.0-32.0); CREATININE - SERUM 2.4 mg/dL (0.6-1.3); POTASSIUM - SERUM 4.3 mmol/L (3.5-5.1)
--- NOTE | 2017-10-11 19:33 | NUR ---
RESUMED CARE OF PT, LYING IN BED RESPIRATIONS EVEN AND UNLABORED ON ROOM AIR. 69 CAF ON TELEMETRY. RIGHT FOREARM SALINE LOCKED. OAKES TO GRAVITY. CALL LIGHT IN REACH. WILL CONTINUE TO MONITOR. SEE NURSE ASSESSMENT.
[2017-10-11 20:18] VITALS: BP 96/60
--- NOTE | 2017-10-11 23:13 | NUR ---
LYING IN BED WITH EYES CLOSED, CALL LIGHT IN REACH. WILL CONTINUE TO MONITOR.
[2017-10-12 00:33] VITALS: BP 107/71
[2017-10-12 05:23] VITALS: BP 105/60
[2017-10-12 05:41] LABS: BASOPHILS 0.1 % (0-2); EOSINOPHILS 1.3 % (0-7); HEMATOCRIT 36.6 % (42.0-54.0); HEMOGLOBIN 11.7 g/dL (13.5-17.5); IMMATURE GRANULOCYTES 0.7 % (0-5); LYMPHOCYTES 5.5 % (15-50); MCH 28.3 pg (26.0-34.0); MCV 88.6 fL (80.0-100.0); MEAN PLATELET VOLUME 10.2 fL (7.4-10.4); MONOCYTES 9.1 % (2-11); NEUTROPHILS 83.3 % (40-80); PLATELET COUNT 206 10x3/uL (130-400); RBC 4.13 10x6/uL (4.20-6.10); WBC 7.2 10x3/uL (4.8-10.8)
[2017-10-12 05:56] LABS: ALBUMIN 2.8 g/dL (3.4-5.0); ANION GAP 14.7 mmol/L (8-16); BILIRUBIN - TOTAL 0.76 mg/dL (0.2-1.3); CALCIUM 8.8 mg/dL (8.5-10.1); CARBON DIOXIDE 28.4 mmol/L (21.0-32.0); CREATININE - SERUM 2.3 mg/dL (0.6-1.3); POTASSIUM - SERUM 4.1 mmol/L (3.5-5.1)
[2017-10-12 08:00] VITALS: BP 88/60
--- NOTE | 2017-10-12 09:37 | NUR ---
ASSESSMENTY DONE. DENIES NEEDS
--- NOTE | 2017-10-12 09:48 | NUR ---
PATIENT IS RESTING AT THIS TIME, NAD NOTED. CHEST RISES AND FALLS EQUALLY. BED LOW AND LOCKED. CALL LIGHT IN REACH. CPOC
[2017-10-12] MEDS ORDERED: PROSCAR5 MG PO (11:13)
[2017-10-12 12:00] VITALS: BP 107/67
--- NOTE | 2017-10-12 12:18 | HP ---
PATIENT: SALENA ERVIN MEDICAL RECORD: [id number] ACCOUNT: [id number] LOCATION:[address] : [birth year] ADMISSION DATE: 09/28/17 HISTORY AND PHYSICAL EXAMINATION HISTORY OF PRESENT ILLNESS: Mr. Ervin is a nice 82-year-old male that presents to the clinic today with increasing weight, shortness of breath, edema, and orthopnea, has a known history of heart failure and COPD, was recently placed in observation for short round of IV Bumex, helped him a little bit. He was seen here in the office by Dr. Vega on Thursday and given a shot of Lasix which helped, but his weight is up 5 more pounds today. He is orthopneic. He has edema up into his lower abdomen. He is going to require admission. He has not had a recent echo, he does not think. He normally sees Dr. Avalos at all for his heart failure. PAST MEDICAL HISTORY: Significant for known atrial fibrillation, DVT, hyperlipidemia, hypertension, chronic bronchitis, type 2 diabetes, hypothyroidism, migraines, presence of lupus antigen, stage IV renal insufficiency, diabetes with neurological manifestations, restless leg syndrome, vitamin D deficiency, and hypothyroidism. PAST SURGICAL HISTORY: Include an appendectomy, hip replacement, skin cancers removed, PTCA 2016, knee surgery, cyst, rotator cuff, EVIE with ablation in 2012. ALLERGIES OR INTOLERANCES: INCLUDE VYTORIN. HOME MEDICATIONS: Include furosemide 20 mg 2 in the morning, 2 in the evening if needed, levothyroxine 0.125 every day, glimepiride 4 mg a day, citalopram 10 mg a day, Flomax 0.4 daily, albuterol nebulized treatments, Januvia 50 mg a day, amiodarone 200 mg a day, Advair Diskus 250/50 one puff b.i.d., Singulair 10 mg a day, an aspirin baby 81 mg a day, Eliquis 5 twice a day, Mucinex, vitamin D, and allergy shots. FAMILY HISTORY: Noncontributory. SOCIAL HISTORY: The patient does not smoke. He does not drink. He is . He is the [place] [facility]. REVIEW OF SYSTEMS: He denies fever, chills, sweats. He does complain of fatigue, worsening shortness of breath. No real chest pain, orthopnea or edema. PHYSICAL EXAMINATION: GENERAL: He appears mildly to moderately ill. He is in no distress. HEENT: The sclerae are nonicteric. NECK: Soft and supple. HEART: Irregularly regular with controlled rate. LUNGS: Clear. ABDOMEN: Soft. EXTREMITIES: Lower extremities reveal pitting edema up to the thighs. NEUROLOGIC: Without any gross focal deficits. IMPRESSION: 1. Congestive heart failure, worsening. 2. Chronic obstructive pulmonary disease. 3. Diabetes with neurologic complications. HISTORY AND PHYSICAL [id number] SALENA ERVIN 4. Hypothyroidism. 5. Chronic atrial fibrillation, anticoagulation. PLAN: Admit, Bumex drip, Dobutrex drip, check an echo. Cardiology consultation. Follow BNPs. See orders for plan. ON WRONG ADMISSION, MOVED 09/29/17 [place] TRANSINT:[id number] Voice Confirmation ID: [id number] DOCUMENT ID: [id number] OLY GALLEGOS DO at 1218 CC: [id number] DICTATION DATE: 09/28/171812 JEWEL SUPERVISOR: 09/28/17 1858 ADM IN [address] [place] [address]
--- NOTE | 2017-10-12 13:20 | NUR ---
DC GIVEN TO PT AND DAUGHTER
--- NOTE | 2017-10-12 13:35 | NUR ---
DC HOME PER PERSONAL CAR
--- NOTE | 2017-10-12 14:20 | NUR ---
Patient Name: SALENA MCKEON Encounter No: [id number] : 1935 Primary Insurance: [employer] MEDICARE PPO or HMO Anticipated DC Date: 10-06-2017 Planned Disposition: Home LATE ENTRY: DCP follow-up note: CM RECEIVED DISCHARGE ORDER, MET WITH PT IN ROOM TO DISCUSS DISCHARGE NEEDS AND PLANNING. CM DISCUSSED AVAILABILITY OF HOME HEALTH, REHAB SERVICES AND MEDICAL EQUIPMENT. PT DENIES DISCHARGE NEEDS, HE THINKS THAT HOUSECAL NURSE PRACTITIONER WILL BE ENOUGH AT THIS TIME. DAUGHTER TO TRANSPORT HOME AT DISCHARGE. PT HAS DECIDED HE WILL BE STAYING AT HIS HOME AFTER DISCHARGE AND THAT HIS DAUGHTERS ARE COMING TO STAY WITH HIM FOR A SHORT TIME. IMPORTANT MESSAGE FROM MEDICARE PROVIDED AND EXPLAINED. Irwin Degroot, CASE MANAGEMENT
[2017-10-26] MEDS ORDERED: FUROSEMIDE20 MG PO (07:12)
== END 2017-10-12 13:36 | disposition home or self-care (01) | DRG 291 ==
LOC: D.M2 18:45
PROVIDERS: Emergency Medicine; Family Medicine; Internal Medicine; ADMIT Emergency Medicine
DX: I13.0 Hypertensive heart and chronic kidney disease with heart failure and stage 1 through stage 4 chronic kidney disease, or unspecified chronic kidney disease (principal); I50.23 Acute on chronic systolic (congestive) heart failure; J98.11 Atelectasis; J44.1 Chronic obstructive pulmonary disease with (acute) exacerbation; N18.9 Chronic kidney disease, unspecified; I50.9 Heart failure, unspecified; I48.2 Chronic atrial fibrillation; I25.10 Atherosclerotic heart disease of native coronary artery without angina pectoris; Z95.5 Presence of coronary angioplasty implant and graft; E11.65 Type 2 diabetes mellitus with hyperglycemia; I08.1 Rheumatic disorders of both mitral and tricuspid valves; E03.9 Hypothyroidism, unspecified; N40.1 Benign prostatic hyperplasia with lower urinary tract symptoms; R33.8 Other retention of urine

== ENCOUNTER 2017-10-26 07:26 | Outpatient (CLI) | payer MEDICARE ==
[~2017-10-26] VITALS: Ht 182.9 cm; Wt 92.3 kg
[~2017-10-26 07:26] MED LIST changes: +ALDACTONE25 MG PO; +BUMEX 1 MG TAB1 MG PO; +PROSCAR5 MG PO
[2017-10-26 07:41] VITALS: BP 145/67; Ht 182.9 cm; Wt 92.3 kg
[2017-10-26 07:48] LABS: ANION GAP 12.7 mmol/L (8-16); CARBON DIOXIDE 26.2 mmol/L (21.0-32.0); CREATININE - SERUM 2.3 mg/dL (0.6-1.3); POTASSIUM - SERUM 4.9 mmol/L (3.5-5.1)
--- NOTE | 2017-10-26 07:49 | NUR ---
0730 IV STARTED TO LEFT FOREARM WITH 22G X 1 STICK, BLOOD DRAWN AND SENT TO LAB. WATER SERVED PER T REQUEST. STATES DOES NOT WANT BREAKFAST TRAY ORDERED AT THIS TIME. URINALS X2 TO ROOM. CALL LIGHT IN REACH.
--- NOTE | 2017-10-26 09:05 | NUR ---
0832 INFUSION STARTED VIA PUMP WITH BUMEX INFUSING AT 1MG PER HOUR AND DUBUTREX INFUSING AT 13.8 ML PER HOUR VIA PUMP FOR DOSING OF 5MCG/KG/MIN, URINALS X2 AT BEDSIDE. STARTING VS- BP 113/67, HR 72, ATRIAL FIBRILLATION. PT DENIES ANY C/O. URINALS X 2 AT BEDSIDE. CALL LIGHT IN REACH. DAUGHTER AT BEDSIDE.
--- NOTE | 2017-10-26 09:11 | NUR ---
0908 DR VALENZUELA NOTIFIED OF CREATININE OF 2.3, NO NEW ORDERS RECEIVED.
--- NOTE | 2017-10-26 10:16 | NUR ---
BUMEX INFUSING AT 10 CC ON PUMP AND DOBUTAMINE INFUSING AT 13.8 CC. VSS WITH PAIN OR NEEDS DENIED
--- NOTE | 2017-10-26 11:03 | NUR ---
BUMEX INFUSING AT 10 CC AND DOBUTAMINE INFUSING AT 13.8 PATIENT DENIED PAIN OR NEEDS FAMILY AT SIDE
--- NOTE | 2017-10-26 11:36 | NUR ---
VOIDS 600 CC CLEAR YELLOW URINE TO COLLECTION.
--- NOTE | 2017-10-26 11:44 | NUR ---
LUNCH SERVED TO BEDSIDE PATIENT DENIED PAIN OR NEEDS AT THIS TIME VSS BUMEX AND DOBUTAMINE CONTINUE TO INFUSE
--- NOTE | 2017-10-26 12:15 | NUR ---
WATCHING TV IN ROOM WITH NO COMPLAINTS. INFUSION CONTINUES ORDERED VSS
--- NOTE | 2017-10-26 13:05 | NUR ---
RESTING QUIETLY WITH EYES CLOSED NO DISTRESS. INFUSION CONTINUES
--- NOTE | 2017-10-26 14:00 | NUR ---
NO COMPLAINTS VSS WITH INFUSING GOING ORDERED
--- NOTE | 2017-10-26 14:51 | NUR ---
600 CC URINE EMPTIED TO COLLECTION
--- NOTE | 2017-10-26 16:14 | NUR ---
550 CC URINE EMPTIED TO COLLECTION. PATIENT REMAINS STABLE WITH NO COMPLAINTS.
--- NOTE | 2017-10-26 16:46 | NUR ---
INFUSION COMPLETE WITH PIV REMOVED. VSS WITH NO COMPLAINTS. WEIGHT OF 198.4 PATIENT UP TO GET DRESSED FOR DISCHARGE HOME
--- NOTE | 2017-10-26 17:08 | NUR ---
TOTAL OUTPUT OF 3000 CC URINE WITH WEIGHT LOSS FROM 203LBS TO 198.4 LBS. NO DISTRESS LEFT VIA WC TO PARKING FOR TRANSPORT HOME
== END 2017-10-26 17:11 | disposition home or self-care (01) ==
LOC: D.CATH 07:26
PROVIDERS: Internal Medicine Interventional Cardiology
DX: I50.9 Heart failure, unspecified (principal); I42.9 Cardiomyopathy, unspecified

== ENCOUNTER 2017-11-17 06:48 | Outpatient (CLI) | payer MEDICARE ==
[~2017-11-17] VITALS: Ht 182.9 cm; Wt 93.7 kg
[2017-11-17 07:21] VITALS: BP 98/61; Ht 182.9 cm; Wt 93.7 kg
--- NOTE | 2017-11-17 07:40 | NUR ---
BUMEX GTT STARTED AT 1MG/HR TO LEFT FA. DOBUTAMINE GTT STARTED AT 5MCG/KG/MIN WHICH IS 14.1ML/HR. VITAL SIGNS STABLE. CALL LIGHT WITHIN REACH.
[2017-11-17 07:41] LABS: BASOPHILS 0.1 % (0-2); EOSINOPHILS 1.1 % (0-7); HEMATOCRIT 37.9 % (42.0-54.0); HEMOGLOBIN 12.3 g/dL (13.5-17.5); IMMATURE GRANULOCYTES 0.4 % (0-5); LYMPHOCYTES 6.8 % (15-50); MCH 28.1 pg (26.0-34.0); MCHC 32.5 g/dL (31.0-37.0); MCV 86.7 fL (80.0-100.0); MEAN PLATELET VOLUME 9.8 fL (7.4-10.4); MONOCYTES 7.5 % (2-11); NEUTROPHILS 84.1 % (40-80); PLATELET COUNT 222 10x3/uL (130-400); RBC 4.37 10x6/uL (4.20-6.10); RDW 16.8 % (11.5-14.5); WBC 9.1 10x3/uL (4.8-10.8)
[2017-11-17 08:14] LABS: ALBUMIN 3.5 g/dL (3.4-5.0); BILIRUBIN - TOTAL 0.96 mg/dL (0.2-1.3); CALCIUM 9.4 mg/dL (8.5-10.1); CARBON DIOXIDE 25.5 mmol/L (21.0-32.0); CREATININE - SERUM 2.4 mg/dL (0.6-1.3); POTASSIUM - SERUM 4.5 mmol/L (3.5-5.1); PROTEIN - SERUM 7.8 g/dL (6.4-8.2)
--- NOTE | 2017-11-17 09:30 | NUR ---
VOIDED 150CC OF CLEAR YELLOW URINE. BREAKFAST TRAY SERVED, FEEDING SELF. VSS. WILL CONTINUE TO MONITOR.
--- NOTE | 2017-11-17 10:45 | NUR ---
VOIDED 225CC OF CLEAR YELLOW URINE. VSS. CALL LIGHT WITHIN REACH.
--- NOTE | 2017-11-17 12:10 | NUR ---
400CC OF CLEAR YELLOW URINE VOIDED. VSS. NO C/O AT THIS TIME. WILL CONTINUE TO MONITOR CLOSELY.
--- NOTE | 2017-11-17 13:00 | NUR ---
LUNCH TRAY SERVED, FEEDING SELF. VSS. CALL LIGHT WITHIN REACH.
--- NOTE | 2017-11-17 13:51 | NUR ---
VOIDED 450CC OF CLEAR YELLOW URINE. VSS. WILL CONTINUE TO MONITOR.
--- NOTE | 2017-11-17 15:00 | NUR ---
VOIDED 450CC OF CLEAR YELLOW URINE.
--- NOTE | 2017-11-17 15:40 | NUR ---
GTTS TURNED OFF PER ORDERS. WILL MONITOR.
--- NOTE | 2017-11-17 16:00 | NUR ---
LEFT FA PIV D/C'D WITH CATHETER INTACT. UP TO BEDSIDE TO GET DRESSED.
--- NOTE | 2017-11-17 16:25 | NUR ---
VOIDED 1675CC TOTAL OF URINE. FINAL WEIGHT WAS 202.8.
--- NOTE | 2017-11-17 16:35 | NUR ---
TAKEN OUT VIA WHEELCHAIR BY CATH RIG SUPERVISOR. LEFT FACILITY WITH FAMILY AND ALL PERSONAL BELONGINGS.
== END 2017-11-17 16:35 | disposition home or self-care (01) ==
LOC: D.CATH 06:48
PROVIDERS: Internal Medicine Interventional Cardiology
DX: I50.9 Heart failure, unspecified (principal); I42.9 Cardiomyopathy, unspecified

== ENCOUNTER 2017-11-27 07:09 | Outpatient (CLI) | payer MEDICARE ==
[~2017-11-27] VITALS: Ht 182.9 cm; Wt 95.2 kg
[2017-11-27 07:28] VITALS: BP 115/64; Ht 182.9 cm; Wt 95.2 kg
[2017-11-27 08:07] LABS: ANION GAP 16.4 mmol/L (8-16); CALCIUM 9.2 mg/dL (8.5-10.1); CARBON DIOXIDE 23.3 mmol/L (21.0-32.0); CREATININE - SERUM 2.3 mg/dL (0.6-1.3); POTASSIUM - SERUM 4.7 mmol/L (3.5-5.1)
== END 2017-11-27 16:40 | disposition home or self-care (01) ==
LOC: D.CATH 07:09
PROVIDERS: Internal Medicine Interventional Cardiology
DX: I50.9 Heart failure, unspecified (principal); I42.9 Cardiomyopathy, unspecified

== ENCOUNTER 2017-12-30 04:54 | Inpatient (IN) | payer MEDICARE ==
[~2017-12-30] VITALS: Ht 182.9 cm; Wt 109.8 kg
--- NOTE | ~2017-12-30 | EC ---
PATIENT:SALENA MCKEON DATE OF SERVICE: 12/30/17 SEX: M MEDICAL RECORD: [id number] DATE OF : [birth year] LOCATION:D.M2 D.213 AGE OF PATIENT: 82 ADMISSION DATE: 12/30/17 REFERRING PHYSICIAN: INTERPRETING PHYSICIAN: PEACE VALENZUELA MD ECHOCARDIOGRAM REPORT ECHO CHARGES 4 ECHO COMPLETE CLINICAL DIAGNOSIS: ECHOCARDIOGRAPHIC MEASUREMENTS (adult normal given) AC root (d.<3.7cm) 3.3 cm LV Septum d (<1.2 cm> 2.1 cm Valve Excursion 0.7 cm LV Septum (systole) 2.6 cm Left Atria (s.<4.0cm> 4.6 cm LVPW d(<1.2cm) 2.2 cm RV (d.<2.3cm) 2.4 cm LVPW (sytole) 3.0 cm LV diastole(<5.6CM) 3.9 cm MV E-F(>70mm/sec) cm LV systole 1.8 cm LVOT Diameter 2.0 cm MV exc.(>10mm) cm Est.ejection fraction (50-75%) % Pericardial Effusion N DOPPLER: LVIT cm/sec A 51.0 cm/sec E 171 cm/sec LA cm/sec RVSP 48.4 mmHg LVOT 73.0 cm/sec AOP1/2T m/s Asc. Ao 284 cm/sec RVOT 64.0 cm/sec RA cm/sec PA 79.0 cm/sec AV Gradient Peak 32.3 mmHg AV Mean 18.0 mmHg AV Area 0.6 cm MV Gradient Peak 10.0 mmHg MV Mean 3.5 mmHg MV Area cm COMMENTS: Low Vision Therapist: 1 KATLIN WHITT Investment Banking Associate: Sandie Rascon TAPE# PACS DATE OF SERVICE: 01/04/2018 FINDINGS: 1. Left ventricular chamber size is within normal limits. Left ventricular systolic function is overall normal with approximately 50%. 2. Left atrium is enlarged at 4.6 cm. Right atrium and right ventricle chamber sizes are as well mildly dilated. 3. Valvular structures; aortic valve demonstrates moderate calcific aortic stenosis, valve area calculates to 0.6 cm-squared, gradient of 32 mm across the valve. The remaining valvular structures have normal structure and motion. ECHOCARDIOGRAM REPORT [id number] SALENA MCKEON 4. Doppler interrogation reveals else smith moderate mitral regurgitation, moderate tricuspid regurgitation, no other valvular insufficiency or stenosis. Pulmonary systolic pressure is elevated, estimated 48 mmHg. 5. No evidence of pericardial effusion or left ventricular thrombus. TRANSINT:[id number] Voice Confirmation ID: [id number] DOCUMENT ID: [id number] PEACE VALENZUELA MD at 1147 CC: [id number] DICTATION DATE: 01/04/18 1009 DATA RECOVERY PLANNER: 01/04/18 1126 DIS IN 01/14/18 [id number] [place] [address]
--- NOTE | ~2017-12-30 | HEMODYNAMI ---
PATIENT:SALENA MCKEON MEDICAL RECORD: [id number] : 31 [facility] [place] [id number] ADMISSION DATE: 12/30/17 Generatedon:12/31/20170:06 Patient name: SALENA MCKEON Patient #: [id number] : 1935 Date of study: 12/30/2017 Page: Of Hemodynamic Procedure Report Patient Data Patient Demographics Procedure consent was obtained First Name: SALENA Gender: Male Last Name: LINDA : 1935 [facility] Initial: TAMIR Age: 82 year(s) Patient #: [id number] Race: Unknown SSN: [id number] Additional ID: [id number] Contact details Address: [address] [place] [address] State: [place] City: [place] Zip code: [address] Past Medical History Allergies Allergen Reaction Date Comments Reported Statins 12/30/2017 Admission Admission Data Admission Date: 12/30/2017 Admission Time: 7:11 Room #: [facility] Weight (lbs.): 200 Weight (kg.): 90.72 Procedure Procedure Types Cath Procedure Peripheral Cath Diagnostic Procedure Cath Peripheral Abd/Extremity Visceral/Mesenteric Mesenteric Arteriogram (Abd Artery) Procedure Description Procedure Date Procedure Date: 12/30/2017 Procedure Start Time: 22:19 Procedure Staff Name Function Ev Guillen RT Educational Sign Language Interpreter Ev Guillen RT Monitor Rafia Trent RN Nurse Ulises Aguilar RT Scrub Edil Carreno MD Performing Physician Procedure Data Cath Procedure Fluoroscopy Diagnostic fluoroscopy Total fluoroscopy Time: time: 13.7 min 13.7 min Diagnostic fluoroscopy Total fluoroscopy dose: dose: 2916 mGy 2916 mGy Contrast Material Contrast Material Type Amount (ml) Isovue 300 190 Entry Location Entry Primary Successful Side Size Upsize Upsize Entry Closure Succ essful Closure Location (Fr) 1 (Fr) 2 (Fr) Remarks Device Remarks Femoral Right 5 Fr artery Femoral Angio-VIP artery 6Fr Diagnostic catheters Device Type Used For End Catheter Placement Angiodynamics SOS OMNI 2 NON B 5FR 65CM catheter ([id number]) Procedure Medications Medication Administration Route Dosage Lidocaine 1% added to field 20 Oxygen NC 3 l/min Heparin Flush Bag added to field 3 bags (1000units/500ml NS) Versed I.V. 0.5 mg Fentanyl I.V. 25 mcg Hemodynamics Rest Heart Rate: 29 (bpm) Snapshots Pre Cath Intra NCS Post Cath Vital Signs Time Heart Resp SPO2 etCO2 NIBP Rhythm Pain Sedation Rate (ipm) (%) (mmHg) (mmHg) Status Level (bpm) 22:17:48 85 18 95 27.3 113/72(92) NSR 0 (11) 10(A) , No pain 22:21:56 86 18 94 25.8 120/73(99) NSR 0 (11) 10(A) , No pain 22:26:04 81 18 94 24.3 114/78(91) NSR 0 (11) 10(A) , No pain 22:30:14 79 17 92 25.8 102/67(88) NSR 0 (11) 10(A) , No pain 22:34:19 88 18 90 25 107/67(85) NSR 0 (11) 10(A) , No pain 22:38:25 82 20 93 25 104/72(83) NSR 0 (11) 10(A) , No pain 22:42:31 85 17 92 25 104/68(87) NSR 0 (11) 10(A) , No pain 22:46:37 84 19 90 25 102/67(82) NSR 0 (11) 10(A) , No pain 22:50:42 78 17 93 30.3 94/63(75) NSR 0 (11) 10(A) , No pain 22:54:52 86 19 93 25 102/71(81) NSR 0 (11) 10(A) , No pain 22:58:58 82 19 91 17.4 95/63(77) NSR 0 (11) 10(A) , No pain 23:03:02 89 23 90 20.5 93/65(82) NSR 0 (11) 10(A) , No pain 23:07:04 83 20 90 25.8 98/64(79) NSR 0 (11) 10(A) , No pain 23:11:07 81 19 89 19 98/65(80) NSR 0 (11) 10(A) , No pain 23:15:11 77 20 90 20.5 94/64(75) NSR 0 (11) 10(A) , No pain 23:19:13 83 16 90 20.5 96/67(84) NSR 0 (11) 10(A) , No pain 23:23:16 81 15 89 29.6 91/61(77) NSR 0 (11) 10(A) , No pain 23:27:20 78 20 89 17.4 95/56(83) NSR 0 (11) 10(A) , No pain 23:31:24 75 20 90 26.6 95/65(78) NSR 0 (11) 10(A) , No pain 23:35:28 77 23 89 25.8 93/62(75) NSR 0 (11) 10(A) , No pain 23:36:27 78 23 88 25.8 96/59(79) NSR 0 (11) 10(A) , No pain 23:40:29 78 21 89 26.6 102/68(80) NSR 0 (11) 10(A) , No pain 23:44:35 75 20 89 25 100/67(85) NSR 0 (11) 10(A) , No pain 23:48:38 81 22 90 25.8 102/70(88) NSR 0 (11) 10(A) , No pain Medications Time Medication Route Dose Verified Delivered Reason Notes Effe ctiveness by by 22:06:21 Lidocaine 1% added 20ml Rafia Solo for local to vial Lay CAT Carreno MD anesthetic field 22:06:35 Oxygen NC 3 Rafia Rafia used for l/min Lay RN Lay eligibility and occupancy interviewer 22:06:56 Heparin Flush added 3 Rafia Solo used for Bag to bags Lay CAT Carreno MD procedure (1000units/500ml field NS) 22:20:08 Fentanyl I.V. 25 Rafia Rafia for mcg Lay RN Lay RN sedation 22:20:57 Versed I.V. 0.5 Rafia Rafia for mg Lay RN Lay RN sedation Procedure Log Time Note 22:01:44 Patient Weight : 200 lbs 22:02:28 Time tracking: Call back 22:02:38 Plan of Care:Hemodynamics will remain stable., Cardiac rhythm will remain stable., Comfort level will be maintained., Respiratory function will remain adequate., Patient/ family verbilizes understanding of procedure., Procedure tolerated without complication., Recovers from procedure without complications.. 22:02:48 Patient received from ED to IR Alert and oriented. Tansferred to table in Supine position. 22:02:59 Signed procedure consent form obtained from patient. 22:03:01 - 22:03:13 H&P Date Dictated: 12/30/2017 ER History on chart.. 22:03:16 Pre-procedure instructions explained to patient. 22:03:17 Pre-op teaching completed and patient verbalized understanding. 22:03:22 Family unavailable. 22:03:25 Patient NPO since Lunch. 22:03:48 Patient allergic to Statins 22:03:52 Is the patient allergic to Iodine/contrast media? No. 22:03:56 Is patient on blood thinner?Yes 22:03:58 Patient diabetic? Yes. 22:04:01 If diabetic: On Metformin? No 22:04:03 - 22:04:06 ----Pre-sedation anethsthesia assessment.---- 22:04:10 Previous problem with sedation/anesthesia? No ? 22:04:13 Snore? Yes 22:04:17 Sleep apnea? No 22:04:20 Deviated septum? No 22:04:22 Opens mouth fully? Yes 22:04:29 Sticks out tongue? Yes 22:04:36 Airway obstruction? Yes ASTHMA 22:04:41 Dentures? No ? 22:04:51 Pre procedure: right dorsailis pedis pulse Doppler 22::56 Pre procedure: right posterior tibial pulse Doppler 22:05:06 - 22:05:14 Use device set IR Diagnostic 22:05:16 Bag Decanter (2002S) opened to sterile field. 22:05:16 Sterile Angiographic Pack opened to sterile field. 22:05:17 ACIST Manifold (94410) opened to sterile field. 22:05:18 ACIST Hand Control (96082) opened to sterile field. 22:05:19 ACIST Syringe (55909) opened to sterile field. 22:05:37 SHEATH 5FR Edwards (WTU890) opened to sterile field. 22:05:38 DOC .035 wire (Q58068) opened to sterile field. 22:05:39 Micropuncture VSI 4FR kit opened to sterile field. 22:05:50 TUBING Contrast Injection High Pressure (VMP333H) opened to sterile field. 22:06:05 - 22:06:21 Lidocaine 1% 20ml vial added to field was administered by Edil Carreno MD; for local anesthetic; :06:33 A Angiodynamics SOS OMNI 2 NON B 5FR 65CM catheter ([id number]) was advanced over the wire and used for . 22:06:35 Oxygen 3 l/min NC was administered by Rafia Trent RN; used for procedure ; ::56 Heparin Flush Bag (1000units/500ml NS) 3 bags added to field was administered by Edil Carreno MD; used for procedure; ::58 - 22:16:45 ECG and BP/O2 sat monitors applied to patient. 22:16:46 Vital chart was started 22:16:47 Baseline sample Acquired. 22:16:48 Full Disclosure recording started 22:16:49 - 22:17:07 Right groin area was prepped with chlora-prep and draped in sterile fashion 22:17:10 Alarms reviewed by Rohit Leos 22:17:12 Sharps counted by scrub and verified by RThierryNThierry 22:17:13 - 22:17:15 Physician arrived 22:19:41 --------ALL STOP TIME OUT------ 22:19:42 Final Timeout: patient, procedure, and site verified with staff and physician. All members of the team are in agreement. :19:49 Sedation plan: IV Moderate Sedation Medication:Versed, Fentanyl 22:19:54 Procedure started. 22:19:58 Local anesthetic to right femoral artery with Lidocaine 1% by Edil Carreno MD.INITIAL ACCESS ONLY 22:20:08 Fentanyl 25 mcg I.V. was administered by Rafia Trent RN; for sedation; ::57 Versed 0.5 mg I.V. was administered by Rafia Trent RN; for sedation; 22:26:16 Arterial access obtained using ultrasound guidance. 22:27:16 A 5 Fr sheath was inserted into the Right Femoral artery 22:31:50 GLIDE WIRE ANGLE 180cm (CV6853) opened to sterile field. 22:32:02 TORQUE DEVICE PLASTIC .038 ( TD01) opened to sterile field. 22:36:59 Angiography was performed. 22:48:18 RENEGADE STAIGHT 150CM microcatheter ([id number]) opened to sterile field. 22:48:30 GLIDE WIRE GT DOUBLE ANGLE .018 (RG*[id number]) opened to sterile field. 23:06:18 COPILOT Valve Control (1979645) opened to sterile field. 23:12:59 RENEGADE HI-ASHLEY microcatheter ([id number]) opened to sterile field. 23:31:04 Procedure ended.(Physican Out) 23:31:27 Procedure and supply charges have been captured, reviewed, submitted an d are correct. 23:31:33 Fluoroscopy time 13.70 minutes. 23:31:43 Fluoroscopy dose: 2916 mGy 23:31:43 Flurop Dose total: 2916 23:31:49 Contrast amount:Isovue 300 190ml. 23:31:51 Sharps counted by scrub and verified by R.N. 23:37:14 Sheath removed intact; hemostasis achieved with Angio-VIP 6Fr to the Femoral artery. 23:37:14 A sheath was inserted into the Femoral artery 23:51:26 Vital chart was stopped 23:51:31 Full Disclosure recording stopped Device Usage Item Name Manufacture Quantity Catalog Hospital Part Current Mini mal Lot# / Number Charge Number Stock Stock Serial# Code Sterile Skippers 1 [id number] 370647 5 Angiographic Health Pack Bag Decanter Microtek 1 825570 87840 730345 5 () Medical Inc. ACIST Acist Medical 1 69879 338899 775268 941778 5 Manifold Systems Inc (80042) ACIST Hand Acist Medical 1 12309 503328 350146 149495 5 Control Systems Inc (61048) ACIST Syringe Acist Medical 1 89495 664826 668509 755069 20 (77721) Systems Inc SHEATH 5FR Terumo 1 YFO296 082771 010554 160986 40 Edwards (GBS304) DOC .035 wire Cook Medical 1 P18756 888466 885955 5 3329846 (X41856) Micropuncture VSI VASCULAR 1 7266V 100293 815433 5 VSI 4FR kit SOLUTIONS TUBING [facility] 1 UNC570R 664563 613496 526146 5 Contrast Injection High Pressure (KMQ744U) Angiodynamics Angiodynamics 1 80581062 665111 34831 280036 5 SOS OMNI 2 NON B 5FR 65CM catheter (98928165) GLIDE WIRE Terumo 1 TY4126 725032 722021 023425 5 ANGLE 180cm (UE4813) TORQUE DEVICE [place] 1 TD01 683941 780286 902826 5 PLASTIC .038 Scientific ( TD01) RENEGADE [place] 1 [id number] 550454 532105 5 STAIGHT 150CM Scientific microcatheter ([id number]) GLIDE WIRE GT Terumo 1 [id number] 611211 023099 5 DOUBLE ANGLE .018 (RG*FG6017CI) COPILOT Valve Guillaume 1 6426878 172498 475364 599523 5 Control Vascular (4322276) RENEGADE [place] 1 [id number] 512321 519974 5 HI-ASHLEY Scientific microcatheter ([id number]) Signature Audit Clymer Stage Time Signature Unsigned Intra-Procedure 12/30/2017 [facility] 11:51:22 PM RT(R) (R) (CV) 12/31/2017 12:05:01 AM Intra-Procedure 12/31/2017 Ev Guillen 12:06:05 AM RT(R) Signatures Monitor : Ev Guillen RT Signature : Date : Time : [facility] [address] [place] [address]
[2017-12-30 05:30] LABS: BASOPHILS 0.1 % (0-2); EOSINOPHILS 0.7 % (0-7); HEMATOCRIT 32.2 % (42.0-54.0); HEMOGLOBIN 10.5 g/dL (13.5-17.5); IMMATURE GRANULOCYTES 0.3 % (0-5); LYMPHOCYTES 4.7 % (15-50); MCH 27.2 pg (26.0-34.0); MCHC 32.6 g/dL (31.0-37.0); MCV 83.4 fL (80.0-100.0); MEAN PLATELET VOLUME 10.1 fL (7.4-10.4); MONOCYTES 8.3 % (2-11); NEUTROPHILS 85.9 % (40-80); PLATELET COUNT 204 10x3/uL (130-400); RBC 3.86 10x6/uL (4.20-6.10); RDW 18.3 % (11.5-14.5); WBC 9.9 10x3/uL (4.8-10.8)
[2017-12-30 05:41] LABS: APTT 39.5 SECONDS (22.8-39.4); INR 1.56 (0.85-1.17); PROTIME 18.2 SECONDS (11.6-15.0)
[2017-12-30 05:42] LABS: ANION GAP 11.6 mmol/L (8-16); BILIRUBIN - TOTAL 1.01 mg/dL (0.2-1.3); CALCIUM 9.1 mg/dL (8.5-10.1); CARBON DIOXIDE 32.8 mmol/L (21.0-32.0); CREATININE - SERUM 2.4 mg/dL (0.6-1.3); POTASSIUM - SERUM 3.4 mmol/L (3.5-5.1)
[2017-12-30 06:32] LABS: APPEARANCE HAZY (CLEAR); BILIRUBIN NEGATIVE (NEGATIVE); COLOR YELLOW (YELLOW); EPITHELIAL CELLS RARE /hpf (0-5); GLUCOSE NEGATIVE (NEGATIVE); KETONE NEGATIVE (NEGATIVE); NITRITE NEGATIVE (NEGATIVE); PROTEIN NEGATIVE (NEGATIVE); UROBILINOGEN NORMAL (NORMAL); WHITE CELLS - URINE 25-50 /hpf (0-5)
[2017-12-30 06:33] LABS: BACTERIA FEW /hpf (NONE SEEN); HYALINE CAST OCC /lpf (NONE SEEN)
[2017-12-30 14:32] LABS: HEMATOCRIT 23.6 % (42.0-54.0); HEMOGLOBIN 7.7 g/dL (13.5-17.5)
[2017-12-30 19:22] LABS: HEMATOCRIT 21.7 % (42.0-54.0)
[2017-12-31] VITALS (31 sets, daily range): BP systolic 89–111; BP diastolic 55–85; BMI 27.4; BMI 27.3
[2017-12-31 00:32] LABS: HEMATOCRIT 26.2 % (42.0-54.0); HEMOGLOBIN 8.8 g/dL (13.5-17.5)
[2017-12-31 07:09] LABS: BASOPHILS 0.1 % (0-2); EOSINOPHILS 0.3 % (0-7); HEMATOCRIT 27.6 % (42.0-54.0); HEMOGLOBIN 9.1 g/dL (13.5-17.5); IMMATURE GRANULOCYTES 0.1 % (0-5); LYMPHOCYTES 6.1 % (15-50); MCH 26.8 pg (26.0-34.0); MEAN PLATELET VOLUME 9.5 fL (7.4-10.4); MONOCYTES 4.1 % (2-11); NEUTROPHILS 89.3 % (40-80); RBC 3.39 10x6/uL (4.20-6.10); RDW 21.2 % (11.5-14.5)
[2017-12-31 07:27] LABS: MCV 81.4 fL (80.0-100.0); PLATELET COUNT 128 10x3/uL (130-400); WBC 7.4 10x3/uL (4.8-10.8)
[2017-12-31 07:30] LABS: INR 1.52 (0.85-1.17); PROTIME 17.8 SECONDS (11.6-15.0)
[2017-12-31 07:31] LABS: ALBUMIN 2.8 g/dL (3.4-5.0); ANION GAP 13.5 mmol/L (8-16); BILIRUBIN - TOTAL 1.85 mg/dL (0.2-1.3); CALCIUM 8.4 mg/dL (8.5-10.1); CARBON DIOXIDE 30.8 mmol/L (21.0-32.0); CREATININE - SERUM 2.6 mg/dL (0.6-1.3); POTASSIUM - SERUM 3.3 mmol/L (3.5-5.1); PROTEIN - SERUM 6.1 g/dL (6.4-8.2)
[2017-12-31] MEDS ORDERED: LASIX80 MG PO (08:38)
[2017-12-31] MEDS ORDERED: METOLAZONE2.5 MG PO (08:39)
[2017-12-31] MEDS ORDERED: POTASSIUM CHLO10 ME1 PO (08:41)
[2017-12-31] MEDS ORDERED: ELIQUIS2.5 MG PO (08:42)
[2017-12-31] MEDS ORDERED: COMBIVENT RESPIM4 GM INH (08:43)
[2017-12-31] MEDS ORDERED: PROTONIX40 MG PO (08:44)
[2017-12-31] MEDS ORDERED: JANUMET 50-1,001 TAB PO (08:46)
[2017-12-31 15:07] LABS: HEMATOCRIT 27.3 % (42.0-54.0); HEMOGLOBIN 9.2 g/dL (13.5-17.5)
[2017-12-31 23:05] LABS: HEMATOCRIT 26.9 % (42.0-54.0); HEMOGLOBIN 9.1 g/dL (13.5-17.5)
[2018-01-01] VITALS (19 sets, daily range): BP systolic 91–108; BP diastolic 55–71; Ht 182.9 cm; Wt 109.8 kg
[2018-01-01 03:57] LABS: BASOPHILS 0.1 % (0-2); EOSINOPHILS 0.4 % (0-7); HEMATOCRIT 26.9 % (42.0-54.0); HEMOGLOBIN 8.9 g/dL (13.5-17.5); IMMATURE GRANULOCYTES 0.4 % (0-5); LYMPHOCYTES 5.6 % (15-50); MCHC 33.1 g/dL (31.0-37.0); MCV 81.5 fL (80.0-100.0); MEAN PLATELET VOLUME 9.4 fL (7.4-10.4); MONOCYTES 7.4 % (2-11); NEUTROPHILS 86.1 % (40-80); PLATELET COUNT 146 10x3/uL (130-400); RDW 21.4 % (11.5-14.5); WBC 8.2 10x3/uL (4.8-10.8)
[2018-01-01 04:11] LABS: ALBUMIN 2.7 g/dL (3.4-5.0); ANION GAP 14.4 mmol/L (8-16); BILIRUBIN - TOTAL 1.1 mg/dL (0.2-1.3); CALCIUM 8.3 mg/dL (8.5-10.1); CARBON DIOXIDE 30.3 mmol/L (21.0-32.0); CREATININE - SERUM 2.9 mg/dL (0.6-1.3); PROTEIN - SERUM 6.1 g/dL (6.4-8.2)
[2018-01-01 04:13] LABS: POTASSIUM - SERUM 2.7 mmol/L (3.5-5.1)
[2018-01-01 04:36] LABS: MAGNESIUM - SERUM 2.4 mg/dL (1.8-2.4); PHOSPHOROUS 6.5 mg/dL (2.5-4.9)
[2018-01-01 12:56] LABS: ERYTHROCYTE SEDIMENTATION RATE 15 mm/hr (0-20)
[2018-01-01 13:57] LABS: HEMATOCRIT 29.6 % (42.0-54.0); HEMOGLOBIN 9.8 g/dL (13.5-17.5)
[2018-01-01 14:34] LABS: ANION GAP 15.1 mmol/L (8-16); CARBON DIOXIDE 28.4 mmol/L (21.0-32.0); CREATININE - SERUM 3.1 mg/dL (0.6-1.3); MAGNESIUM - SERUM 2.4 mg/dL (1.8-2.4)
[2018-01-01 14:46] LABS: POTASSIUM - SERUM 3.5 mmol/L (3.5-5.1)
[2018-01-01 20:57] LABS: HEMATOCRIT 28.8 % (42.0-54.0); HEMOGLOBIN 9.6 g/dL (13.5-17.5)
[2018-01-02] VITALS (24 sets, daily range): BP systolic 93–118; BP diastolic 40–86
[2018-01-02 03:55] LABS: BASOPHILS 0.2 % (0-2); EOSINOPHILS 1.5 % (0-7); HEMATOCRIT 29.4 % (42.0-54.0); HEMOGLOBIN 9.7 g/dL (13.5-17.5); IMMATURE GRANULOCYTES 0.5 % (0-5); LYMPHOCYTES 6.2 % (15-50); MCH 27.1 pg (26.0-34.0); MCV 82.1 fL (80.0-100.0); MEAN PLATELET VOLUME 9.7 fL (7.4-10.4); MONOCYTES 7.5 % (2-11); NEUTROPHILS 84.1 % (40-80); PLATELET COUNT 142 10x3/uL (130-400); RBC 3.58 10x6/uL (4.20-6.10)
[2018-01-02 03:59] LABS: WBC 10.7 10x3/uL (4.8-10.8)
[2018-01-02 04:15] LABS: ALBUMIN 2.7 g/dL (3.4-5.0); ANION GAP 14.9 mmol/L (8-16); BILIRUBIN - TOTAL 0.83 mg/dL (0.2-1.3); CARBON DIOXIDE 26.6 mmol/L (21.0-32.0); CREATININE - SERUM 3.2 mg/dL (0.6-1.3); MAGNESIUM - SERUM 2.2 mg/dL (1.8-2.4); PHOSPHOROUS 5.9 mg/dL (2.5-4.9); POTASSIUM - SERUM 3.5 mmol/L (3.5-5.1); PROTEIN - SERUM 6.1 g/dL (6.4-8.2)
[2018-01-02 12:48] LABS: HEMATOCRIT 29.4 % (42.0-54.0); HEMOGLOBIN 9.7 g/dL (13.5-17.5)
[2018-01-02 21:29] LABS: HEMATOCRIT 28.9 % (42.0-54.0); HEMOGLOBIN 9.7 g/dL (13.5-17.5)
[2018-01-03] VITALS (24 sets, daily range): BP systolic 96–114; BP diastolic 57–82
[2018-01-03 03:37] LABS: BASOPHILS 0.1 % (0-2); EOSINOPHILS 1.3 % (0-7); HEMATOCRIT 28.4 % (42.0-54.0); HEMOGLOBIN 9.4 g/dL (13.5-17.5); IMMATURE GRANULOCYTES 0.7 % (0-5); MCH 27.3 pg (26.0-34.0); MCHC 33.1 g/dL (31.0-37.0); MCV 82.6 fL (80.0-100.0); MEAN PLATELET VOLUME 9.6 fL (7.4-10.4); MONOCYTES 7.3 % (2-11); NEUTROPHILS 85.6 % (40-80); PLATELET COUNT 146 10x3/uL (130-400); RBC 3.44 10x6/uL (4.20-6.10); RDW 21.1 % (11.5-14.5); WBC 9.2 10x3/uL (4.8-10.8)
[2018-01-03 04:09] LABS: ANION GAP 16.4 mmol/L (8-16); CALCIUM 8.1 mg/dL (8.5-10.1); CARBON DIOXIDE 26.2 mmol/L (21.0-32.0); CREATININE - SERUM 3.3 mg/dL (0.6-1.3); POTASSIUM - SERUM 3.6 mmol/L (3.5-5.1)
[2018-01-03 13:45] LABS: HEMOGLOBIN 9.5 g/dL (13.5-17.5)
[2018-01-03 18:12] LABS: HEMATOCRIT 28.9 % (42.0-54.0); HEMOGLOBIN 9.4 g/dL (13.5-17.5)
[2018-01-04] VITALS (10 sets, daily range): BP systolic 92–112; BP diastolic 54–76
[2018-01-04 03:59] LABS: BASOPHILS 0.1 % (0-2); HEMATOCRIT 28.4 % (42.0-54.0); HEMOGLOBIN 9.3 g/dL (13.5-17.5); IMMATURE GRANULOCYTES 0.5 % (0-5); LYMPHOCYTES 3.7 % (15-50); MCH 27.2 pg (26.0-34.0); MCHC 32.7 g/dL (31.0-37.0); MEAN PLATELET VOLUME 10.1 fL (7.4-10.4); MONOCYTES 7.4 % (2-11); NEUTROPHILS 87.3 % (40-80); PLATELET COUNT 149 10x3/uL (130-400); RBC 3.42 10x6/uL (4.20-6.10)
[2018-01-04 04:04] LABS: ALBUMIN 2.7 g/dL (3.4-5.0); ANION GAP 13.5 mmol/L (8-16); BILIRUBIN - TOTAL 0.9 mg/dL (0.2-1.3); CALCIUM 8.4 mg/dL (8.5-10.1); CARBON DIOXIDE 30.7 mmol/L (21.0-32.0); POTASSIUM - SERUM 3.2 mmol/L (3.5-5.1); PROTEIN - SERUM 6.3 g/dL (6.4-8.2)
[2018-01-04 12:17] LABS: APPEARANCE HAZY (CLEAR); BILIRUBIN NEGATIVE (NEGATIVE); COLOR YELLOW (YELLOW); GLUCOSE NEGATIVE (NEGATIVE); KETONE NEGATIVE (NEGATIVE); NITRITE NEGATIVE (NEGATIVE); PROTEIN NEGATIVE (NEGATIVE); UROBILINOGEN NORMAL (NORMAL)
[2018-01-04 12:30] LABS: BACTERIA FEW /hpf (NONE SEEN); EPITHELIAL CELLS OCC /hpf (0-5); RED CELLS - URINE 0-5 /hpf (0-5)
[2018-01-05] VITALS (7 sets, daily range): BP systolic 90–107; BP diastolic 53–68
[2018-01-05 08:20] LABS: SPE - A/G RATIO 1.1 (0.7-1.7); SPE - ALBUMIN 2.9 g/dL (2.9-4.4); SPE - ALPHA-1 GLOBULIN 0.3 g/dL (0.0-0.4); SPE - ALPHA-2 GLOBULIN 0.5 g/dL (0.4-1.0); SPE - BETA GLOBULIN 0.8 g/dL (0.7-1.3); SPE - GAMMA GLOBULIN 1.1 g/dL (0.4-1.8); SPE - M-SPIKE Not Observed g/dL (Not Observed); SPE - TOTAL PROTEIN 5.6 g/dL (6.0-8.5)
[2018-01-05 12:42] LABS: ANION GAP 11.9 mmol/L (8-16); CALCIUM 8.3 mg/dL (8.5-10.1); CARBON DIOXIDE 30.8 mmol/L (21.0-32.0); CREATININE - SERUM 2.9 mg/dL (0.6-1.3)
[2018-01-05 12:44] LABS: POTASSIUM - SERUM 2.7 mmol/L (3.5-5.1)
[2018-01-06] VITALS: BP 99/71
[2018-01-06 04:00] VITALS: BP 93/57
[2018-01-06 04:04] LABS: BASOPHILS 0.1 % (0-2); EOSINOPHILS 1.8 % (0-7); HEMATOCRIT 28.2 % (42.0-54.0); HEMOGLOBIN 9.2 g/dL (13.5-17.5); IMMATURE GRANULOCYTES 0.8 % (0-5); LYMPHOCYTES 3.7 % (15-50); MCH 27.4 pg (26.0-34.0); MCHC 32.6 g/dL (31.0-37.0); MCV 83.9 fL (80.0-100.0); MEAN PLATELET VOLUME 9.6 fL (7.4-10.4); MONOCYTES 9.5 % (2-11); NEUTROPHILS 84.1 % (40-80); PLATELET COUNT 160 10x3/uL (130-400); RBC 3.36 10x6/uL (4.20-6.10); WBC 8.7 10x3/uL (4.8-10.8)
[2018-01-06 04:14] LABS: ANION GAP 10.9 mmol/L (8-16); CALCIUM 8.4 mg/dL (8.5-10.1); CARBON DIOXIDE 31.1 mmol/L (21.0-32.0); CREATININE - SERUM 2.7 mg/dL (0.6-1.3)
[2018-01-06 09:00] VITALS: BP 113/65
[2018-01-06 11:00] VITALS: BP 103/66
[2018-01-06 15:00] VITALS: BP 122/59
[2018-01-06 19:00] VITALS: BP 103/63; BP 93/55
[2018-01-07 04:52] VITALS: BP 99/54
[2018-01-07 05:41] LABS: ANION GAP 11.7 mmol/L (8-16); BASOPHILS 0.1 % (0-2); CALCIUM 8.4 mg/dL (8.5-10.1); CARBON DIOXIDE 29.8 mmol/L (21.0-32.0); CREATININE - SERUM 2.4 mg/dL (0.6-1.3); EOSINOPHILS 1.7 % (0-7); HEMATOCRIT 28.5 % (42.0-54.0); HEMOGLOBIN 9.3 g/dL (13.5-17.5); IMMATURE GRANULOCYTES 0.9 % (0-5); LYMPHOCYTES 4.6 % (15-50); MCH 27.3 pg (26.0-34.0); MCHC 32.6 g/dL (31.0-37.0); MCV 83.6 fL (80.0-100.0); MEAN PLATELET VOLUME 9.6 fL (7.4-10.4); MONOCYTES 7.5 % (2-11); NEUTROPHILS 85.2 % (40-80); PLATELET COUNT 161 10x3/uL (130-400); POTASSIUM - SERUM 3.5 mmol/L (3.5-5.1); RBC 3.41 10x6/uL (4.20-6.10); WBC 7.8 10x3/uL (4.8-10.8)
[2018-01-07 08:19] VITALS: BP 98/58
[2018-01-07 11:32] VITALS: BP 162/66
[2018-01-07 15:44] VITALS: BP 144/71
[2018-01-07 20:53] VITALS: BP 101/65
[2018-01-08 02:35] VITALS: BP 95/55
[2018-01-08 06:08] VITALS: BP 97/54
[2018-01-08 06:09] LABS: BASOPHILS 0.1 % (0-2); EOSINOPHILS 1.9 % (0-7); HEMOGLOBIN 9.2 g/dL (13.5-17.5); IMMATURE GRANULOCYTES 0.6 % (0-5); LYMPHOCYTES 5.6 % (15-50); MCH 27.5 pg (26.0-34.0); MCHC 32.9 g/dL (31.0-37.0); MCV 83.6 fL (80.0-100.0); MEAN PLATELET VOLUME 9.4 fL (7.4-10.4); NEUTROPHILS 83.8 % (40-80); PLATELET COUNT 160 10x3/uL (130-400); RBC 3.35 10x6/uL (4.20-6.10); RDW 21.6 % (11.5-14.5); WBC 7.3 10x3/uL (4.8-10.8)
[2018-01-08 06:26] LABS: ANION GAP 7.1 mmol/L (8-16); CALCIUM 8.2 mg/dL (8.5-10.1); CARBON DIOXIDE 30.7 mmol/L (21.0-32.0); CREATININE - SERUM 2.1 mg/dL (0.6-1.3)
[2018-01-08 06:28] LABS: POTASSIUM - SERUM 2.8 mmol/L (3.5-5.1)
[2018-01-08 07:51] VITALS: BP 101/66
[2018-01-08 15:30] VITALS: BP 110/81
[2018-01-08 19:00] VITALS: BP 114/70
[2018-01-09 04:00] VITALS: BP 100/64
[2018-01-09 07:00] LABS: BASOPHILS 0.1 % (0-2); EOSINOPHILS 1.7 % (0-7); HEMATOCRIT 27.8 % (42.0-54.0); HEMOGLOBIN 9.1 g/dL (13.5-17.5); IMMATURE GRANULOCYTES 0.4 % (0-5); LYMPHOCYTES 4.1 % (15-50); MCH 27.4 pg (26.0-34.0); MCHC 32.7 g/dL (31.0-37.0); MCV 83.7 fL (80.0-100.0); MEAN PLATELET VOLUME 9.3 fL (7.4-10.4); MONOCYTES 7.9 % (2-11); NEUTROPHILS 85.8 % (40-80); PLATELET COUNT 169 10x3/uL (130-400); RBC 3.32 10x6/uL (4.20-6.10); RDW 21.9 % (11.5-14.5); WBC 7.6 10x3/uL (4.8-10.8)
[2018-01-09 07:11] LABS: ANION GAP 12.3 mmol/L (8-16); CALCIUM 8.4 mg/dL (8.5-10.1); CARBON DIOXIDE 30.3 mmol/L (21.0-32.0); CREATININE - SERUM 2.2 mg/dL (0.6-1.3); POTASSIUM - SERUM 3.6 mmol/L (3.5-5.1)
[2018-01-09 09:50] VITALS: BP 90/48
[2018-01-09 12:15] VITALS: BP 97/58
[2018-01-09 15:58] VITALS: BP 97/64
[2018-01-09 20:40] VITALS: BP 97/57
[2018-01-10 00:15] VITALS: BP 101/60
[2018-01-10 05:09] VITALS: BP 92/52
[2018-01-10 07:07] LABS: BASOPHILS 0.2 % (0-2); EOSINOPHILS 1.7 % (0-7); HEMATOCRIT 26.9 % (42.0-54.0); HEMOGLOBIN 8.8 g/dL (13.5-17.5); IMMATURE GRANULOCYTES 0.5 % (0-5); LYMPHOCYTES 5.5 % (15-50); MCH 27.6 pg (26.0-34.0); MCHC 32.7 g/dL (31.0-37.0); MCV 84.3 fL (80.0-100.0); MONOCYTES 7.6 % (2-11); NEUTROPHILS 84.5 % (40-80); PLATELET COUNT 172 10x3/uL (130-400); RBC 3.19 10x6/uL (4.20-6.10); RDW 21.9 % (11.5-14.5); WBC 8.1 10x3/uL (4.8-10.8)
[2018-01-10 07:20] LABS: ANION GAP 13.1 mmol/L (8-16); CALCIUM 8.5 mg/dL (8.5-10.1); CARBON DIOXIDE 30.3 mmol/L (21.0-32.0); CREATININE - SERUM 2.2 mg/dL (0.6-1.3); POTASSIUM - SERUM 3.4 mmol/L (3.5-5.1)
[2018-01-10 07:41] VITALS: BP 92/51
[2018-01-10 11:37] VITALS: BP 90/61
[2018-01-10 15:49] VITALS: BP 103/58
[2018-01-10 20:58] VITALS: BP 104/61
[2018-01-11 01:12] VITALS: BP 97/50
[2018-01-11 05:58] VITALS: BP 97/59
[2018-01-11 06:49] LABS: BASOPHILS 0.3 % (0-2); EOSINOPHILS 1.8 % (0-7); HEMATOCRIT 28.1 % (42.0-54.0); HEMOGLOBIN 9.1 g/dL (13.5-17.5); IMMATURE GRANULOCYTES 0.4 % (0-5); LYMPHOCYTES 7.5 % (15-50); MCH 27.2 pg (26.0-34.0); MCHC 32.4 g/dL (31.0-37.0); MCV 84.1 fL (80.0-100.0); MEAN PLATELET VOLUME 9.2 fL (7.4-10.4); PLATELET COUNT 190 10x3/uL (130-400); RBC 3.34 10x6/uL (4.20-6.10); RDW 22.1 % (11.5-14.5); WBC 7.1 10x3/uL (4.8-10.8)
[2018-01-11 06:53] LABS: ANION GAP 12.9 mmol/L (8-16); CALCIUM 8.4 mg/dL (8.5-10.1); CREATININE - SERUM 2.2 mg/dL (0.6-1.3); POTASSIUM - SERUM 3.9 mmol/L (3.5-5.1)
[2018-01-11 08:01] VITALS: BP 93/58
[2018-01-11 11:27] VITALS: BP 101/58
[2018-01-11 16:10] VITALS: BP 101/68
[2018-01-11 19:00] VITALS: BP 100/55
[2018-01-12] VITALS: BP 96/59
[2018-01-12 04:00] VITALS: BP 104/57
[2018-01-12 07:30] LABS: HEMATOCRIT 27.7 % (42.0-54.0); HEMOGLOBIN 9.3 g/dL (13.5-17.5); LYMPHOCYTES 5.6 % (15-50); MCH 28.4 pg (26.0-34.0); MCHC 33.6 g/dL (31.0-37.0); MCV 84.7 fL (80.0-100.0); MEAN PLATELET VOLUME 8.1 fL (7.4-10.4); NEUTROPHILS 85.2 % (40-80); PLATELET COUNT 183 10x3/uL (130-400); RBC 3.27 10x6/uL (4.20-6.10); WBC 7.5 10x3/uL (4.8-10.8)
[2018-01-12 07:36] LABS: ANION GAP 12.6 mmol/L (8-16); CALCIUM 8.5 mg/dL (8.5-10.1); CREATININE - SERUM 2.1 mg/dL (0.6-1.3); POTASSIUM - SERUM 3.6 mmol/L (3.5-5.1)
[2018-01-12 09:25] VITALS: BP 100/56
[2018-01-12 11:28] VITALS: BP 92/53
[2018-01-12 16:11] VITALS: BP 93/56
[2018-01-12 20:00] VITALS: BP 90/51
[2018-01-13] VITALS: BP 94/57
[2018-01-13 04:00] VITALS: BP 100/55
[2018-01-13 06:38] LABS: BASOPHILS 0.1 % (0-2); EOSINOPHILS 1.8 % (0-7); HEMATOCRIT 28.3 % (42.0-54.0); IMMATURE GRANULOCYTES 0.2 % (0-5); LYMPHOCYTES 6.3 % (15-50); MCH 27.1 pg (26.0-34.0); MCHC 31.8 g/dL (31.0-37.0); MCV 85.2 fL (80.0-100.0); MEAN PLATELET VOLUME 9.2 fL (7.4-10.4); MONOCYTES 7.6 % (2-11); PLATELET COUNT 201 10x3/uL (130-400); RBC 3.32 10x6/uL (4.20-6.10); WBC 8.1 10x3/uL (4.8-10.8)
[2018-01-13 07:01] LABS: ANION GAP 12.4 mmol/L (8-16); CALCIUM 8.3 mg/dL (8.5-10.1); CARBON DIOXIDE 31.6 mmol/L (21.0-32.0)
[2018-01-13 08:46] VITALS: BP 96/62
[2018-01-13 12:23] VITALS: BP 100/58
[2018-01-13] MEDS ORDERED: MEGACE400 MG/10 PO (14:14)
[2018-01-13] MEDS ORDERED: AMOXIL250 M1 PO (14:15)
[2018-01-13] MEDS ORDERED: ELIQUIS5 MG PO (14:15)
[2018-01-13 16:00] VITALS: BP 95/65
[2018-01-13 19:00] VITALS: BP 145/88
[2018-01-14 04:00] VITALS: BP 122/68
[2018-01-14 05:26] LABS: BASOPHILS 0.3 % (0-2); EOSINOPHILS 1.7 % (0-7); HEMATOCRIT 28.1 % (42.0-54.0); IMMATURE GRANULOCYTES 0.5 % (0-5); LYMPHOCYTES 4.8 % (15-50); MCH 27.5 pg (26.0-34.0); MCV 85.9 fL (80.0-100.0); MEAN PLATELET VOLUME 9.1 fL (7.4-10.4); MONOCYTES 8.5 % (2-11); NEUTROPHILS 84.2 % (40-80); PLATELET COUNT 196 10x3/uL (130-400); RBC 3.27 10x6/uL (4.20-6.10); RDW 22.2 % (11.5-14.5); WBC 7.6 10x3/uL (4.8-10.8)
[2018-01-14 05:42] LABS: ANION GAP 12.3 mmol/L (8-16); CALCIUM 8.5 mg/dL (8.5-10.1); CARBON DIOXIDE 28.6 mmol/L (21.0-32.0); POTASSIUM - SERUM 3.9 mmol/L (3.5-5.1)
[2018-01-14 07:44] VITALS: BP 98/59
[2018-01-14 10:57] VITALS: BP 101/62
== END 2018-01-14 13:05 | DRG 377 ==
LOC: D.ER 04:54 → D.SDCHOLD 07:11 → D.M2 07:11 → D.ICU 07:11 → D.SDCHOLD 15:19 → D.ICU 12-31 00:05 → D.M2 01-06 20:48
PROVIDERS: Family Medicine; Internal Medicine; Internal Medicine Gastroenterology; Internal Medicine Nephrology; Student in an Organized Health Care Education/Training Program
PROC: B4151ZZ Fluoroscopy of Inferior Mesenteric Artery using Low Osmolar Contrast (ICD-10-PCS; principal; 2017-12-30)
PROC: B4141ZZ Fluoroscopy of Superior Mesenteric Artery using Low Osmolar Contrast (ICD-10-PCS; 2017-12-30)
DX: K92.2 Gastrointestinal hemorrhage, unspecified (principal); I50.33 Acute on chronic diastolic (congestive) heart failure; I13.0 Hypertensive heart and chronic kidney disease with heart failure and stage 1 through stage 4 chronic kidney disease, or unspecified chronic kidney disease; D62 Acute posthemorrhagic anemia; N39.0 Urinary tract infection, site not specified; E87.1 Hypo-osmolality and hyponatremia; I48.2 Chronic atrial fibrillation; R76.0 Raised antibody titer; I25.10 Atherosclerotic heart disease of native coronary artery without angina pectoris; F41.9 Anxiety disorder, unspecified; N18.9 Chronic kidney disease, unspecified; E11.22 Type 2 diabetes mellitus with diabetic chronic kidney disease; E03.9 Hypothyroidism, unspecified; J44.9 Chronic obstructive pulmonary disease, unspecified; Z95.5 Presence of coronary angioplasty implant and graft; Z87.891 Personal history of nicotine dependence; N40.0 Benign prostatic hyperplasia without lower urinary tract symptoms; B95.2 Enterococcus as the cause of diseases classified elsewhere; B96.1 Klebsiella pneumoniae [K. pneumoniae] as the cause of diseases classified elsewhere; B96.5 Pseudomonas (aeruginosa) (mallei) (pseudomallei) as the cause of diseases classified elsewhere; I08.1 Rheumatic disorders of both mitral and tricuspid valves; E87.6 Hypokalemia

== ENCOUNTER 2018-01-26 14:22 | Inpatient (IN) | payer MEDICARE ==
[~2018-01-26] VITALS: Ht 182.9 cm; Wt 90.2 kg
--- NOTE | ~2018-01-26 | CN ---
PATIENT NAME:SALENA ERVIN MEDICAL RECORD: [id number] : 31 LOCATION:D. D.2133 ADMIT DATE: 01/26/18 ACCOUNT: [id number] CONSULTING PHYSICIAN: DIRK INIGUEZ MD REFERRING PHYSICIAN: ANTHONY SUN MD DATE OF CONSULTATION: 01/27/2018 CONSULT REQUESTING PHYSICIAN: Anthony Sun MD REASON FOR CONSULTATION: Bilateral pleural effusion, congestive heart failure, acute exacerbation of chronic obstructive pulmonary disease. HISTORY OF PRESENT ILLNESS: Mr. Ervin is an 82-year-old gentleman, very well known to me, he is now very weak and frail. The history was taken from his daughter. The patient has GI bleed. He was hospitalized and then he was sent to interventional rehabilitation. Over the year, he got worsening shortness of breath, coughing, and wheezing. Sent back to the hospital for possible pneumonia. Workup showed the patient in pulmonary edema and pleural effusion. He was also in kidney failure. REVIEW OF SYSTEMS: Mainly in the history of present illness. PAST MEDICAL HISTORY: 1. Asthma. 2. Chronic obstructive pulmonary disease. 3. Hypertension. 4. Congestive heart failure. 5. Aortic valve stenosis. 6. Coronary artery disease. 7. History of pneumonia. 8. History of empyema. He has skin cancer. PAST SURGICAL HISTORY: 1. He has thoracotomy and decortication in the past. 2. Appendectomy. 3. Right hip replacement. 4. Left knee replacement. 5. Bilateral shoulder scope surgery. ALLERGIES: HE IS ALLERGIC TO TIKOSYN, VYTORIN. MEDICATIONS: On Dome9 Security was reviewed. PERSONAL AND SOCIAL HISTORY: The patient is an ex-smoker. He is a nondrinker. FAMILY HISTORY: Noncontributory. PHYSICAL EXAMINATION: GENERAL: Now, the patient is lying comfortably in bed. He is not in acute distress. VITAL SIGNS: The blood pressure is 102/61, pulse is 72, respirations 15, temperature 98.2, SPO2 is 99% on 2 liters nasal cannula. HEENT: Conjunctivae is pink, sclerae nonicteric. NECK: Supple. No JVD. CHEST: There are bilateral crackles. Wheeze on forceful expiration. CONSULT REPORT [id number] SALENA ERVIN HEART: Rate and rhythm regular. There is grade 2/6 systolic murmur. ABDOMEN: Abdomen is soft, abdomen is distended. RECTAL: Deferred. EXTREMITIES: No cyanosis, no clubbing. There is bilateral pedal edema. CENTRAL NERVOUS SYSTEM: The patient is awake and alert. There are no obvious cranial nerve abnormality. The gait was not tested. IMAGING: Chest radiograph, there is bilateral pleural effusion. There is increased interstitial marking consistent with pulmonary edema. OTHER LABORATORY DATA: CBC: WBC 7.5, hemoglobin 9.9, hematocrit 30.6, platelet count 241. Chemistry: Sodium is 130, potassium is 4.1, BUN is 112, creatinine is 2.4. The proBNP is 12,577. IMPRESSION: 1. Mmvkn-ze-rfvvpfs hypoxic respiratory failure. 2. Pulmonary edema. 3. Congestive heart failure with chronic diastolic dysfunction. 4. Pleural effusion, bilateral secondary to congestive heart failure. 5. Chronic obstructive pulmonary disease acute exacerbation. 6. Asthma, chronic obstructive pulmonary disease overlap syndrome. 7. Atrial fibrillation. 8. Aortic valve stenosis. 9. Chronic kidney disease. 10. Possible underlying pneumonia, acute bronchitis. RECOMMENDATION: 1. I will start him on empiric Rocephin. 2. Continue Lasix. 3. Check the CT scan of the chest. Start on methylprednisolone IV. 4. Start him on Xopenex and ipratropium nebulizer, discontinue albuterol/ipratropium nebulizer. 5. Brovana, budesonide nebulizer. 6. Singulair 10 mg daily. 7. Supplemental oxygen. 8. Follow up labs and chest radiograph. Dr. Sun, thank you for involving me in the care of Mr. Ervin. TRANSINT:[id number] Voice Confirmation ID: [id number] DOCUMENT ID: [id number] DIRK INIGUEZ MD at 1340 CC: OLY GALLEGOS [id number] DICTATION DATE: 01/27/18 1501 WOOLEN SUITING SHRINKER: 01/27/18 1559 ADM IN [address] [address] [address] [place] [address]
[~2018-01-26 14:22] MED LIST changes: +AMOXIL250 M1 PO; -CELEXA10 MG PO; +CELEXA20 MG PO; +ELIQUIS2.5 MG PO; +K-DUR20 MEQ PO; +LASIX40 MG PO; +MEGACE400 MG/10 PO; +METOLAZONE2.5 MG PO
[2018-01-26 16:15] LABS: BASOPHILS 0.1 % (0-2); EOSINOPHILS 1.3 % (0-7); HEMATOCRIT 30.6 % (42.0-54.0); HEMOGLOBIN 9.9 g/dL (13.5-17.5); IMMATURE GRANULOCYTES 0.4 % (0-5); LYMPHOCYTES 4.7 % (15-50); MCH 27.7 pg (26.0-34.0); MCHC 32.4 g/dL (31.0-37.0); MCV 85.5 fL (80.0-100.0); MEAN PLATELET VOLUME 8.8 fL (7.4-10.4); MONOCYTES 8.3 % (2-11); NEUTROPHILS 85.2 % (40-80); RBC 3.58 10x6/uL (4.20-6.10); WBC 7.5 10x3/uL (4.8-10.8)
[2018-01-26 16:28] LABS: ALBUMIN 2.9 g/dL (3.4-5.0); ANION GAP 12.5 mmol/L (8-16); BILIRUBIN - TOTAL 0.88 mg/dL (0.2-1.3); CALCIUM 9.2 mg/dL (8.5-10.1); CARBON DIOXIDE 30.6 mmol/L (21.0-32.0); CREATININE - SERUM 2.4 mg/dL (0.6-1.3); POTASSIUM - SERUM 4.1 mmol/L (3.5-5.1); PROTEIN - SERUM 7.5 g/dL (6.4-8.2)
[2018-01-26 16:30] LABS: PLATELET COUNT 241 10x3/uL (130-400)
[2018-01-26 17:16] LABS: APPEARANCE CLEAR (CLEAR); BILIRUBIN NEGATIVE (NEGATIVE); COLOR YELLOW (YELLOW); GLUCOSE NEGATIVE (NEGATIVE); KETONE NEGATIVE (NEGATIVE); NITRITE NEGATIVE (NEGATIVE); PROTEIN TRACE mg/dL (NEGATIVE); UROBILINOGEN NORMAL (NORMAL)
[2018-01-26 17:17] LABS: WHITE CELLS - URINE 0-5 /hpf (0-5)
[2018-01-26 17:18] LABS: BACTERIA FEW /hpf (NONE SEEN); YEAST >1+ /hpf (NONE SEEN)
[2018-01-27] VITALS (7 sets, daily range): BP systolic 99–113; BP diastolic 55–65; Ht 182.9 cm; Wt 90.2 kg
[2018-01-27] MEDS ORDERED: XARELTO15 MG PO (01:32)
[2018-01-27] MEDS ORDERED: XOPENEX 0.0.63 MG/3 UPD (01:37)
[2018-01-27] MEDS ORDERED: HUMULIN R100 U/ML (01:39)
[2018-01-27] MEDS ORDERED: LANTUS INSULIN10 ML SC (01:41)
[2018-01-27] MEDS ORDERED: BREO ELLIPTA 11 EACH INH (01:43)
[2018-01-27] MEDS ORDERED: COLACE100 MG PO (01:44)
[2018-01-27] MEDS ORDERED: ACETAMINOPHEN325 MG PO (01:47)
[2018-01-27] MEDS ORDERED: ATIVAN0.5 MG PO (01:51)
[2018-01-27] MEDS ORDERED: MIRALAX17 GM PO (01:51)
[2018-01-27] MEDS ORDERED: ZOFRAN4 MG PO (01:52)
[2018-01-27 16:58] LABS: BASOPHILS 0.1 % (0-2); EOSINOPHILS 1.9 % (0-7); HEMATOCRIT 29.2 % (42.0-54.0); HEMOGLOBIN 9.4 g/dL (13.5-17.5); IMMATURE GRANULOCYTES 0.4 % (0-5); LYMPHOCYTES 5.4 % (15-50); MCH 27.6 pg (26.0-34.0); MCHC 32.2 g/dL (31.0-37.0); MCV 85.9 fL (80.0-100.0); MEAN PLATELET VOLUME 8.8 fL (7.4-10.4); NEUTROPHILS 84.2 % (40-80); PLATELET COUNT 245 10x3/uL (130-400); RDW 20.9 % (11.5-14.5); WBC 6.9 10x3/uL (4.8-10.8)
[2018-01-27 17:30] LABS: ALBUMIN 2.7 g/dL (3.4-5.0); ANION GAP 14.8 mmol/L (8-16); BILIRUBIN - TOTAL 0.87 mg/dL (0.2-1.3); CALCIUM 9.2 mg/dL (8.5-10.1); CARBON DIOXIDE 30.8 mmol/L (21.0-32.0); CREATININE - SERUM 2.4 mg/dL (0.6-1.3); POTASSIUM - SERUM 3.6 mmol/L (3.5-5.1); PROTEIN - SERUM 6.9 g/dL (6.4-8.2)
[2018-01-28 00:41] VITALS: BP 100/64
[2018-01-28 05:32] VITALS: BP 108/68
[2018-01-28 07:33] VITALS: BP 112/73
[2018-01-28 11:31] VITALS: BP 118/77
[2018-01-28 15:56] VITALS: BP 121/76
[2018-01-28 20:00] VITALS: BP 124/71
[2018-01-29] VITALS: BP 116/60
[2018-01-29 05:49] LABS: BASOPHILS 0 % (0-2); EOSINOPHILS 0 % (0-7); HEMATOCRIT 30.4 % (42.0-54.0); HEMOGLOBIN 9.8 g/dL (13.5-17.5); IMMATURE GRANULOCYTES 0.3 % (0-5); LYMPHOCYTES 1.3 % (15-50); MCH 27.5 pg (26.0-34.0); MCHC 32.2 g/dL (31.0-37.0); MCV 85.2 fL (80.0-100.0); MEAN PLATELET VOLUME 9.2 fL (7.4-10.4); MONOCYTES 3.4 % (2-11); PLATELET COUNT 255 10x3/uL (130-400); RBC 3.57 10x6/uL (4.20-6.10); RDW 20.5 % (11.5-14.5); WBC 7.6 10x3/uL (4.8-10.8)
[2018-01-29 06:11] LABS: % SATURATION 7 % (15-55); IRON 24 ug/dl (35-150); TOTAL IRON BIND CAPACITY 335 ug/dl (260-445); UNSAT IRON BIND CAPACITY 311 ug/dl (150-375)
[2018-01-29 06:15] LABS: ALBUMIN 2.7 g/dL (3.4-5.0); ANION GAP 15.5 mmol/L (8-16); BILIRUBIN - DIRECT 0.38 mg/dL (0.00-0.30); BILIRUBIN - INDIRECT 0.29 mg/dL (0.00-1.00); BILIRUBIN - TOTAL 0.67 mg/dL (0.2-1.3); CALCIUM 8.9 mg/dL (8.5-10.1); CARBON DIOXIDE 28.1 mmol/L (21.0-32.0); CREATININE - SERUM 2.4 mg/dL (0.6-1.3); POTASSIUM - SERUM 3.6 mmol/L (3.5-5.1); PROTEIN - SERUM 7.1 g/dL (6.4-8.2)
[2018-01-29 09:51] VITALS: BP 110/71
[2018-01-29 10:45] VITALS: BP 108/76
[2018-01-29 15:35] VITALS: BP 113/80
[2018-01-29 20:54] VITALS: BP 109/64
[2018-01-30] VITALS (7 sets, daily range): BP systolic 95–122; BP diastolic 51–73
[2018-01-30 05:40] LABS: BASOPHILS 0 % (0-2); EOSINOPHILS 0 % (0-7); HEMATOCRIT 29.9 % (42.0-54.0); HEMOGLOBIN 9.7 g/dL (13.5-17.5); IMMATURE GRANULOCYTES 0.4 % (0-5); LYMPHOCYTES 3.2 % (15-50); MCH 27.6 pg (26.0-34.0); MCHC 32.4 g/dL (31.0-37.0); MCV 84.9 fL (80.0-100.0); MEAN PLATELET VOLUME 8.9 fL (7.4-10.4); MONOCYTES 4.1 % (2-11); NEUTROPHILS 92.3 % (40-80); PLATELET COUNT 240 10x3/uL (130-400); RBC 3.52 10x6/uL (4.20-6.10); RDW 20.3 % (11.5-14.5); WBC 8.6 10x3/uL (4.8-10.8)
[2018-01-30 06:05] LABS: ANION GAP 13.7 mmol/L (8-16); CALCIUM 9.1 mg/dL (8.5-10.1); CARBON DIOXIDE 28.9 mmol/L (21.0-32.0); CREATININE - SERUM 2.1 mg/dL (0.6-1.3); POTASSIUM - SERUM 3.6 mmol/L (3.5-5.1)
[2018-01-30 06:14] LABS: FOLATE (FOLIC ACID) - SERUM 10.6 ng/mL (>3.0)
[2018-01-31 05:55] VITALS: BP 114/68
[2018-01-31 06:05] LABS: BASOPHILS 0 % (0-2); EOSINOPHILS 0 % (0-7); HEMATOCRIT 30.9 % (42.0-54.0); HEMOGLOBIN 9.7 g/dL (13.5-17.5); IMMATURE GRANULOCYTES 0.1 % (0-5); MCH 26.9 pg (26.0-34.0); MCHC 31.4 g/dL (31.0-37.0); MCV 85.6 fL (80.0-100.0); MEAN PLATELET VOLUME 9.3 fL (7.4-10.4); MONOCYTES 4.4 % (2-11); NEUTROPHILS 91.5 % (40-80); PLATELET COUNT 211 10x3/uL (130-400); RBC 3.61 10x6/uL (4.20-6.10); RDW 20.3 % (11.5-14.5); WBC 7.7 10x3/uL (4.8-10.8)
[2018-01-31 06:19] LABS: ANION GAP 14.5 mmol/L (8-16); CALCIUM 8.5 mg/dL (8.5-10.1); CARBON DIOXIDE 28.8 mmol/L (21.0-32.0)
[2018-01-31 06:24] LABS: POTASSIUM - SERUM 4.3 mmol/L (3.5-5.1)
[2018-01-31 08:38] VITALS: BP 113/70
[2018-01-31 11:24] VITALS: BP 109/68
[2018-01-31 16:05] VITALS: BP 126/66
[2018-01-31 20:15] VITALS: BP 108/68
[2018-02-01 00:30] VITALS: BP 114/65
[2018-02-01 06:11] LABS: BASOPHILS 0 % (0-2); EOSINOPHILS 0 % (0-7); HEMATOCRIT 31.5 % (42.0-54.0); HEMOGLOBIN 9.9 g/dL (13.5-17.5); IMMATURE GRANULOCYTES 0.1 % (0-5); LYMPHOCYTES 2.7 % (15-50); MCH 26.9 pg (26.0-34.0); MCHC 31.4 g/dL (31.0-37.0); MCV 85.6 fL (80.0-100.0); MEAN PLATELET VOLUME 9.2 fL (7.4-10.4); NEUTROPHILS 93.2 % (40-80); PLATELET COUNT 195 10x3/uL (130-400); RBC 3.68 10x6/uL (4.20-6.10); RDW 19.9 % (11.5-14.5)
[2018-02-01 06:24] VITALS: BP 111/74
[2018-02-01 06:40] LABS: ANION GAP 14.1 mmol/L (8-16); CARBON DIOXIDE 28.9 mmol/L (21.0-32.0); CREATININE - SERUM 1.8 mg/dL (0.6-1.3)
[2018-02-01 08:21] VITALS: BP 109/80
[2018-02-01 12:26] VITALS: BP 111/77
[2018-02-01 15:26] VITALS: BP 105/70
[2018-02-02] VITALS: BP 117/76
[2018-02-02 04:00] VITALS: BP 118/74
[2018-02-02 05:43] LABS: BASOPHILS 0 % (0-2); EOSINOPHILS 0 % (0-7); HEMATOCRIT 33.1 % (42.0-54.0); HEMOGLOBIN 10.5 g/dL (13.5-17.5); IMMATURE GRANULOCYTES 0.3 % (0-5); LYMPHOCYTES 3.9 % (15-50); MCH 27.1 pg (26.0-34.0); MCHC 31.7 g/dL (31.0-37.0); MCV 85.3 fL (80.0-100.0); MEAN PLATELET VOLUME 9.2 fL (7.4-10.4); MONOCYTES 3.8 % (2-11); PLATELET COUNT 190 10x3/uL (130-400); RBC 3.88 10x6/uL (4.20-6.10); RDW 20.1 % (11.5-14.5); WBC 7.9 10x3/uL (4.8-10.8)
[2018-02-02 06:32] LABS: ANION GAP 15.6 mmol/L (8-16); CALCIUM 9.4 mg/dL (8.5-10.1); CARBON DIOXIDE 28.6 mmol/L (21.0-32.0); CREATININE - SERUM 1.8 mg/dL (0.6-1.3); POTASSIUM - SERUM 4.2 mmol/L (3.5-5.1)
[2018-02-02 07:54] VITALS: BP 122/64
[2018-02-02 10:41] VITALS: BP 129/66
[2018-02-02 15:15] VITALS: BP 131/62
[2018-02-02 20:00] VITALS: BP 101/66
[2018-02-03] VITALS: BP 112/65
[2018-02-03 04:00] VITALS: BP 97/65
[2018-02-03 06:43] LABS: BASOPHILS 0 % (0-2); EOSINOPHILS 0 % (0-7); HEMATOCRIT 33.2 % (42.0-54.0); HEMOGLOBIN 10.5 g/dL (13.5-17.5); IMMATURE GRANULOCYTES 0.3 % (0-5); MCH 27.2 pg (26.0-34.0); MCHC 31.6 g/dL (31.0-37.0); MEAN PLATELET VOLUME 9.2 fL (7.4-10.4); MONOCYTES 4.6 % (2-11); NEUTROPHILS 91.1 % (40-80); PLATELET COUNT 180 10x3/uL (130-400); RBC 3.86 10x6/uL (4.20-6.10); WBC 8.8 10x3/uL (4.8-10.8)
[2018-02-03 06:52] LABS: CARBON DIOXIDE 28.5 mmol/L (21.0-32.0); CREATININE - SERUM 1.6 mg/dL (0.6-1.3); POTASSIUM - SERUM 4.5 mmol/L (3.5-5.1)
[2018-02-03 07:54] VITALS: BP 96/62
[2018-02-03 11:42] VITALS: BP 110/64
[2018-02-03 16:20] VITALS: BP 112/62
[2018-02-03 19:00] VITALS: BP 98/60
[2018-02-04 04:00] VITALS: BP 99/62
[2018-02-04 06:19] LABS: BASOPHILS 0 % (0-2); EOSINOPHILS 0 % (0-7); HEMATOCRIT 33.3 % (42.0-54.0); HEMOGLOBIN 10.6 g/dL (13.5-17.5); IMMATURE GRANULOCYTES 0.5 % (0-5); LYMPHOCYTES 4.8 % (15-50); MCH 27.3 pg (26.0-34.0); MCHC 31.8 g/dL (31.0-37.0); MCV 85.8 fL (80.0-100.0); MEAN PLATELET VOLUME 9.5 fL (7.4-10.4); MONOCYTES 3.1 % (2-11); NEUTROPHILS 91.6 % (40-80); PLATELET COUNT 171 10x3/uL (130-400); RBC 3.88 10x6/uL (4.20-6.10); RDW 20.1 % (11.5-14.5); WBC 9.7 10x3/uL (4.8-10.8)
[2018-02-04 06:33] LABS: ANION GAP 13.3 mmol/L (8-16); CALCIUM 8.6 mg/dL (8.5-10.1); CARBON DIOXIDE 28.2 mmol/L (21.0-32.0); CREATININE - SERUM 1.5 mg/dL (0.6-1.3); POTASSIUM - SERUM 4.5 mmol/L (3.5-5.1)
[2018-02-04 09:23] VITALS: BP 116/71
[2018-02-04 11:30] VITALS: BP 117/73
[2018-02-04 17:47] VITALS: BP 103/66
[2018-02-04 21:06] VITALS: BP 112/61
[2018-02-05 00:58] VITALS: BP 95/63
[2018-02-05 04:00] VITALS: BP 97/61
[2018-02-05 07:01] LABS: BASOPHILS 0 % (0-2); EOSINOPHILS 0.1 % (0-7); HEMATOCRIT 33.3 % (42.0-54.0); HEMOGLOBIN 10.6 g/dL (13.5-17.5); IMMATURE GRANULOCYTES 0.3 % (0-5); LYMPHOCYTES 5.5 % (15-50); MCH 27.5 pg (26.0-34.0); MCHC 31.8 g/dL (31.0-37.0); MCV 86.3 fL (80.0-100.0); MEAN PLATELET VOLUME 10.2 fL (7.4-10.4); MONOCYTES 4.4 % (2-11); NEUTROPHILS 89.7 % (40-80); PLATELET COUNT 175 10x3/uL (130-400); RBC 3.86 10x6/uL (4.20-6.10); RDW 20.4 % (11.5-14.5); WBC 10.3 10x3/uL (4.8-10.8)
[2018-02-05 07:17] LABS: ANION GAP 12.1 mmol/L (8-16); CARBON DIOXIDE 28.3 mmol/L (21.0-32.0); CREATININE - SERUM 1.5 mg/dL (0.6-1.3); POTASSIUM - SERUM 4.4 mmol/L (3.5-5.1)
[2018-02-05 08:34] VITALS: BP 102/59
[2018-02-05 11:47] VITALS: BP 112/70
[2018-02-05 16:15] VITALS: BP 90/60
[2018-02-05 20:26] VITALS: BP 101/61
[2018-02-06 00:34] VITALS: BP 108/63
[2018-02-06 04:00] VITALS: BP 142/65
[2018-02-06 04:11] LABS: BASOPHILS 0 % (0-2); EOSINOPHILS 0.1 % (0-7); HEMATOCRIT 33.5 % (42.0-54.0); HEMOGLOBIN 10.6 g/dL (13.5-17.5); IMMATURE GRANULOCYTES 0.6 % (0-5); LYMPHOCYTES 5.3 % (15-50); MCH 27.1 pg (26.0-34.0); MCHC 31.6 g/dL (31.0-37.0); MCV 85.7 fL (80.0-100.0); MEAN PLATELET VOLUME 9.6 fL (7.4-10.4); MONOCYTES 3.5 % (2-11); NEUTROPHILS 90.5 % (40-80); PLATELET COUNT 163 10x3/uL (130-400); RBC 3.91 10x6/uL (4.20-6.10); RDW 20.3 % (11.5-14.5); WBC 10.7 10x3/uL (4.8-10.8)
[2018-02-06 04:43] LABS: ANION GAP 13.8 mmol/L (8-16); CALCIUM 8.7 mg/dL (8.5-10.1); CARBON DIOXIDE 26.6 mmol/L (21.0-32.0); CREATININE - SERUM 1.5 mg/dL (0.6-1.3); POTASSIUM - SERUM 4.4 mmol/L (3.5-5.1)
[2018-02-06 08:38] VITALS: BP 95/59
[2018-02-06 10:43] VITALS: BP 102/62
[2018-02-06 15:34] VITALS: BP 108/66
[2018-02-06 20:30] VITALS: BP 109/69
[2018-02-07 00:30] VITALS: BP 98/57
[2018-02-07 04:30] VITALS: BP 105/62
[2018-02-07 06:07] LABS: BASOPHILS 0 % (0-2); EOSINOPHILS 0.1 % (0-7); HEMATOCRIT 34.1 % (42.0-54.0); IMMATURE GRANULOCYTES 0.6 % (0-5); LYMPHOCYTES 9.7 % (15-50); MCH 27.7 pg (26.0-34.0); MCHC 32.3 g/dL (31.0-37.0); MCV 85.9 fL (80.0-100.0); MEAN PLATELET VOLUME 9.1 fL (7.4-10.4); MONOCYTES 0.2 % (2-11); NEUTROPHILS 89.4 % (40-80); PLATELET COUNT 137 10x3/uL (130-400); RBC 3.97 10x6/uL (4.20-6.10); RDW 20.4 % (11.5-14.5); WBC 10.4 10x3/uL (4.8-10.8)
[2018-02-07 06:20] LABS: ANION GAP 12.4 mmol/L (8-16); CALCIUM 8.6 mg/dL (8.5-10.1); CARBON DIOXIDE 27.7 mmol/L (21.0-32.0); CREATININE - SERUM 1.5 mg/dL (0.6-1.3); POTASSIUM - SERUM 4.1 mmol/L (3.5-5.1)
[2018-02-07 08:22] VITALS: BP 101/63
[2018-02-07 11:55] VITALS: BP 106/65
[2018-02-07 15:42] VITALS: BP 101/62
[2018-02-07 21:53] VITALS: BP 101/59
[2018-02-08 02:40] VITALS: BP 109/67
[2018-02-08 06:44] VITALS: BP 110/67
[2018-02-08 10:17] VITALS: BP 101/57
[2018-02-08 12:33] VITALS: BP 109/61
[2018-02-08 18:36] VITALS: BP 95/67
[2018-02-08 20:00] VITALS: BP 113/72
[2018-02-09 04:00] VITALS: BP 118/70
[2018-02-09 06:44] LABS: BASOPHILS 0 % (0-2); EOSINOPHILS 0.6 % (0-7); HEMATOCRIT 36.7 % (42.0-54.0); HEMOGLOBIN 11.6 g/dL (13.5-17.5); LYMPHOCYTES 5.4 % (15-50); MCH 27.7 pg (26.0-34.0); MCHC 31.6 g/dL (31.0-37.0); MCV 87.6 fL (80.0-100.0); MEAN PLATELET VOLUME 10.1 fL (7.4-10.4); MONOCYTES 6.8 % (2-11); NEUTROPHILS 86.2 % (40-80); PLATELET COUNT 154 10x3/uL (130-400); RBC 4.19 10x6/uL (4.20-6.10); RDW 21.1 % (11.5-14.5); WBC 10.7 10x3/uL (4.8-10.8)
[2018-02-09 06:52] LABS: ANION GAP 12.3 mmol/L (8-16); CALCIUM 8.4 mg/dL (8.5-10.1); CREATININE - SERUM 1.5 mg/dL (0.6-1.3); POTASSIUM - SERUM 4.3 mmol/L (3.5-5.1)
[2018-02-09 08:25] VITALS: BP 103/60
[2018-02-09 12:28] VITALS: BP 108/66
[2018-02-09 18:47] VITALS: BP 101/62
[2018-02-09 20:00] VITALS: BP 99/61
[2018-02-10] VITALS (7 sets, daily range): BP systolic 98–110; BP diastolic 51–67
[2018-02-11 02:33] VITALS: BP 103/57
[2018-02-11 06:02] VITALS: BP 95/54
[2018-02-11 08:14] VITALS: BP 108/64
[2018-02-11 11:29] VITALS: BP 102/61
[2018-02-11] MEDS ORDERED: FERROUS SULFAT325 MG PO (15:07)
[2018-02-11] MEDS ORDERED: XOPENEX 0.0.63 MG/3 UPD (15:07)
[2018-02-11] MEDS ORDERED: BROVANA15 MCG/2 M INH (15:07)
[2018-02-11] MEDS ORDERED: ATROVENT 0.02%2.5 ML UPD (15:07)
[2018-02-11] MEDS ORDERED: SALINE NASAL SP45 ML NASAL (15:08)
[2018-02-11] MEDS ORDERED: PREDNISONE10 MG PO (15:09)
[2018-02-11] MEDS ORDERED: HUMULIN R100 U/ML SC (15:09)
[2018-02-11 15:16] VITALS: BP 104/58
[2018-03-16] MEDS ORDERED: ELIQUIS2.5 MG PO (10:12)
[2018-03-16] MEDS ORDERED: ASPIRIN EC81 M1 PO (10:13)
[2018-03-16] MEDS ORDERED: CORDARONE200 MG PO (10:18)
[2018-03-16] MEDS ORDERED: ZOLOFT25 MG PO (10:20)
== END 2018-02-11 18:54 | DRG 291 ==
LOC: D.ER 14:22 → D.M2 18:46 → D.EDHOLD 18:46 → D.M2 20:35 → D.SDCHOLD 01-28 11:11 → D.M2 01-28 11:11 → D.SDCHOLD 01-28 11:12 → D.M2 02-11 18:54
PROVIDERS: Family Medicine; Internal Medicine; Internal Medicine Nephrology; Internal Medicine Pulmonary Disease; Physician Assistant Medical
DX: I13.0 Hypertensive heart and chronic kidney disease with heart failure and stage 1 through stage 4 chronic kidney disease, or unspecified chronic kidney disease (principal); I50.33 Acute on chronic diastolic (congestive) heart failure; J18.9 Pneumonia, unspecified organism; J96.21 Acute and chronic respiratory failure with hypoxia; N18.4 Chronic kidney disease, stage 4 (severe); J98.11 Atelectasis; J44.1 Chronic obstructive pulmonary disease with (acute) exacerbation; J44.0 Chronic obstructive pulmonary disease with (acute) lower respiratory infection; M35.1 Other overlap syndromes; N17.9 Acute kidney failure, unspecified; E87.1 Hypo-osmolality and hyponatremia; B37.49 Other urogenital candidiasis; E11.22 Type 2 diabetes mellitus with diabetic chronic kidney disease; E11.65 Type 2 diabetes mellitus with hyperglycemia; J20.9 Acute bronchitis, unspecified; I25.10 Atherosclerotic heart disease of native coronary artery without angina pectoris; I48.2 Chronic atrial fibrillation; Z79.01 Long term (current) use of anticoagulants; D63.1 Anemia in chronic kidney disease; I08.0 Rheumatic disorders of both mitral and aortic valves; E03.9 Hypothyroidism, unspecified; N40.1 Benign prostatic hyperplasia with lower urinary tract symptoms; N48.5 Ulcer of penis; Z95.5 Presence of coronary angioplasty implant and graft; K59.00 Constipation, unspecified

== ENCOUNTER 2018-02-11 17:06 | Inpatient (IN) | payer MEDICARE ==
[~2018-02-11] VITALS: Ht 182.9 cm; Wt 93.0 kg
--- NOTE | ~2018-02-11 | DS ---
PATIENT:SALENA MCKEON :31 MEDICAL RECORD: [id number] DISCHARGE SUMMARY ADMISSION DATE: 02/11/18 DISCHARGE DATE: 02/23/18 This is a discharged dated 02/23/2018 from inpatient rehabilitation. PRIMARY DIAGNOSES: Decreased functional ability and ability to provide activities of daily living secondary to CHF myopathy. SECONDARY DIAGNOSES: 1. Chronic atrial fibrillation, CKD stage IV. 2. Coronary artery disease. 3. Aortic stenosis. 4. Diabetes. 5. Hypothyroidism. 6. Hypokalemia. 7. Anemia. 8. Sacral decubitus. 9. Urinary retention. 10. Peripheral vascular disease. 11. Benign prostatic hypertrophy. 12. Anasarca. 13. Bilateral pleural effusions. HOSPITAL COURSE: Full H&P is located elsewhere on the chart on this 82-year-old male who was admitted to inpatient rehab for physical therapy and occupational therapy to improve gait, transfer skills, bed mobility, and activities of daily living to a modified independent level. He was evaluated by PT and OT and their plans of care were followed. He required retirement care for observation and assessment, medication administration, as well as wound care of sacral decubitus. Electrolytes were managed by protocol. He was on Brovana and other medications nebulized for respiratory support. He was seen by speech therapy as well. Fingerstick blood sugars were monitored throughout his hospital stay with appropriate adjustment in medications as needed. He was cooperative with therapies, progressing towards goals. Case management was involved for discharge planning. He was considered stable for discharge on 02/23/2018. DISCHARGE MEDICATIONS: As per discharge medication reconciliation. DISCHARGE DISPOSITION: The patient is discharged home. He will continue with his current diet and level of activity. He will have home health for continued nursing, PT and OT. He will have wheelchair set up from [facility] and will follow with primary care and specialist as directed. At least 30 minutes was spent in this discharge activity. TRANSINT:[id number] Voice Confirmation ID: [id number] DOCUMENT ID: [id number] Dictated By: SALVADOR URENA I have interviewed/examined the above patient and agree with these documented findings. DISCHARGE SUMMARY REPORT [id number] SALENA MCKEON ANGE ELLISON MD at 1355 at 1349 CC: [id number] DICTATION DATE: 03/14/18 1532 POCKET SETTER: 03/15/18 0907 DIS IN 02/23/18 [facility] [address] [id number]
[~2018-02-11 17:06] MED LIST changes: +ACETAMINOPHEN325 MG PO; +ATIVAN0.5 MG PO; +ATROVENT 0.02%2.5 ML UPD; +BREO ELLIPTA 11 EACH INH; +BROVANA15 MCG/2 M INH; +COLACE100 MG PO; +FERROUS SULFAT325 MG PO; +HUMULIN R100 U/ML; +HUMULIN R100 U/ML SC; +LANTUS INSULIN10 ML SC; +MIRALAX17 GM PO; +SALINE NASAL SP45 ML NASAL; +XARELTO15 MG PO; +XOPENEX 0.0.63 MG/3 UPD; +ZOFRAN4 MG PO
[2018-02-11 20:19] VITALS: BP 109/59; BMI 27.8
[2018-02-12 06:01] LABS: BASOPHILS 0 % (0-2); EOSINOPHILS 0.6 % (0-7); HEMATOCRIT 33.8 % (42.0-54.0); HEMOGLOBIN 10.8 g/dL (13.5-17.5); IMMATURE GRANULOCYTES 0.8 % (0-5); LYMPHOCYTES 5.4 % (15-50); MCH 28.2 pg (26.0-34.0); MCV 88.3 fL (80.0-100.0); MEAN PLATELET VOLUME 9.5 fL (7.4-10.4); MONOCYTES 4.4 % (2-11); NEUTROPHILS 88.8 % (40-80); PLATELET COUNT 133 10x3/uL (130-400); RBC 3.83 10x6/uL (4.20-6.10); RDW 21.5 % (11.5-14.5); WBC 10.3 10x3/uL (4.8-10.8)
[2018-02-12 06:20] LABS: ANION GAP 12.2 mmol/L (8-16); CALCIUM 8.1 mg/dL (8.5-10.1); CARBON DIOXIDE 27.8 mmol/L (21.0-32.0); CREATININE - SERUM 1.5 mg/dL (0.6-1.3)
[2018-02-12 09:45] VITALS: BP 90/49
[2018-02-12 10:14] VITALS: Ht 182.9 cm; Wt 93.0 kg
[2018-02-12 19:15] VITALS: BP 113/75
[2018-02-13 08:00] VITALS: BP 94/52
[2018-02-13 19:25] VITALS: BP 105/60
[2018-02-14 08:00] VITALS: BP 101/64
[2018-02-14 22:28] VITALS: BP 102/64
[2018-02-15 06:09] LABS: BASOPHILS 0.1 % (0-2); EOSINOPHILS 0.9 % (0-7); HEMOGLOBIN 10.4 g/dL (13.5-17.5); IMMATURE GRANULOCYTES 0.6 % (0-5); LYMPHOCYTES 5.8 % (15-50); MCHC 31.5 g/dL (31.0-37.0); MCV 88.9 fL (80.0-100.0); MEAN PLATELET VOLUME 9.1 fL (7.4-10.4); MONOCYTES 6.1 % (2-11); NEUTROPHILS 86.5 % (40-80); PLATELET COUNT 136 10x3/uL (130-400); RBC 3.71 10x6/uL (4.20-6.10); RDW 21.7 % (11.5-14.5); WBC 8.5 10x3/uL (4.8-10.8)
[2018-02-15 06:26] LABS: ANION GAP 12.9 mmol/L (8-16); CALCIUM 8.1 mg/dL (8.5-10.1); CARBON DIOXIDE 27.7 mmol/L (21.0-32.0); CREATININE - SERUM 1.6 mg/dL (0.6-1.3); POTASSIUM - SERUM 3.6 mmol/L (3.5-5.1)
[2018-02-15 08:00] VITALS: BP 105/56
[2018-02-15 22:59] VITALS: BP 109/74
[2018-02-16 08:00] VITALS: BP 105/63
[2018-02-16 19:00] VITALS: BP 100/61
[2018-02-17 07:36] LABS: BASOPHILS 0.1 % (0-2); EOSINOPHILS 1.3 % (0-7); HEMATOCRIT 32.5 % (42.0-54.0); HEMOGLOBIN 10.4 g/dL (13.5-17.5); IMMATURE GRANULOCYTES 0.5 % (0-5); LYMPHOCYTES 4.7 % (15-50); MCH 28.5 pg (26.0-34.0); MEAN PLATELET VOLUME 9.2 fL (7.4-10.4); MONOCYTES 5.3 % (2-11); NEUTROPHILS 88.1 % (40-80); PLATELET COUNT 140 10x3/uL (130-400); RBC 3.65 10x6/uL (4.20-6.10); RDW 22.2 % (11.5-14.5); WBC 8.3 10x3/uL (4.8-10.8)
[2018-02-17 07:56] LABS: ANION GAP 13.2 mmol/L (8-16); CALCIUM 8.2 mg/dL (8.5-10.1); CARBON DIOXIDE 27.2 mmol/L (21.0-32.0); CREATININE - SERUM 1.6 mg/dL (0.6-1.3); POTASSIUM - SERUM 3.4 mmol/L (3.5-5.1)
[2018-02-17 09:30] VITALS: BP 97/57
[2018-02-17 19:05] VITALS: BP 95/56
[2018-02-18 06:58] VITALS: BP 113/57
[2018-02-18 19:55] VITALS: BP 92/54
[2018-02-19 06:24] LABS: BASOPHILS 0 % (0-2); HEMATOCRIT 34.2 % (42.0-54.0); HEMOGLOBIN 10.9 g/dL (13.5-17.5); IMMATURE GRANULOCYTES 0.5 % (0-5); LYMPHOCYTES 8.2 % (15-50); MCH 28.8 pg (26.0-34.0); MCHC 31.9 g/dL (31.0-37.0); MCV 90.5 fL (80.0-100.0); MEAN PLATELET VOLUME 9.5 fL (7.4-10.4); MONOCYTES 5.6 % (2-11); NEUTROPHILS 83.7 % (40-80); PLATELET COUNT 161 10x3/uL (130-400); RBC 3.78 10x6/uL (4.20-6.10)
[2018-02-19 06:35] LABS: WBC 6.1 10x3/uL (4.8-10.8)
[2018-02-19 07:06] LABS: ANION GAP 15.9 mmol/L (8-16); CALCIUM 8.2 mg/dL (8.5-10.1); CARBON DIOXIDE 25.9 mmol/L (21.0-32.0); CREATININE - SERUM 1.6 mg/dL (0.6-1.3); POTASSIUM - SERUM 3.8 mmol/L (3.5-5.1)
[2018-02-19 08:14] VITALS: BP 101/61
[2018-02-19 23:01] VITALS: BP 92/54
[2018-02-20 07:11] VITALS: BP 115/58
[2018-02-20 19:39] VITALS: BP 97/58
[2018-02-21 08:00] VITALS: BP 97/58
[2018-02-21 19:55] VITALS: BP 98/58
[2018-02-22 05:57] LABS: BASOPHILS 0.2 % (0-2); EOSINOPHILS 3.1 % (0-7); HEMATOCRIT 33.8 % (42.0-54.0); HEMOGLOBIN 10.7 g/dL (13.5-17.5); IMMATURE GRANULOCYTES 0.6 % (0-5); MCH 28.9 pg (26.0-34.0); MCHC 31.7 g/dL (31.0-37.0); MCV 91.4 fL (80.0-100.0); MEAN PLATELET VOLUME 9.3 fL (7.4-10.4); MONOCYTES 10.2 % (2-11); NEUTROPHILS 77.9 % (40-80); PLATELET COUNT 199 10x3/uL (130-400); RDW 22.5 % (11.5-14.5); WBC 4.9 10x3/uL (4.8-10.8)
[2018-02-22 06:01] LABS: ANION GAP 13.1 mmol/L (8-16); CALCIUM 8.3 mg/dL (8.5-10.1); CARBON DIOXIDE 25.1 mmol/L (21.0-32.0); CREATININE - SERUM 1.6 mg/dL (0.6-1.3); POTASSIUM - SERUM 4.2 mmol/L (3.5-5.1)
[2018-02-22 08:26] VITALS: BP 90/54
[2018-02-22 20:05] VITALS: BP 106/63
[2018-02-23 08:04] VITALS: BP 107/60
[2018-02-23] MEDS ORDERED: K-DUR20 MEQ PO (10:23)
[2018-03-16] MEDS ORDERED: ELIQUIS2.5 MG PO (10:12)
[2018-03-16] MEDS ORDERED: ASPIRIN EC81 M1 PO (10:13)
[2018-03-16] MEDS ORDERED: CORDARONE200 MG PO (10:18)
[2018-03-16] MEDS ORDERED: ZOLOFT25 MG PO (10:20)
== END 2018-02-23 14:19 | disposition home health service (06) | DRG 91 ==
LOC: D.REHAB 17:06
PROVIDERS: Emergency Medicine; Family Medicine
DX: G72.89 Other specified myopathies (principal); I50.43 Acute on chronic combined systolic (congestive) and diastolic (congestive) heart failure; J96.21 Acute and chronic respiratory failure with hypoxia; J18.8 Other pneumonia, unspecified organism; I13.0 Hypertensive heart and chronic kidney disease with heart failure and stage 1 through stage 4 chronic kidney disease, or unspecified chronic kidney disease; N17.9 Acute kidney failure, unspecified; J90 Pleural effusion, not elsewhere classified; J81.1 Chronic pulmonary edema; E11.22 Type 2 diabetes mellitus with diabetic chronic kidney disease; N18.9 Chronic kidney disease, unspecified; I48.2 Chronic atrial fibrillation; J44.9 Chronic obstructive pulmonary disease, unspecified; Y95 Nosocomial condition; E03.9 Hypothyroidism, unspecified; N40.1 Benign prostatic hyperplasia with lower urinary tract symptoms; R53.81 Other malaise; J45.909 Unspecified asthma, uncomplicated; I73.9 Peripheral vascular disease, unspecified; E11.65 Type 2 diabetes mellitus with hyperglycemia

== ENCOUNTER 2018-03-17 05:23 | Day surgery (SDC) | payer MEDICARE ==
[2018-03-16 11:24] LABS: BASOPHILS 0.3 % (0-2); HEMATOCRIT 34.4 % (42.0-54.0); HEMOGLOBIN 11.2 g/dL (13.5-17.5); IMMATURE GRANULOCYTES 0.7 % (0-5); LYMPHOCYTES 6.7 % (15-50); MCH 29.2 pg (26.0-34.0); MCHC 32.6 g/dL (31.0-37.0); MCV 89.6 fL (80.0-100.0); MEAN PLATELET VOLUME 8.9 fL (7.4-10.4); MONOCYTES 7.4 % (2-11); NEUTROPHILS 83.9 % (40-80); RBC 3.84 10x6/uL (4.20-6.10); RDW 19.5 % (11.5-14.5); WBC 10.5 10x3/uL (4.8-10.8)
[2018-03-16 11:27] LABS: PLATELET COUNT 310 10x3/uL (130-400)
[2018-03-16 11:37] LABS: ANION GAP 13.3 mmol/L (8-16); CALCIUM 9.3 mg/dL (8.5-10.1); CARBON DIOXIDE 33.5 mmol/L (21.0-32.0); CREATININE - SERUM 1.8 mg/dL (0.6-1.3); POTASSIUM - SERUM 3.8 mmol/L (3.5-5.1)
[~2018-03-17] VITALS: Ht 182.9 cm; Wt 77.3 kg
--- NOTE | ~2018-03-17 | OP ---
PATIENT NAME: SALENA MCKEON MEDICAL RECORD: [id number] :31 LOCATION:D.OPS ADMISSION DATE: SURGEON: BHAVESH OLIVER MD DATE OF OPERATION: 03/17/2018 SURGEON: Bhavesh Oliver MD ANESTHESIA: General anesthesia by Kalpesh Anderson CRNA PREOPERATIVE DIAGNOSES: Obstructive BPH, urinary retention. PROCEDURE: Cystoscopy, GreenLight laser transurethral resection of the prostate (TURP), power 80-100 espinoza, energy 43,660 kilo joules, laser on time 8 minutes 20 seconds. FINDINGS: The patient has pressure ulcers on both heels of the sacrum and the dorsum of the penis. On cystoscopy, he has a normal penile urethra. There is trilobar hyperplasia of the prostate. Within the bladder, there are single ureteral orifices bilaterally. No bladder tumors were seen. The bladder is trabeculated. BLOOD LOSS: None. CLINICAL HISTORY: This is an 82-year-old male, who has a history of severe cardiovascular disease including aortic stenosis, congestive heart failure, deep venous thrombosis, and diabetes mellitus times 20 years. He was hospitalized for CHF and he was in urinary retention. At that time, I started him on finasteride and tamsulosin. He has had about 4 months of medical treatment for his BPH and yet he is still unable to void. He now wishes to have a GreenLight laser TURP performed in order to try to resume spontaneous voiding. His senior quality technician has performed a balloon dilation of his aortic stenosis as a temporizing measure. His cardiovascular surgeon will not perform his aortic valve replacement as long as he has a catheter in, so this is the reason that we need to try to get him catheter free. We obtained cardiac clearance from his senior quality technician. He is allergic to TIKOSYN and VYTORIN. He was given Ancef 2 grams IV supply chain consultant to the OR. He is aware of the risks of surgery including bleeding, infection, urinary incontinence, retrograde ejaculation and regrowth of the prostate BPH tissue with time. He also has a malleable penile prosthesis in place. DESCRIPTION OF PROCEDURE: The patient was given induction of general anesthesia. He was then placed in the dorsal lithotomy position. As we placed his feet in stirrups, we noticed that he has decubitus ulcers on both heels. There was also quite severe ulcer on the dorsum of his penis from his indwelling Le catheter, putting pressure on it. His Le catheter was removed and he was prepped and draped. Cystoscopy was performed using the visual obturator on the laser resectoscope. A 30-degree lens was used for visualization. Findings are as outlined above. He was recently on Eliquis, which was removed about 3 days ago. He has some irritation of the bladder from the indwelling Le catheter, but no bladder tumors were seen. We then switched to the laser resection bridge. The laser fiber was introduced. Resection went from the bladder neck level to just proximal to the verumontanum. We initially took down the posterior wall and the median lobe. Then, each of the lateral lobes was taken down in turn. There was minimal bleeding. Towards the end of the procedure, the tissue started to dry out and we had to increase the power level OPERATIVE REPORT [id number] SALENA MCKEON to 100 espinoza. On the right apex, there was a slight bit of bleeding, which was easily controlled by just continuing to cauterize the tissue by resecting more with the laser fiber. At the end of the procedure, there was a clear channel from the verumontanum all the way through the bladder neck. We placed the guidewire through the scope into the bladder. Once the wire was in the bladder, the scope was removed. A 20-Mauritanian 3-way Le catheter was converted to a [place] tip catheter and this catheter was then applied over the guidewire into the bladder. Once the catheter was fully in the bladder, then we inflated the balloon with 20 cc of sterile water. The guidewire was removed and then the catheter was put to bag drainage. The inflow port has a cap put in to prevent leakage. The patient will be going home today with a script for Tylenol No. 3. I will see him in the office in 1-2 days to remove the Le catheter for a voiding trial. TRANSINT:[id number] Voice Confirmation ID: [id number] DOCUMENT ID: [id number] BHAVESH OLIVER MD at 0847 CC: [id number] DICTATION DATE: 03/17/18900 MIXER HELPER: 03/17/18 1227 [facility] 03/17/18 [place] [address]
[~2018-03-17 05:23] MED LIST changes: +ASPIRIN EC81 M1 PO; +ZOLOFT25 MG PO
[2018-03-17] MEDS ORDERED: ELIQUIS2.5 MG PO (06:25)
[2018-03-17] MEDS ORDERED: JANUVIA50 MG PO (06:26)
[2018-03-17] MEDS ORDERED: FLOMAX0.4 MG PO (06:27)
[2018-03-17] MEDS ORDERED: BAYER CHEWABLE81 MG PO (06:27)
[2018-03-17] MEDS ORDERED: GLIMEPIRIDE2 MG PO (06:28)
[2018-03-17] MEDS ORDERED: SYNTHROID125 MCG PO (06:28)
[2018-03-17] MEDS ORDERED: PACERONE200 MG (06:29)
[2018-03-17] MEDS ORDERED: SINGULAIR10 MG PO (06:30)
[2018-03-17] MEDS ORDERED: ZOLOFT25 MG PO (06:30)
[2018-03-17] MEDS ORDERED: PROSCAR5 MG PO (06:32)
[2018-03-17] MEDS ORDERED: KLOR-CON 1010 MEQ PO (06:32)
[2018-03-17] MEDS ORDERED: LASIX80 MG PO (06:33)
[2018-03-17] MEDS ORDERED: COMBIVENT RESPIM4 GM INH (06:35)
[2018-03-17] MEDS ORDERED: PROTONIX40 MG PO (06:36)
[2018-03-17] MEDS ORDERED: ADVAIR 250/501 DISK INH (06:36)
[2018-03-17] MEDS ORDERED: XOPENEX IN0.31 MG/3 UPD (06:38)
[2018-03-17] MEDS ORDERED: METOLAZONE2.5 MG PO (06:40)
[2018-03-17] MEDS ORDERED: MUCINEX600 MG PO (06:41)
[2018-03-17 07:23] VITALS: BP 98/34; Ht 182.9 cm; Wt 77.3 kg
== END 2018-03-17 10:35 | disposition home or self-care (01) ==
LOC: D.OPS 05:23 → D.PAN 07:30 → D.OPS 07:30
PROVIDERS: Anesthesiology
DX: N40.1 Benign prostatic hyperplasia with lower urinary tract symptoms (principal); N13.8 Other obstructive and reflux uropathy; R33.8 Other retention of urine; I25.10 Atherosclerotic heart disease of native coronary artery without angina pectoris; I35.0 Nonrheumatic aortic (valve) stenosis; I50.9 Heart failure, unspecified; Z86.718 Personal history of other venous thrombosis and embolism; Z79.01 Long term (current) use of anticoagulants; Z88.8 Allergy status to other drugs, medicaments and biological substances

== ENCOUNTER 2018-04-04 14:21 | Inpatient (IN) | payer MEDICARE ==
[~2018-04-04] VITALS: Ht 182.9 cm; Wt 71.7 kg
--- NOTE | ~2018-04-04 | OP ---
PATIENT NAME: SALENA MCKEON MEDICAL RECORD: [id number] :33 LOCATION:[id number] ADMISSION DATE:04/04/18 SURGEON: ERICA OLIVER MD DATE OF OPERATION: 04/07/2018 SURGEON: Erica Oliver MD ANESTHESIA: MAC by Eleuterio Calixto MD DIAGNOSES: 1. Urinary tract infection with pseudomonas and MRSA. 2. Bladder clots with urinary retention. PROCEDURES: Cystoscopy and bladder clot evacuation. FINDINGS: Well-resected prostate. Blood clots in the bladder. SPECIMENS: None. BLOOD LOSS: None. CLINICAL HISTORY: This is an 82-year-old male. He has quite significant cardiovascular problems. He has aortic stenosis as well as chronic atrial fibrillation. He is on Eliquis. He has been in urinary retention. Few weeks ago, we performed a GreenLight laser TURP on him. He was able to void postoperatively for a few days and then he got very constipated and then he went into urinary retention. His family physician put a Le catheter into him. We saw him in the office and attempted a voiding trial and he failed and he had another catheter put in. He does have diabetes mellitus also with some neuropathy and he may have a degree of a neurogenic bladder and bowel. In the interim, he had restarted his Eliquis, and this past weekend, he was readmitted to hospital with gross hematuria from a UTI. His urine cultures have grown pseudomonas and MRSA. He was given Zosyn earlier today. We just found about the MRSA and we gave him 1 gram of vancomycin. He has not been able to void. This is in part because of blood clots which obstruct his bladder outlet. Therefore, we are going to remove all the blood clots out of him. These blood clots are also entrapping bacteria and will perpetuate his urinary tract infection. Because of his severe aortic stenosis, we are going to do this under MAC. PROCEDURE: The patient was given IV sedation. He was placed in the dorsal lithotomy position. He was prepped and draped. We inserted lidocaine jelly into the urethra. A 21-Spanish cystoscope with a 30-degree lens was used for visualization. There was no urethral stricture. Prostatic urethra was well resected. Going into the bladder, large clots were seen. The lens of the scope was removed, leaving the sheath in place. I used the Sweetie syringe and evacuated all the clots out of the bladder. At the end of the procedure, I could no longer see any clots floating around in the bladder. The scope was then removed and a 20-Spanish 3-way Le catheter was inserted. It was put to bag drainage. The patient will also be given some Lasix to help with what he seems to have now, which is pulmonary edema. TRANSINT:[id number] Voice Confirmation ID: [id number] DOCUMENT ID: [id number] OPERATIVE REPORT [id number] SALENA MCKEON ROBERT S MD at 1350 CC: [id number] DICTATION DATE: 04/07/18 0953 SERVICE SPECIALIST: 04/07/18 1336 ADM IN [place] [id number] [place] [address]
--- NOTE | ~2018-04-04 | CN ---
PATIENT NAME:SALENA ERVIN MEDICAL RECORD: [id number] : 31 LOCATION:[id number] ADMIT DATE: 04/04/18 ACCOUNT: [id number] CONSULTING PHYSICIAN: DIRK INIGUEZ MD REFERRING PHYSICIAN: KEMAL BRISENO MD DATE OF CONSULTATION: 04/08/2018 CONSULT REQUESTING PHYSICIAN: Dr. Marcelino Nguyen REASON FOR CONSULTATION: Hbqow-nm-nmhsgoe hypoxic respiratory failure. HISTORY OF PRESENT ILLNESS: Mr. Ervin is an 82-year-old gentleman, very well known to me with a history of COPD, congestive heart failure. Recently, he underwent a TURP. He has a catheter in place and removed and the patient having hematuria, taken to the OR and catheter was placed back. Urine culture showed UTI with pseudomonas and MRSA. Now, the patient very weak and lethargic, the history was taken mainly by talking to the patient's daughter. REVIEW OF SYSTEMS: Mainly in the history of present illness. PAST MEDICAL HISTORY: 1. Asthma. 2. Chronic obstructive pulmonary disease. 3. Hypertension. 4. Congestive heart failure. 5. History of aortic valve stenosis. 6. Coronary artery disease. 7. History of pneumonia. 8. History of empyema. 9. History of skin cancer. PAST SURGICAL HISTORY: 1. He has thoracotomy and decortication. 2. Appendectomy. 3. Right hip replacement. 4. Left knee replacement. 5. Bilateral shoulder arthroscopic surgery. 6. Now he is status post TURP. ALLERGIES: HE IS ALLERGIC TO TIKOSYN AND VYTORIN. MEDICATIONS: apiOmat is reviewed. PERSONAL AND SOCIAL HISTORY: The patient is an ex-smoker. He is a nondrinker. FAMILY HISTORY: Noncontributory. PHYSICAL EXAMINATION: GENERAL: Now, the patient is very lethargic. VITAL SIGNS: The blood pressure is 125/80, pulse is 86, respiration is 20, temperature 97.3, SpO2 is 94% on 2 liters nasal cannula. HEENT: Conjunctivae are pink. Sclerae are not icteric. NECK: Supple, no JVD. CHEST: There are bibasilar crackles. No wheezing. HEART: Rhythm regular, normal sound, there is grade II/ systolic murmur. CONSULT REPORT [id number] SALENA ERVIN ABDOMEN: Soft, bowel sounds present. No hepatosplenomegaly. RECTAL: Deferred. EXTREMITIES: No cyanosis, no clubbing. There is no pedal edema. SKIN: Warm, normal turgor. CENTRAL NERVOUS SYSTEM: The patient is awake and alert, but he is very lethargic. IMAGING: Chest radiograph, there is mild increased interstitial marking. OTHER LABORATORY DATA: CBC: The WBC is 17.5, hemoglobin 9.3, hematocrit 29.1, the platelet count 236. Chemistry: Sodium is 131, potassium 5.1, BUN is 67, and creatinine is 2. IMPRESSION: 1. Gdthe-zl-ydrhkfe hypoxic respiratory failure. 2. Urinary tract infection. 3. Pulmonary edema. 4. Chronic obstructive pulmonary disease acute exacerbation, moderate pulmonary hypertension. 5. Congestive heart failure, possible diastolic dysfunction. 6. Leukocytosis. 7. Dosoq-me-mfhcqtf renal failure. 8. Status post prostatectomy. RECOMMENDATION: 1. Continue vancomycin and Zosyn per Dr. Mccormick. 2. Start methylprednisolone IV. Start albuterol/ipratropium nebulizer, Brovana and budesonide nebulizer. 3. The patient on fluid resuscitation. We have to watch very closely for congestive heart failure and fluid overload. 4. Follow up labs and chest radiograph. Discussed with Dr. Molina, discussed with Dr. Mccormick as well as with Dr. Calabrese and Dr. Marcelino Nguyen. The patient is DNR. TRANSINT:[id number] Voice Confirmation ID: [id number] DOCUMENT ID: [id number] DIRK INIGUEZ MD CC: [id number] DICTATION DATE: 04/08/18 [address] DIRECTOR: 04/08/182052 ADM IN [place] [id number] [place] [address]
[~2018-04-04 14:21] MED LIST changes: +BAYER CHEWABLE81 MG PO; +KLOR-CON 1010 MEQ PO; +LASIX80 MG PO; +PACERONE200 MG; +XOPENEX IN0.31 MG/3 UPD
[2018-04-04 14:59] LABS: HEMATOCRIT 31.5 % (42.0-54.0); MCH 28.4 pg (26.0-34.0); MCHC 31.7 g/dL (31.0-37.0); MCV 89.5 fL (80.0-100.0); MEAN PLATELET VOLUME 9.6 fL (7.4-10.4); PLATELET COUNT 222 10x3/uL (130-400); RBC 3.52 10x6/uL (4.20-6.10); RDW 18.4 % (11.5-14.5); WBC 22.6 10x3/uL (4.8-10.8)
[2018-04-04 15:12] LABS: INR 1.51 (0.85-1.17); PROTIME 17.7 SECONDS (11.6-15.0)
[2018-04-04 15:13] LABS: ALBUMIN 2.5 g/dL (3.4-5.0); ANION GAP 9.5 mmol/L (8-16); BILIRUBIN - TOTAL 1.38 mg/dL (0.2-1.3); CALCIUM 8.7 mg/dL (8.5-10.1); CREATININE - SERUM 1.4 mg/dL (0.6-1.3); POTASSIUM - SERUM 3.5 mmol/L (3.5-5.1); PROTEIN - SERUM 6.4 g/dL (6.4-8.2)
[2018-04-04 15:31] LABS: LYMPHOCYTES 1 % (15-50); MONOCYTES 1 % (2-11); NEUTROPHILS 96 % (40-80); PLATELET ESTIMATE NORMAL
[2018-04-04 15:32] LABS: PLATELET MORPHOLOGY GIANT PLTS PRESENT
[2018-04-04 16:24] LABS: HEMATOCRIT 31.4 % (42.0-54.0); HEMOGLOBIN 10.1 g/dL (13.5-17.5)
[2018-04-04 16:24] LABS: APPEARANCE TURBID (CLEAR); COLOR RED (YELLOW); NITRITE NEGATIVE (NEGATIVE); PROTEIN 3+ mg/dL (NEGATIVE); SPECIFIC GRAVITY 1.015 (1.005-1.020)
[2018-04-04 16:25] LABS: BILIRUBIN NEGATIVE (NEGATIVE); GLUCOSE NEGATIVE (NEGATIVE); KETONE NEGATIVE (NEGATIVE); UROBILINOGEN NORMAL (NORMAL)
[2018-04-04 16:27] LABS: BACTERIA MODERATE /hpf (NONE SEEN); EPITHELIAL CELLS OCC /hpf (0-5); RED CELLS - URINE >50 /hpf (0-5)
[2018-04-04 20:00] VITALS: BP 102/68
[2018-04-04] MEDS ORDERED: CELEXA20 MG PO (23:49)
[2018-04-05] VITALS (7 sets, daily range): BP systolic 89–108; BP diastolic 57–69; Ht 182.9 cm; Wt 71.7 kg
[2018-04-05 04:58] LABS: BASOPHILS 0.1 % (0-2); EOSINOPHILS 0.7 % (0-7); HEMATOCRIT 31.2 % (42.0-54.0); IMMATURE GRANULOCYTES 1.1 % (0-5); LYMPHOCYTES 3.2 % (15-50); MCH 28.2 pg (26.0-34.0); MCHC 32.1 g/dL (31.0-37.0); MCV 87.9 fL (80.0-100.0); MEAN PLATELET VOLUME 9.6 fL (7.4-10.4); MONOCYTES 8.7 % (2-11); NEUTROPHILS 86.2 % (40-80); PLATELET COUNT 233 10x3/uL (130-400); RBC 3.55 10x6/uL (4.20-6.10); RDW 18.4 % (11.5-14.5)
[2018-04-05 05:02] LABS: WBC 16.1 10x3/uL (4.8-10.8)
[2018-04-05 05:19] LABS: ANION GAP 10.8 mmol/L (8-16); CALCIUM 8.9 mg/dL (8.5-10.1); CARBON DIOXIDE 34.9 mmol/L (21.0-32.0); CREATININE - SERUM 1.5 mg/dL (0.6-1.3); POTASSIUM - SERUM 3.7 mmol/L (3.5-5.1)
[2018-04-05] MEDS ORDERED: TYLENOL W/CODEI1 TAB PO (05:57)
[2018-04-06 01:01] VITALS: BP 99/54
[2018-04-06 04:35] LABS: BASOPHILS 0.1 % (0-2); EOSINOPHILS 0.6 % (0-7); HEMATOCRIT 29.7 % (42.0-54.0); HEMOGLOBIN 9.4 g/dL (13.5-17.5); IMMATURE GRANULOCYTES 0.9 % (0-5); LYMPHOCYTES 3.7 % (15-50); MCH 28.1 pg (26.0-34.0); MCHC 31.6 g/dL (31.0-37.0); MCV 88.7 fL (80.0-100.0); MEAN PLATELET VOLUME 9.6 fL (7.4-10.4); MONOCYTES 5.5 % (2-11); NEUTROPHILS 89.2 % (40-80); PLATELET COUNT 216 10x3/uL (130-400); RBC 3.35 10x6/uL (4.20-6.10); RDW 18.6 % (11.5-14.5); WBC 18.6 10x3/uL (4.8-10.8)
[2018-04-06 04:45] VITALS: BP 102/64
[2018-04-06 04:49] LABS: ANION GAP 5.2 mmol/L (8-16); CALCIUM 8.7 mg/dL (8.5-10.1); CARBON DIOXIDE 36.8 mmol/L (21.0-32.0); CREATININE - SERUM 1.6 mg/dL (0.6-1.3)
[2018-04-06 08:16] VITALS: BP 98/63
[2018-04-06 13:02] VITALS: BP 108/60
[2018-04-06 16:50] VITALS: BP 90/54
[2018-04-06 21:07] VITALS: BP 105/73
[2018-04-07 01:17] VITALS: BP 124/74
[2018-04-07 04:22] LABS: BASOPHILS 0.1 % (0-2); EOSINOPHILS 0.5 % (0-7); HEMATOCRIT 29.9 % (42.0-54.0); HEMOGLOBIN 9.5 g/dL (13.5-17.5); IMMATURE GRANULOCYTES 0.8 % (0-5); LYMPHOCYTES 5.1 % (15-50); MCH 28.4 pg (26.0-34.0); MCHC 31.8 g/dL (31.0-37.0); MCV 89.5 fL (80.0-100.0); MEAN PLATELET VOLUME 9.2 fL (7.4-10.4); MONOCYTES 4.2 % (2-11); NEUTROPHILS 89.3 % (40-80); PLATELET COUNT 207 10x3/uL (130-400); RBC 3.34 10x6/uL (4.20-6.10); RDW 18.9 % (11.5-14.5); WBC 19.3 10x3/uL (4.8-10.8)
[2018-04-07 04:38] LABS: ANION GAP 10.5 mmol/L (8-16); CALCIUM 8.9 mg/dL (8.5-10.1); CARBON DIOXIDE 34.8 mmol/L (21.0-32.0); CREATININE - SERUM 1.5 mg/dL (0.6-1.3)
[2018-04-07 04:40] LABS: POTASSIUM - SERUM 5.3 mmol/L (3.5-5.1)
[2018-04-07 08:00] VITALS: BP 110/64
[2018-04-07 10:53] VITALS: BP 109/68
[2018-04-07 16:04] VITALS: BP 108/60
[2018-04-07 20:15] VITALS: BP 101/71
[2018-04-08 01:48] VITALS: BP 104/75
[2018-04-08 04:53] VITALS: BP 110/65
[2018-04-08 05:03] LABS: BASOPHILS 0.1 % (0-2); EOSINOPHILS 0.7 % (0-7); HEMATOCRIT 30.2 % (42.0-54.0); HEMOGLOBIN 9.7 g/dL (13.5-17.5); IMMATURE GRANULOCYTES 1.6 % (0-5); LYMPHOCYTES 3.5 % (15-50); MCH 28.8 pg (26.0-34.0); MCHC 32.1 g/dL (31.0-37.0); MCV 89.6 fL (80.0-100.0); MEAN PLATELET VOLUME 9.8 fL (7.4-10.4); MONOCYTES 9.2 % (2-11); NEUTROPHILS 84.9 % (40-80); RBC 3.37 10x6/uL (4.20-6.10); RDW 19.5 % (11.5-14.5); WBC 17.4 10x3/uL (4.8-10.8)
[2018-04-08 05:14] LABS: ANION GAP 12.1 mmol/L (8-16); CALCIUM 8.6 mg/dL (8.5-10.1); CARBON DIOXIDE 30.9 mmol/L (21.0-32.0); PLATELET COUNT 260 10x3/uL (130-400)
[2018-04-08 05:52] LABS: APPEARANCE CLOUDY (CLEAR); BILIRUBIN NEGATIVE (NEGATIVE); COLOR DK YELLOW (YELLOW); GLUCOSE NEGATIVE (NEGATIVE); KETONE NEGATIVE (NEGATIVE); NITRITE POSITIVE (NEGATIVE); PROTEIN 3+ mg/dL (NEGATIVE); SPECIFIC GRAVITY 1.015 (1.005-1.020); UROBILINOGEN NORMAL (NORMAL)
[2018-04-08 05:53] LABS: AMORPHOUS SEDIMENT <1+ /lpf (NONE SEEN); BACTERIA MODERATE /hpf (NONE SEEN); EPITHELIAL CELLS 0-5 /hpf (0-5)
[2018-04-08 08:32] VITALS: BP 109/74
[2018-04-08 12:30] VITALS: BP 125/80
[2018-04-08 14:36] LABS: BASOPHILS 0.2 % (0-2); HEMATOCRIT 29.1 % (42.0-54.0); HEMOGLOBIN 9.3 g/dL (13.5-17.5); IMMATURE GRANULOCYTES 1.5 % (0-5); MCH 28.7 pg (26.0-34.0); MCV 89.8 fL (80.0-100.0); MEAN PLATELET VOLUME 9.3 fL (7.4-10.4); NEUTROPHILS 84.3 % (40-80); PLATELET COUNT 236 10x3/uL (130-400); RBC 3.24 10x6/uL (4.20-6.10); RDW 19.4 % (11.5-14.5); WBC 17.5 10x3/uL (4.8-10.8)
[2018-04-08 15:05] LABS: ALBUMIN 2.3 g/dL (3.4-5.0); ANION GAP 13.7 mmol/L (8-16); BILIRUBIN - TOTAL 1.19 mg/dL (0.2-1.3); CALCIUM 8.6 mg/dL (8.5-10.1); CARBON DIOXIDE 28.4 mmol/L (21.0-32.0); POTASSIUM - SERUM 5.1 mmol/L (3.5-5.1); PROTEIN - SERUM 6.6 g/dL (6.4-8.2)
[2018-04-08 16:26] VITALS: BP 138/60
[2018-04-08 22:29] VITALS: BP 113/78
[2018-04-09 04:53] VITALS: BP 124/74
[2018-04-09 05:28] LABS: BASOPHILS 0 % (0-2); EOSINOPHILS 0 % (0-7); HEMATOCRIT 30.3 % (42.0-54.0); HEMOGLOBIN 9.5 g/dL (13.5-17.5); IMMATURE GRANULOCYTES 1.7 % (0-5); MCHC 31.4 g/dL (31.0-37.0); MCV 89.4 fL (80.0-100.0); MEAN PLATELET VOLUME 9.5 fL (7.4-10.4); MONOCYTES 2.2 % (2-11); NEUTROPHILS 94.1 % (40-80); PLATELET COUNT 248 10x3/uL (130-400); RBC 3.39 10x6/uL (4.20-6.10); RDW 19.6 % (11.5-14.5)
[2018-04-09 05:37] LABS: WBC 10.4 10x3/uL (4.8-10.8)
[2018-04-09 05:52] LABS: ALBUMIN 2.3 g/dL (3.4-5.0); ANION GAP 15.4 mmol/L (8-16); BILIRUBIN - TOTAL 1.24 mg/dL (0.2-1.3); CALCIUM 8.4 mg/dL (8.5-10.1); CARBON DIOXIDE 29.1 mmol/L (21.0-32.0); CREATININE - SERUM 1.9 mg/dL (0.6-1.3); POTASSIUM - SERUM 5.5 mmol/L (3.5-5.1); PROTEIN - SERUM 6.7 g/dL (6.4-8.2)
[2018-04-09 08:26] VITALS: BP 140/47
[2018-04-09 12:47] VITALS: BP 124/74
[2018-04-09 16:17] VITALS: BP 114/75
[2018-04-09 20:00] VITALS: BP 105/66
[2018-04-10] VITALS: BP 100/67
[2018-04-10 04:00] VITALS: BP 126/80; BP 1269/80
[2018-04-10 05:40] LABS: BASOPHILS 0 % (0-2); EOSINOPHILS 0 % (0-7); HEMOGLOBIN 9.2 g/dL (13.5-17.5); IMMATURE GRANULOCYTES 0.7 % (0-5); LYMPHOCYTES 2.5 % (15-50); MCHC 31.7 g/dL (31.0-37.0); MCV 88.4 fL (80.0-100.0); MEAN PLATELET VOLUME 9.4 fL (7.4-10.4); MONOCYTES 3.7 % (2-11); NEUTROPHILS 93.1 % (40-80); PLATELET COUNT 233 10x3/uL (130-400); RBC 3.28 10x6/uL (4.20-6.10); WBC 11.2 10x3/uL (4.8-10.8)
[2018-04-10 06:27] LABS: ALBUMIN 2.2 g/dL (3.4-5.0); ANION GAP 16.6 mmol/L (8-16); BILIRUBIN - TOTAL 1.06 mg/dL (0.2-1.3); CALCIUM 8.2 mg/dL (8.5-10.1); CARBON DIOXIDE 28.2 mmol/L (21.0-32.0); CREATININE - SERUM 1.9 mg/dL (0.6-1.3); POTASSIUM - SERUM 3.8 mmol/L (3.5-5.1); PROTEIN - SERUM 6.4 g/dL (6.4-8.2)
[2018-04-10 08:31] VITALS: BP 109/65
[2018-04-10 15:51] VITALS: BP 106/68
[2018-04-10 20:00] VITALS: BP 124/67
[2018-04-11] MEDS ORDERED: BROVANA15 MCG/2 M INH (00:28)
[2018-04-11] MEDS ORDERED: SANTYL30 GM TP (00:28)
[2018-04-11] MEDS ORDERED: PULMICORT0.5 MG/21 INH (00:28)
[2018-04-11] MEDS ORDERED: COLACE100 MG PO (00:29)
[2018-04-11] MEDS ORDERED: HUMALOG 30100 UNITS/ SC (00:30)
[2018-04-11] MEDS ORDERED: FLORAJEN3 CAPS460 MG PO (00:30)
[2018-04-11] MEDS ORDERED: MEGACE400 MG/10 PO (00:30)
[2018-04-11] MEDS ORDERED: SOLU-MEDRO40 MG/1 M1 IV (00:31)
[2018-04-11] MEDS ORDERED: MIRALAX527 GM PO (00:32)
[2018-04-11] MEDS ORDERED: DULCOLAX10 MG/SUPP RC (00:33)
[2018-04-11] MEDS ORDERED: VIBRAMYCIN 100100 M1 IV (00:39)
[2018-04-11] MEDS ORDERED: ZOSYN 3.3753.375 G1 IV (00:39)
[2018-04-11 04:56] LABS: BASOPHILS 0 % (0-2); EOSINOPHILS 0 % (0-7); HEMATOCRIT 30.1 % (42.0-54.0); HEMOGLOBIN 9.6 g/dL (13.5-17.5); IMMATURE GRANULOCYTES 0.7 % (0-5); LYMPHOCYTES 3.9 % (15-50); MCH 28.3 pg (26.0-34.0); MCHC 31.9 g/dL (31.0-37.0); MCV 88.8 fL (80.0-100.0); MEAN PLATELET VOLUME 9.6 fL (7.4-10.4); MONOCYTES 4.2 % (2-11); NEUTROPHILS 91.2 % (40-80); PLATELET COUNT 247 10x3/uL (130-400); RBC 3.39 10x6/uL (4.20-6.10); RDW 20.3 % (11.5-14.5); WBC 13.5 10x3/uL (4.8-10.8)
[2018-04-11 05:32] LABS: ALBUMIN 2.3 g/dL (3.4-5.0); ANION GAP 17.9 mmol/L (8-16); BILIRUBIN - TOTAL 0.92 mg/dL (0.2-1.3); CALCIUM 8.4 mg/dL (8.5-10.1); CARBON DIOXIDE 27.1 mmol/L (21.0-32.0); PROTEIN - SERUM 6.5 g/dL (6.4-8.2)
[2018-04-11 20:00] VITALS: BP 125/81
[2018-04-12 04:20] VITALS: BP 112/79
[2018-04-12 05:47] LABS: BASOPHILS 0 % (0-2); EOSINOPHILS 0 % (0-7); HEMATOCRIT 29.8 % (42.0-54.0); HEMOGLOBIN 9.6 g/dL (13.5-17.5); IMMATURE GRANULOCYTES 0.4 % (0-5); LYMPHOCYTES 1.4 % (15-50); MCH 28.3 pg (26.0-34.0); MCHC 32.2 g/dL (31.0-37.0); MCV 87.9 fL (80.0-100.0); MEAN PLATELET VOLUME 9.1 fL (7.4-10.4); MONOCYTES 5.2 % (2-11); PLATELET COUNT 206 10x3/uL (130-400); RBC 3.39 10x6/uL (4.20-6.10); RDW 20.2 % (11.5-14.5); WBC 11.5 10x3/uL (4.8-10.8)
[2018-04-12 06:14] LABS: ALBUMIN 2.4 g/dL (3.4-5.0); ANION GAP 14.9 mmol/L (8-16); BILIRUBIN - TOTAL 1.03 mg/dL (0.2-1.3); CALCIUM 8.8 mg/dL (8.5-10.1); CREATININE - SERUM 1.7 mg/dL (0.6-1.3); POTASSIUM - SERUM 3.9 mmol/L (3.5-5.1); PROTEIN - SERUM 6.5 g/dL (6.4-8.2)
[2018-04-12 07:42] VITALS: BP 130/76
[2018-04-12 12:24] VITALS: BP 124/87
[2018-04-12 16:42] VITALS: BP 116/75
[2018-04-12 20:00] VITALS: BP 113/63
[2018-04-13 06:01] LABS: BASOPHILS 0 % (0-2); EOSINOPHILS 0 % (0-7); HEMOGLOBIN 9.8 g/dL (13.5-17.5); IMMATURE GRANULOCYTES 0.3 % (0-5); LYMPHOCYTES 5.4 % (15-50); MCH 28.6 pg (26.0-34.0); MCHC 32.7 g/dL (31.0-37.0); MCV 87.5 fL (80.0-100.0); MEAN PLATELET VOLUME 9.2 fL (7.4-10.4); MONOCYTES 3.4 % (2-11); NEUTROPHILS 90.9 % (40-80); PLATELET COUNT 192 10x3/uL (130-400); RBC 3.43 10x6/uL (4.20-6.10); RDW 19.8 % (11.5-14.5)
[2018-04-13 06:07] LABS: WBC 16.4 10x3/uL (4.8-10.8)
[2018-04-13 06:23] LABS: ALBUMIN 2.4 g/dL (3.4-5.0); ANION GAP 8.6 mmol/L (8-16); BILIRUBIN - TOTAL 0.9 mg/dL (0.2-1.3); CALCIUM 8.8 mg/dL (8.5-10.1); CARBON DIOXIDE 34.1 mmol/L (21.0-32.0); CREATININE - SERUM 1.7 mg/dL (0.6-1.3); POTASSIUM - SERUM 3.7 mmol/L (3.5-5.1); PROTEIN - SERUM 6.3 g/dL (6.4-8.2)
[2018-04-13 08:29] VITALS: BP 120/69
[2018-04-13 12:48] VITALS: BP 122/80
[2018-04-13 20:00] VITALS: BP 127/78
[2018-04-13 23:38] VITALS: BP 113/89
[2018-04-14 04:00] VITALS: BP 122/73
[2018-04-14 09:09] VITALS: BP 98/74
[2018-04-14 10:11] LABS: BASOPHILS 0.1 % (0-2); EOSINOPHILS 0.1 % (0-7); HEMATOCRIT 30.7 % (42.0-54.0); HEMOGLOBIN 9.7 g/dL (13.5-17.5); IMMATURE GRANULOCYTES 0.3 % (0-5); LYMPHOCYTES 4.8 % (15-50); MCH 27.9 pg (26.0-34.0); MCHC 31.6 g/dL (31.0-37.0); MCV 88.2 fL (80.0-100.0); MONOCYTES 2.8 % (2-11); NEUTROPHILS 91.9 % (40-80); PLATELET COUNT 192 10x3/uL (130-400); RBC 3.48 10x6/uL (4.20-6.10); WBC 19.3 10x3/uL (4.8-10.8)
[2018-04-14 10:42] LABS: ANION GAP 10.3 mmol/L (8-16); CARBON DIOXIDE 31.8 mmol/L (21.0-32.0); CREATININE - SERUM 1.7 mg/dL (0.6-1.3); POTASSIUM - SERUM 4.1 mmol/L (3.5-5.1)
[2018-04-14 12:38] VITALS: BP 93/13
[2018-04-14 17:07] VITALS: BP 123/73
[2018-04-14 20:00] VITALS: BP 123/78
[2018-04-15] VITALS: BP 120/79
[2018-04-15 04:45] VITALS: BP 125/74
[2018-04-15 08:33] VITALS: BP 113/65
[2018-04-15 13:18] VITALS: BP 155/69
[2018-04-15] MEDS ORDERED: PULMICORT0.5 MG/21 UPD (14:48)
[2018-04-15] MEDS ORDERED: BROVANA15 MCG/2 M INH (14:48)
[2018-04-15] MEDS ORDERED: COLACE100 MG PO (14:48)
[2018-04-15] MEDS ORDERED: COMBIVENT RESPIM4 GM INH (14:48)
[2018-04-15] MEDS ORDERED: IPRAT-ALBUT 0.5-3 ML UPD (14:48)
[2018-04-15] MEDS ORDERED: SINGULAIR10 MG PO (14:48)
[2018-04-15] MEDS ORDERED: JANUVIA50 MG PO (14:48)
[2018-04-15] MEDS ORDERED: SYNTHROID125 MCG PO (14:48)
[2018-04-15] MEDS ORDERED: PREDNISONE20 MG PO (14:48)
[2018-04-15] MEDS ORDERED: CORDARONE200 MG PO (14:48)
== END 2018-04-15 18:05 | disposition home health service (06) | DRG 698 ==
LOC: D.ER 14:21 → D.ICU 17:18 → D.MS 17:18 → D.ICU 04-08 13:53 → D.MS 04-08 13:57
PROVIDERS: Emergency Medicine; Family Medicine; Internal Medicine Nephrology; Student in an Organized Health Care Education/Training Program; Urology
PROC: 0TCB8ZZ Extirpation of Matter from Bladder, Via Natural or Artificial Opening Endoscopic (ICD-10-PCS; principal; 2018-04-07 14:30)
DX: T83.511A Infection and inflammatory reaction due to indwelling urethral catheter, initial encounter (principal); E43 Unspecified severe protein-calorie malnutrition; J96.21 Acute and chronic respiratory failure with hypoxia; J18.1 Lobar pneumonia, unspecified organism; I13.0 Hypertensive heart and chronic kidney disease with heart failure and stage 1 through stage 4 chronic kidney disease, or unspecified chronic kidney disease; I50.22 Chronic systolic (congestive) heart failure; E87.1 Hypo-osmolality and hyponatremia; N17.9 Acute kidney failure, unspecified; D62 Acute posthemorrhagic anemia; J44.1 Chronic obstructive pulmonary disease with (acute) exacerbation; N32.89 Other specified disorders of bladder; R31.9 Hematuria, unspecified; Z66 Do not resuscitate; I48.91 Unspecified atrial fibrillation; N39.0 Urinary tract infection, site not specified; R33.9 Retention of urine, unspecified; E11.40 Type 2 diabetes mellitus with diabetic neuropathy, unspecified; E11.65 Type 2 diabetes mellitus with hyperglycemia; F41.9 Anxiety disorder, unspecified; N18.9 Chronic kidney disease, unspecified; E11.22 Type 2 diabetes mellitus with diabetic chronic kidney disease; M32.9 Systemic lupus erythematosus, unspecified; F10.20 Alcohol dependence, uncomplicated; E03.9 Hypothyroidism, unspecified; I25.10 Atherosclerotic heart disease of native coronary artery without angina pectoris; Z68.21 Body mass index [BMI] 21.0-21.9, adult; I71.2 Thoracic aortic aneurysm, without rupture; I48.0 Paroxysmal atrial fibrillation; B95.62 Methicillin resistant Staphylococcus aureus infection as the cause of diseases classified elsewhere; B96.5 Pseudomonas (aeruginosa) (mallei) (pseudomallei) as the cause of diseases classified elsewhere; I27.20 Pulmonary hypertension, unspecified; E87.5 Hyperkalemia